=== PATIENT | male | born 1970 ===

== ENCOUNTER 2017-06-15 10:25 | Inpatient (IN) | payer SELFPAY ==
[2017-06-15 11:32] LABS: BASO % 0.9 % (0.0-2.0); EOS # 0.1 K/uL (0.0-0.7); EOS % 2.7 % (0.0-4.0); HEMATOCRIT 43.9 % (35.0-51.0); LYMPH # 0.9 K/uL (1.0-4.3); MEAN CORPUSCULAR HEMOGLOBIN 33.5 pg (27.0-31.0); MEAN CORPUSCULAR HGB CONC 33.1 g/dL (33.0-37.0); MEAN PLATELET VOLUME 7.4 fL (7.2-11.7); MONO # 0.3 K/uL (0.0-0.8); MONO % 9.7 % (0.0-10.0); RED CELL DISTRIBUTION WIDTH 13.4 % (11.5-14.5); WHITE BLOOD COUNT 2.9 K/uL (4.8-10.8)
[2017-06-15 11:39] LABS: RBC URINE 6 /hpf (0-3); URINE BACTERIA RARE (<OCC); URINE BILIRUBIN NEGATIVE (NEGATIVE); URINE BLOOD NEGATIVE (NEGATIVE); URINE COLOR Yellow (YELLOW); URINE GLUCOSE (UA) NORMAL (Normal); URINE KETONE TRACE mg/dL (NEGATIVE); URINE LEUKOCYTE ESTERASE 2+ Leu/uL (Negative); URINE PROTEIN NEGATIVE (NEGATIVE); WBC URINE 71 /hpf (0-5)
[2017-06-15 11:40] LABS: CHLORIDE 102 mmol/L (98-107)
[2017-06-15 11:41] LABS: SODIUM 141 mmol/L (132-148)
[2017-06-15 11:42] LABS: POTASSIUM 3.5 mmol/L (3.6-5.2)
[2017-06-15 11:44] LABS: ALB/GLOB RATIO 1.3 (1.0-2.1); ALKALINE PHOSPHATASE 76 U/L (38-126); ALT/SGPT 38 U/L (21-72); AST/SGOT 63 U/L (17-59); BILIRUBIN,TOTAL 1.1 mg/dL (0.2-1.3); BLOOD UREA NITROGEN 7 mg/dL (9-20); CARBON DIOXIDE 24 mmol/L (22-30); GFR AFRICAN-AMERICAN > 60; TOTAL PROTEIN 7.7 g/dL (6.3-8.3)
[2017-06-15 11:45] LABS: ALCOHOL SERUM 53 mg/dl (0-10); CALCIUM 8.6 mg/dl (8.6-10.4); GLUCOSE,RANDOM 80 mg/dL (75-110)
--- NOTE | 2017-06-15 12:16 | C.PDOC ---
History Of Present Illness 46-year-old male presents to the emergency department requesting detox from alcohol. Patient denies any physical complaints at this time, and has no suicidal or homicidal ideations. Time Seen by Provider: 06/15/17 10:31 Chief Complaint (Nursing): Substance Abuse History Per: Patient History/Exam Limitations: no limitations Onset/Duration Of Symptoms: Persistent Suicide/Self Injury Attempted (Context): None Modifying Factor(s): Alcohol Severity: Moderate Past Medical History Reviewed: Historical Data, Nursing Documentation, Vital Signs Vital Signs: Last Vital Signs Temp 97.8 F 06/19/17 09:00 Pulse 90 06/19/17 09:00 Resp 18 06/19/17 09:00 BP 116/81 06/19/17 09:00 Pulse Ox 99 06/19/17 09:00 Family History: States: No Known Family Hx - Social History Hx Alcohol Use: Yes Hx Substance Use: No Review Of Systems Except As Marked, All Systems Reviewed And Found Negative. Constitutional: Negative for: Fever Cardiovascular: Negative for: Chest Pain Respiratory: Negative for: Cough, Shortness of Breath Gastrointestinal: Negative for: Nausea, Vomiting, Abdominal Pain, Diarrhea Psych: Negative for: Suicidal ideation Physical Exam - Physical Exam Appears: Well, Non-toxic, No Acute Distress Skin: Normal Color, Warm, Dry, No Rash Head: Atraumatic, Normacephalic Eye(s): bilateral: Normal Inspection Oral Mucosa: Moist Neck: Normal, Normal ROM Cardiovascular: Rhythm Regular Respiratory: Normal Breath Sounds, No Rales, No Rhonchi, No Wheezing Extremity: Normal ROM Extremity: Bilateral: Atraumatic, Normal Color And Temperature, Normal ROM Neurological/Psych: Oriented x3 Gait: Steady ED Course And Treatment - Laboratory Results Result Diagrams: 06/15/17 11:25 06/15/17 11:25 O2 Sat by Pulse Oximetry: 100 (RA) Pulse Ox Interpretation: Normal Progress Note: Blood work, UA, UDS ordered and reviewed. 12:15- Patient medically cleared. Pending crisis. 5:00PM- Patient apparently told earlier by counselor that no beds available, however this information was not conveyed to nurse or myself. Crisis counselor Shona is pending call back from psychiatrist, there is currently bed available. 5:20pm- Patient c/o mild tremors and epigastric abd pain. PO Pepcid, Ativan and Librium ordered. 5:40pm - Patient accepted by Dr. Isabel for alcohol dependence admission. Disposition - Disposition Disposition: HOSPITALIZED Disposition Time: 17:40 Condition: STABLE - Clinical Impression Clinical Impression: Alcohol dependence - Scribe Statement The provider has reviewed the documentation as recorded by the Scribe (Lois Stanton) All medical record entries made by the Scribe were at my direction and personally dictated by me. I have reviewed the chart and agree that the record accurately reflects my personal performance of the history, physical exam, medical decision making, and the department course for this patient. I have also personally directed, reviewed, and agree with the discharge instructions and disposition. Decision To Admit - Pt Status Changed To: Hospital Disposition Of: Inpatient - Admit Certification Admit to Inpatient:: After my assessment, the patient will require hospitalization for at least two midnights. This is because of the severity of symptoms shown, intensity of services needed, and/or the medical risk in this patient being treated as an outpatient. - InPatient: Physician Admission Certification: I certify that this patient requires 2 or more midnights of care for the following reason:: see notes - . Bed Request Type: Detox Admitting Physician: Priya Isabel Patient Diagnosis: Alcohol dependence
--- NOTE | 2017-06-15 18:28 | PCM.BM ---
<Diane Stallings - Last Filed: 06/15/17 18:27> Treatment Plan Problems - Problems identified on initial assessmt Alcohol Abuse Date Initiated: 06/15/17 Time Initiated: 18:27 Assessment reference: NA Treatment assets and liabiliti Patient Assests: ADL independent Patient Liabilities: substance abuse - Milieu Protocol Maintain good personal hygiene: daily Encourage regular showers, daily Remind patient to perform daily oral care, other Assist patient to perform ADL's Maintain personal safety: every shift Educate patient to report safety concerns to staff, every shift Monitor environment for contraband/sharps Medication safety: Monitor for expected outcome, potential side effects: every shift, Assess barriers to learning: every shift, Assess readiness for medication education: every shift <Leah Weldon - Last Filed: 06/16/17 14:43> Family Contact Family involvement: Famliy/SO not involved Family contact: Patient declines to allow family contact at present - Goals for Treatment Patient goals for treatment: transition to short term rehab as requested. Discharge/Continuing Care - Education Needs Education Needs: Patient Medication, Patient Diagnosis/Disease Process, Patient Coping Skills, Patient Anger Management skills, Patient Placement options, Patient Community resources - Discharge Discharge Criteria: Tolerates medication w/o severe side effects, No longer exhibiting s/s of withdrawal, Reduction of target symptoms <Priya Isabel - Last Filed: 06/16/17 23:52> - Diagnosis (1) Alcohol use disorder, severe, dependence Status: Acute Interventions: 06/16/17 23:52 * Assess 7x/week regarding severity of withdrawal * Educate regarding risks, benefits, side effects and alternatives of medications * Use Motivational Interviewing for abstinence * Use CBT for relapse prevention * Medication management for withdrawal symptoms * Encourage medication assisted treatment *
[2017-06-16] MEDS ORDERED: Aluminum Hydroxide/Magnesium Hydroxide Susp (30 mL) PO PRN (00:34)
[2017-06-16] MEDS: Multiple Vitamins Tab PO SCH (09:23)
--- NOTE | 2017-06-16 15:50 | PCM.PSYCH ---
Initial Psychiatric Evaluation - Initial Psychiatric Evaluation Type of Admission: Voluntary Legal Status: Capacity Chief Complaint (in patient's own words): 'I needed to get clean and straighten out my life' History of Present Illness and Precipitating Events: Patient is a 46-year-old male, who is homeless and unemployed, came to the hospital seeking detox for alcohol. Patient states that he became homeless 2 weeks ago and started drinking alcohol , and abusing cocaine. He states that he drinks 2-4 pints of liquor, and 30 12- oz. beer cans daily. He also reports of abusing cocaine when he drinks alcohol, and states that he snorts "as much as I can get." Patient states that he was having pains all over body, shakes, and could not walk when he came in yesterday. Currently, he reports of only mild shakes. Patient denies any other symptoms. Patient denies any suicidal ideations. Patient denies any delusions, paranoia, or hallucinations. Patient reports of smoking cigarettes 2 PPD. He denies abusing any other substances. Patient denies any past psychiatric history, past psychiatric hospitalizations, past medical history, or family psychiatric history. Patient reports history of rehabs for alcohol use disorder twice - one 1.5 months ago, and another years ago. Patient reports extensive history of drinking, and states that he drank more than 4 pints of liquor plus "many" beers every day. He states that his drinking exacerbated when his children moved out of his house 6-8 months ago. He also reports of abusing cocaine when he drinks alcohol. Patient denies abusing any other substances. After detox, patient states that he will go to a correction, and try to find a job. Current Medications: Active Medications Generic Name Dose Route Start Last Admin Trade Name Freq PRN Reason Stop Dose Admin Acetaminophen 650 mg 06/16/17 00:34 Tylenol 325mg Tab PO Q4H PRN Fever greater than 101 F Al Hydrox/Mg Hydrox/Simethicone 30 ml 06/16/17 00:34 Maalox 30 Ml PO TID PRN Indigestion / Heartburn Chlordiazepoxide 25 mg 06/16/17 06:00 06/16/17 12:51 Librium PO 06/20/17 05:59 25 mg Q6 SHANEL Administration Taper Chlordiazepoxide 25 mg 06/16/17 05:57 06/16/17 09:23 Librium PO 25 mg Q4H PRN Administration Alcohol Withdrawal Clonidine HCl 0.1 mg 06/16/17 00:33 06/16/17 13:34 Catapres PO 0.1 mg Q4H PRN Administration Symptoms of alcohol withdrawl Folic Acid 1 mg 06/16/17 10:00 06/16/17 09:23 Folic Acid PO 1 mg DAILY SHANEL Administration Multivitamins 1 tab 06/16/17 10:00 06/16/17 09:23 Hexavitamin PO 1 tab DAILY SHANEL Administration Ondansetron HCl 4 mg 06/16/17 00:34 Zofran Tab PO Q8 PRN Nausea/Vomiting Thiamine HCl 100 mg 06/16/17 10:00 06/16/17 09:23 Vitamin B1 Tab PO 100 mg DAILY SHANEL Administration Trazodone HCl 50 mg 06/16/17 00:33 Desyrel PO HS PRN Insomnia Past Psychiatric History - Past Psychiatric History Previous Treatment History: None Pertinent Medical Hx (Current Medical&Sleep Prob, Allergies): Allergies Allergy/AdvReac Type Severity Reaction Status Date / Time No Known Allergies Allergy Unverified 06/15/17 11:02 No Known Home Med 06/15/17 Review of Systems - Neurological Neurological: Tremor Mental Status Examination - Personal Presentation Personal Presentation: Looks stated age - Affect Affect: Other (Appropriate) - Motor Activity Motor Activity: Calm - Reliability in Providing Information Reliability in Providing Information: Good - Speech Speech: Organized - Mood Mood: Neutral - Formal Thought Process Formal Thought Process: No Impairment - Cognitive Functions Orientation: Person, Place, Situation, Time Sensorium: Alert Estimate of Intelligence: Below average Judgement: Intact, as evidence by: Insight regarding need for hospitalization Memory: Recent intact, as evidence by: Ability to recall events of the day, Remote intact, as evidenced by: Abilit to recall sig. life events - Risk Risk: Withdrawal, Diminished functioning - Strength & Assets Inventory Strength & Assets Inventory: Cooperative - Limitations Limitations: Living alone DSM 5 DX - DSM 5 DSM 5 Diagnosis: alcohol use disorder - severe alcohol withdrawal cocaine use disorder - severe - Recommended/Plan of Treatment Treatment Recommendations and Plan of Treatment: Librium detox Gabapentin for augmentation As needed meds and vitamins Attend groups and activities [place] for abstinence and CBT for relapse prevention Support and psychoeducation Consider and encourage MAT Refer to after care - pt states he will go to a correction 33 min Projected ELOS: 3-5 days
[2017-06-17] MEDS: Multiple Vitamins Tab PO SCH (09:07)
[2017-06-17 13:38] VITALS: RESP 18
--- NOTE | 2017-06-17 14:09 | PCM.PYCHPN ---
Psychiatric Progress Note - Psychiatric Progress Note Patient seen today, length of contact: 15 min Patient Chief Complaint: "A little better than yesterday" Problems Identified/Issues Discussed: Patient is seen, evaluated, and case discussed with staff. Patient reports of feeling better today. He states that tremors have stopped. He states that he was not able to sleep well. Patient denies any other symptoms. He denies any suicidal ideations. Patient is compliant with all medications, and denies any side effects. Patient states that he will either go to a penitentiary or his father's home after discharge. Support and psychoeducation given. Medication Change: Yes (detox changes daily) Medical Record Reviewed: Yes Mental Status Examination - Cognitive Function Orientation: Person, Place, Situation, Time Memory: Intact Attention: WNL Concentration: Poor Association: WNL Fund of Knowledge: Poor - Mood Mood: Neutral - Affect Affect: Other (Appropriate) - Speech Speech: Appropriate - Formal Thought Process Formal Thought Process: No Impairment - Suicidal Ideation Suicidal Ideation: No - Homicidal Ideation Homicidal Ideation: No Goal/Treatment Plan - Goal/Treatment Plan Need for Continued Stay: Discharge may exacerbated symptoms Progress Toward Problem(s) and Goals/Treatment Plan: Librium detox Gabapentin for augmentation As needed meds and vitamins Attend groups and activities [place] for abstinence and CBT for relapse prevention Support and psychoeducation Consider and encourage MAT Refer to after care - pt states he will go to a penitentiary or back to his father's house Estimated Date of D/C: 06/18/17
[2017-06-18] MEDS: Multiple Vitamins Tab PO SCH (09:19)
--- NOTE | 2017-06-18 11:37 | PCM.PYCHPN ---
Psychiatric Progress Note - Psychiatric Progress Note Patient seen today, length of contact: 16 min Patient Chief Complaint: "Couldn't sleep last night" Problems Identified/Issues Discussed: Patient is seen, evaluated, and case discussed with staff. Patient reports of feeling "okay" today. He states that tremors have stopped. He states that he could not sleep well. Patient denies any other symptoms. He denies any suicidal ideations. Patient is compliant with all medications, and denies any side effects. Patient states that he will either go to a fdc, his father's home, or perhaps back to [place] after discharge. Support and psychoeducation given. Medication Change: Yes (detox changes daily) Medical Record Reviewed: Yes Mental Status Examination - Cognitive Function Orientation: Person, Place, Situation, Time Memory: Intact Attention: WNL Concentration: Poor Association: WNL Fund of Knowledge: Poor - Mood Mood: Neutral - Affect Affect: Depressed - Speech Speech: Appropriate - Formal Thought Process Formal Thought Process: No Impairment - Suicidal Ideation Suicidal Ideation: No - Homicidal Ideation Homicidal Ideation: No Goal/Treatment Plan - Goal/Treatment Plan Need for Continued Stay: Discharge may exacerbated symptoms Progress Toward Problem(s) and Goals/Treatment Plan: Librium detox As needed meds and vitamins Attend groups and activities [place] for abstinence and CBT for relapse prevention Support and psychoeducation Consider and encourage MAT Refer to after care - pt states he will go to a fdc, back to his father's house, or [place] Estimated Date of D/C: 06/19/17
--- NOTE | 2017-06-19 08:34 | PCM.PYCHDC ---
Mental Status Examination - Mental Status Examination Orientation: Person, Place, Situation, Time Memory: Intact Mood: Anxious Affect: Constricted Speech: Appropriate Attention: WNL Concentration: WNL Association: WNL Fund of Knowledge: WNL Formal Thought Process: No Impairment Suicidal Ideation: No Current Homicidal Ideation?: No Discharge Summary - Discharge Note Reason for Hospitalization: Alcohol detox Psychiatric History (includes Medical, Family, Personal Hx): None Consultations:: List each consultation separately and include: 1. Reason for request. 2. Findings. 3. Follow-up Summary of Hospital Course include:: 1. Description of specific treatment plan utilized for patients during their course of treatmen. 2. Summarize the time- course for resolution of acute symptoms and/or regressed behaviors. 3. Describe issues identified and worked on during hospitalization. 4. Describe medication utilized. 5. Describe medical problems identified and treated. 6. Reassessment of suicide risk Summary of Hospital Course: On admission: Patient is a 46-year-old male, who is homeless and unemployed, came to the hospital seeking detox for alcohol. Patient states that he became homeless 2 weeks ago and started drinking alcohol , and abusing cocaine. He states that he drinks 2-4 pints of liquor, and 30 12- oz. beer cans daily. He also reports of abusing cocaine when he drinks alcohol, and states that he snorts "as much as I can get." Patient states that he was having pains all over body, shakes, and could not walk when he came in yesterday. Currently, he reports of only mild shakes. Patient denies any other symptoms. Patient denies any suicidal ideations. Patient denies any delusions, paranoia, or hallucinations. Patient reports of smoking cigarettes 2 PPD. He denies abusing any other substances. Patient denies any past psychiatric history, past psychiatric hospitalizations, past medical history, or family psychiatric history. Patient reports history of rehabs for alcohol use disorder twice - one 1.5 months ago, and another years ago. Patient reports extensive history of drinking, and states that he drank more than 4 pints of liquor plus "many" beers every day. He states that his drinking exacerbated when his children moved out of his house 6-8 months ago. He also reports of abusing cocaine when he drinks alcohol. Patient denies abusing any other substances. After detox, patient states that he will go to a retirement, and try to find a job. Hospital course: The pt was admitted and started on treatment with psychotherapy, support, psychoeducation and medications. [place] and CBT used. The pt attended groups and activities, as well as milieu therapy. All the risks and benefits of medications are discussed and the patient understood and agreed. The pt improved with the treatments provided. After care discussed with the patient. He was undecided and unmotivated. He refused IOP or rehab options. The real reason he was here was mainly bc his fa "kicked him out." and by doing detox he hoped to return He also has a plan to go back to [place] if his plan A fails. - Final Diagnosis (DSM 5) Condition upon Discharge: STABLE DSM 5: alcohol use disorder - severe alcohol withdrawal cocaine use disorder - severe Disposition: HOME/ ROUTINE Follow-up Treatment Plan: Continue below medications after discharge. Follow after care plan as discussed. Use relapse prevention skills Return to ER or call 911 if suicidal, homicidal or symptoms relapse. Stay away from stress, alcohol and drugs. See primary doctor once a year. Prescriptions/Medication Reconciliation: traZODone [Desyrel] 50 mg PO HS PRN #30 tab PRN Reason: Insomnia - Smoking Cessation Smoking Cessation Medication prescribed: No - Antipsychotic Medications Pt discharged on 2 or more routine antipsychotic medications: No
[2017-06-19] MEDS: Multiple Vitamins Tab PO SCH (09:48)
[2017-06-19 11:26] VITALS: BP 116/81; PULSE 90; TEMP 97.8
[2017-06-19 13:01] VITALS: O2SAT 100
== END 2017-06-19 10:45 | disposition home or self-care (01) | DRG 999 ==
LOC: C.ER 10:25 → C.7D 17:36
PROVIDERS: ADMIT Psychiatry & Neurology Psychiatry; ATTEND Psychiatry & Neurology Psychiatry
PROC: HZ2ZZZZ Detoxification Services for Substance Abuse Treatment (ICD-10-PCS; principal; 2017-06-15)
DX: Y90.2 Blood alcohol level of 40-59 mg/100 ml (principal); F10.220 Alcohol dependence with intoxication, uncomplicated; F10.230 Alcohol dependence with withdrawal, uncomplicated; F14.90 Cocaine use, unspecified, uncomplicated; F17.210 Nicotine dependence, cigarettes, uncomplicated; Z59.0 Homelessness

== ENCOUNTER 2017-07-17 18:55 | Observation (INO) | payer SELFPAY ==
--- NOTE | 2017-07-17 21:01 | C.PDOC ---
History Of Present Illness Patient presents to the ER with acute ETOH intoxication. Patient states he does not want detox and is requesting a place to day the night. Denies suicidal ideation or homicidal ideation. Time Seen by Provider: 07/17/17 21:00 Chief Complaint (Nursing): Psychiatric Evaluation History Per: Patient History/Exam Limitations: no limitations Onset/Duration Of Symptoms: Hrs Current Symptoms Are (Timing): Still Present Suicide/Self Injury Attempted (Context): None Modifying Factor(s): Alcohol Severity: None Pain Scale Rating Of: 0 Associated Symptoms: denies: Depression, Suicidal Thoughts, Suicidal Plan Involuntary Hold By: None Recent travel outside of the [place]: No Past Medical History Reviewed: Historical Data, Nursing Documentation, Vital Signs Vital Signs: Last Vital Signs Temp 98.1 F 07/18/17 05:07 Pulse 71 07/18/17 05:07 Resp 16 07/18/17 05:07 BP 103/69 07/18/17 05:07 Pulse Ox 97 07/18/17 05:07 - Medical History PMH: Asthma, Depression Surgical History: No Surg Hx - [facility] DETOXIFICATION SERVICES FOR SUBSTANCE ABUSE TREATMENT (06/15/17) Family History: States: No Known Family Hx - Social History Hx Alcohol Use: Yes Hx Substance Use: No - Immunization History Hx Tetanus Toxoid Vaccination: No Hx Influenza Vaccination: No Hx Pneumococcal Vaccination: No Review Of Systems Constitutional: Negative for: Fever, Chills Gastrointestinal: Negative for: Nausea, Vomiting, Diarrhea Physical Exam - Physical Exam Appears: Non-toxic, Other (Arousable) Skin: Warm, Dry Oral Mucosa: Moist Chest: Symmetrical, No Tenderness Cardiovascular: Rhythm Regular, No Murmur Respiratory: No Rales, No Rhonchi, No Wheezing Gastrointestinal/Abdominal: Soft, No Tenderness Extremity: Normal ROM (x4) Neurological/Psych: Oriented x3 ED Course And Treatment - Laboratory Results Result Diagrams: 07/17/17 21:26 07/17/17 21:26 O2 Sat by Pulse Oximetry: 96 (Room air) Pulse Ox Interpretation: Normal Progress Note: Blood work and urinalysis ordered. ED OBSERVATION Discharge: Yes Date of observation admission: 07/17/17 Time of observation admission: 21:11 - Observation admission statement Patient is being placed in observation because:: Acute ETOH intoxication - Goals of Observation Goals of observation are:: Sobriety - Progress Note Progress Note: 07/17/17 21:11 vitals stable 07/18/17 01:31 no complaints 07/18/17 03:31 vitals stable Disposition Counseled Patient/Family Regarding: Studies Performed, Diagnosis, Need For Followup - Disposition Disposition: HOME/ ROUTINE Disposition Time: 21:01 Condition: FAIR - Clinical Impression Clinical Impression: Alcohol intoxication - Scribe Statement The provider has reviewed the documentation as recorded by the Scribe Omar Ivy All medical record entries made by the Ronnyibshona were at my direction and personally dictated by me. I have reviewed the chart and agree that the record accurately reflects my personal performance of the history, physical exam, medical decision making, and the department course for this patient. I have also personally directed, reviewed, and agree with the discharge instructions and disposition.
[2017-07-17 21:30] LABS: EOS # 0.1 K/uL (0.0-0.7); HEMATOCRIT 37.6 % (35.0-51.0); LYMPH # 1.5 K/uL (1.0-4.3); LYMPH % 41.9 % (20.0-40.0); MEAN CELL VOLUME 101.5 fL (80.0-94.0); MEAN CORPUSCULAR HEMOGLOBIN 34.2 pg (27.0-31.0); MEAN CORPUSCULAR HGB CONC 33.7 g/dL (33.0-37.0); MONO # 0.3 K/uL (0.0-0.8); MONO % 8.6 % (0.0-10.0); NRBC % 0.1 % (0.0-2.0); RED CELL DISTRIBUTION WIDTH 13.8 % (11.5-14.5); WHITE BLOOD COUNT 3.6 K/uL (4.8-10.8)
[2017-07-17 21:37] LABS: CHLORIDE 106 mmol/L (98-107)
[2017-07-17 21:38] LABS: POTASSIUM 3.7 mmol/L (3.6-5.2); SODIUM 143 mmol/L (132-148)
[2017-07-17 21:40] LABS: ALB/GLOB RATIO 1.3 (1.0-2.1); ALKALINE PHOSPHATASE 53 U/L (38-126); AST/SGOT 42 U/L (17-59); BILIRUBIN,TOTAL 0.5 mg/dL (0.2-1.3); BLOOD UREA NITROGEN 11 mg/dL (9-20); CARBON DIOXIDE 24 mmol/L (22-30); GFR AFRICAN-AMERICAN > 60; TOTAL PROTEIN 6.5 g/dL (6.3-8.3)
[2017-07-17 21:41] LABS: ALCOHOL SERUM 265 mg/dl (0-10); ALT/SGPT 37 U/L (21-72); GLUCOSE,RANDOM 92 mg/dL (75-110)
[2017-07-17 21:54] LABS: URINE BILIRUBIN NEGATIVE (NEGATIVE); URINE BLOOD NEGATIVE (NEGATIVE); URINE COLOR Yellow (YELLOW); URINE GLUCOSE (UA) NORMAL (Normal); URINE KETONE NEGATIVE (NEGATIVE); URINE LEUKOCYTE ESTERASE NEG Leu/uL (Negative); URINE PROTEIN NEGATIVE (NEGATIVE); URINE UROBILINOGEN NORMAL mg/dL (0.2-1.0); WBC URINE 4 /hpf (0-5)
[2017-07-18 05:08] VITALS: BP 103/69; PULSE 71; RESP 16; TEMP 98.1
[2017-07-18 05:26] VITALS: O2SAT 96
== END 2017-07-18 05:26 | disposition home or self-care (01) ==
LOC: C.ER 18:55 → C.9OBSV 21:09
PROVIDERS: ADMIT Emergency Medicine; ATTEND Emergency Medicine
DX: F10.120 Alcohol abuse with intoxication, uncomplicated (principal); Y90.8 Blood alcohol level of 240 mg/100 ml or more; J45.909 Unspecified asthma, uncomplicated
CPT/HCPCS: 80053; 81001; 85025; 99285; G0378; G0480

== ENCOUNTER 2017-08-16 01:33 | Observation (INO) | payer SELFPAY ==
--- NOTE | 2017-08-16 01:44 | C.PDOC ---
History Of Present Illness The patient presents to the ED via EMS for evaluation of public alcohol intoxication for an unknown duration. Patient was found sleeping on the sidewalk prior to arrival. He admits to alcohol intake and reports an injury to his right knee. Otherwise, he denies suicidal/homicidal ideation. Time Seen by Provider: 08/16/17 01:43 Chief Complaint (Nursing): Substance Abuse History Per: Patient, EMS History/Exam Limitations: intoxication Onset/Duration Of Symptoms: Unknown Current Symptoms Are (Timing): Still Present Suicide/Self Injury Attempted (Context): None Modifying Factor(s): Alcohol Severity: None Pain Scale Rating Of: 0 Associated Symptoms: denies: Suicidal Thoughts, Suicidal Plan Involuntary Hold By: None Recent travel outside of the [place]: No Additional History Per: Patient, EMS Past Medical History Reviewed: Historical Data, Nursing Documentation, Vital Signs Vital Signs: Last Vital Signs Temp 98.1 F 08/16/17 01:45 Pulse 82 08/16/17 01:45 Resp 22 08/16/17 01:45 BP 134/87 08/16/17 01:45 Pulse Ox 97 08/16/17 02:18 - Medical History PMH: Asthma, Depression Surgical History: No Surg Hx - [facility] Procedures DETOXIFICATION SERVICES FOR SUBSTANCE ABUSE TREATMENT (06/15/17) Family History: States: Unknown Family Hx - Social History Hx Alcohol Use: Yes Hx Substance Use: No - Immunization History Hx Tetanus Toxoid Vaccination: No Hx Influenza Vaccination: No Hx Pneumococcal Vaccination: No Review Of Systems Constitutional: Negative for: Fever, Chills Cardiovascular: Negative for: Chest Pain, Palpitations Respiratory: Negative for: Cough, Shortness of Breath Gastrointestinal: Negative for: Nausea, Vomiting, Abdominal Pain Skin: Positive for: Other (excoriation to right knee ). Negative for: Rash, Lesions, Jaundice, Bruising Neurological: Negative for: Weakness, Numbness Psych: Positive for: Other (EtOH intoxication ). Negative for: Suicidal ideation Physical Exam - Physical Exam Appears: Non-toxic, No Acute Distress, Other (visibly intoxicated ) Skin: Warm, Dry, Other (1cm superficial excoriations to right knee ) Head: Atraumatic Eye(s): bilateral: Normal Inspection Oral Mucosa: Moist, Other (alcohol on breath ) Neck: Supple Chest: Symmetrical, No Deformity, No Tenderness Cardiovascular: Rhythm Regular, No Murmur Respiratory: No Rales, No Rhonchi, No Wheezing Gastrointestinal/Abdominal: Soft, No Tenderness Extremity: Normal ROM, No Tenderness, No Calf Tenderness, Capillary Refill ( less than 2 seconds ), No Deformity, No Swelling Neurological/Psych: Other (arousable to touch and verbal stimuli ) Gait: Unsteady ED Course And Treatment O2 Sat by Pulse Oximetry: 97 (on RA) Pulse Ox Interpretation: Normal Progress Note: Patient placed in ED OBS for acute alcohol intoxication and is pending sobriety. Reevaluation Time: 05:23 Reassessment Condition: Improved ED OBSERVATION Date of observation admission: 08/16/17 Time of observation admission: 01:44 - Observation admission statement Patient is being placed in observation because:: alcohol intoxication - Goals of Observation Goals of observation are:: sobriety - Progress Note Progress Note: 08/16/17 01:45 vitals stable Disposition Counseled Patient/Family Regarding: Studies Performed, Diagnosis, Need For Followup - Disposition Disposition: HOME/ ROUTINE Disposition Time: 01:43 Condition: FAIR - Clinical Impression Clinical Impression: Alcohol intoxication - Scribe Statement The provider has reviewed the documentation as recorded by the Scribe (Jessica Miller) Provider Attestation: All medical record entries made by the Scribe were at my direction and personally dictated by me. I have reviewed the chart and agree that the record accurately reflects my personal performance of the history, physical exam, medical decision making, and the department course for this patient. I have also personally directed, reviewed, and agree with the discharge instructions and disposition.
[2017-08-16 01:46] VITALS: PULSE 82
[2017-08-16 05:35] VITALS: BP 99/62; RESP 18; TEMP 98; O2SAT 96
== END 2017-08-16 06:00 | disposition home or self-care (01) ==
LOC: C.ER 01:33 → C.9OBSV 01:44
PROVIDERS: ADMIT Emergency Medicine; ATTEND Emergency Medicine
DX: F10.120 Alcohol abuse with intoxication, uncomplicated (principal)
CPT/HCPCS: 99285; G0378

== ENCOUNTER 2017-10-28 19:39 | Emergency (ER) | payer SELFPAY ==
--- NOTE | 2017-10-28 20:46 | C.PDOC ---
History Of Present Illness 47 year old male presents to the ED for evaluation of bilateral shoulder pain which began 2 days ago. Patient states he sustained a fall two days ago and injured his right shoulder. He denies head injury, LOC, neck pain, chest pain, extremity numbness/weakness. Chief Complaint (Nursing): Chest Pain History Per: Patient History/Exam Limitations: no limitations Onset/Duration Of Symptoms: Days (2) Current Symptoms Are (Timing): Still Present Quality: "Pain" Additional History Per: Patient Past Medical History Reviewed: Historical Data, Nursing Documentation, Vital Signs Vital Signs: Last Vital Signs Temp 97.9 F 10/28/17 23:09 Pulse 91 H 10/28/17 23:09 Resp 18 10/28/17 23:09 BP 112/72 10/28/17 23:09 Pulse Ox 97 10/28/17 23:09 - Medical History PMH: Asthma, Depression Denies: Diabetes, Hepatitis, HIV, HTN, Chronic Kidney Disease, Seizures, Sexually Transmitted Disease Surgical History: No Surg Hx - [facility] Procedures DETOXIFICATION SERVICES FOR SUBSTANCE ABUSE TREATMENT (06/15/17) Family History: States: Unknown Family Hx - Social History Hx Alcohol Use: Yes Hx Substance Use: No - Immunization History Hx Tetanus Toxoid Vaccination: No Hx Influenza Vaccination: No Hx Pneumococcal Vaccination: No Review Of Systems Cardiovascular: Negative for: Chest Pain Musculoskeletal: Positive for: Shoulder Pain (bilateral ). Negative for: Neck Pain Neurological: Negative for: Weakness, Numbness, Other (head injury/LOC ) Physical Exam - Physical Exam Appears: Non-toxic, No Acute Distress Skin: Normal Color, Warm, Dry Head: Atraumatic, Normacephalic Eye(s): bilateral: Normal Inspection Oral Mucosa: Moist Neck: Supple Chest: Symmetrical, No Deformity, No Tenderness Cardiovascular: Rhythm Regular, No Murmur Respiratory: Normal Breath Sounds, No Rales, No Rhonchi, No Stridor, No Wheezing Extremity: No Normal ROM (slightly limited in right shoulder secondary to pain ) , Tenderness (to anterior aspect of right shoulder on palpation ), Capillary Refill (less than 2 seconds), No Deformity, No Swelling Neurological/Psych: Oriented x3, Normal Speech, Normal Cognition Gait: Steady ED Course And Treatment O2 Sat by Pulse Oximetry: 96 (on RA) Pulse Ox Interpretation: Normal Progress Note: Right shoulder XR, CXR ordered and reviewed. Toradol IM administered. Disposition Counseled Patient/Family Regarding: Diagnosis - Disposition Referrals: [facility] [Outside] Disposition: HOME/ ROUTINE Disposition Time: 23:30 Condition: STABLE Prescriptions: Naproxen 375 mg PO TIDPC #14 tablet Instructions: Contusion in Adults (ED), Shoulder Pain (ED) Forms: [facility] (Ethiopian) - POA Present On Arrival: None - Clinical Impression Clinical Impression: Shoulder pain, Contusion - Scribe Statement The provider has reviewed the documentation as recorded by the Scribe (Jessica Miller) Provider Attestation: All medical record entries made by the Scribe were at my direction and personally dictated by me. I have reviewed the chart and agree that the record accurately reflects my personal performance of the history, physical exam, medical decision making, and the department course for this patient. I have also personally directed, reviewed, and agree with the discharge instructions and disposition.
[2017-10-28 23:10] VITALS: BP 112/72; PULSE 91; RESP 18; TEMP 97.9
[2017-10-28 23:33] VITALS: O2SAT 96
--- NOTE | 2017-10-29 09:00 | RAD ---
PROCEDURE: Radiographs of the Right Shoulder HISTORY: pain/ injury COMPARISON: No prior. FINDINGS: BONES: No fracture. JOINTS: . Glenohumeral and acromioclavicular hypertrophic arthrosis SOFT TISSUES: Normal. OTHER FINDINGS: None. IMPRESSION: Arthrosis. No fracture or dislocation
--- NOTE | 2017-10-29 09:03 | RAD ---
HISTORY: pain -posterior chest COMPARISON: No prior. TECHNIQUE: Chest PA and lateral FINDINGS: LUNGS: Diffuse increased interstitial lung markings. Few scattered nodular densities projecting over the right upper lung zone and left mid lung zone may represent confluence of shadows with ribs and vessels. Comparison to prior studies if available may be helpful. PLEURA: No significant pleural effusion identified. No pneumothorax apparent. CARDIOVASCULAR: Normal. OSSEOUS STRUCTURES: No significant abnormalities. VISUALIZED UPPER ABDOMEN: Normal. OTHER FINDINGS: None. IMPRESSION: Diffuse increased interstitial lung markings. Few scattered nodular densities projecting over the right upper lung zone and left mid lung zone may represent confluence of shadows with ribs and vessels. Comparison to prior studies if available may be helpful.
--- NOTE | 2017-11-02 19:22 | CARD ---
APPROVED REPORT EKG Measurement Heart [id number] <Conclusion> Normal sinus rhythm Minimal voltage criteria for LVH, may be normal variant Septal infarct, age undetermined Abnormal ECG
== END 2017-10-28 23:53 | disposition home or self-care (01) ==
LOC: C.ER 19:39
DX: S40.011A Contusion of right shoulder, initial encounter (principal); W18.30XA Fall on same level, unspecified, initial encounter; M25.511 Pain in right shoulder
CPT/HCPCS: 71020; 73030; 96372; 99284; J1885

== ENCOUNTER 2017-11-07 21:11 | Emergency (ER) | payer SELFPAY ==
--- NOTE | 2017-11-07 21:40 | C.PDOC ---
History Of Present Illness 47 year old male is brought in via BIBA for ETOH intoxication. Per BIBA patient was found by a bystander on the street. Patient is lethargic, intoxicated and admits to drinking alcohol today. Patient denies SI/HI, hallucinations or other physical complaints. Time Seen by Provider: 11/07/17 21:28 Chief Complaint (Nursing): Substance Abuse History Per: Patient, EMS History/Exam Limitations: intoxication Onset/Duration Of Symptoms: Hrs Current Symptoms Are (Timing): Still Present Suicide/Self Injury Attempted (Context): None Modifying Factor(s): Alcohol Associated Symptoms: denies: Depression, Suicidal Thoughts, Suicidal Plan Recent travel outside of the [place]: No Additional History Per: Patient, EMS Past Medical History Reviewed: Historical Data, Nursing Documentation, Vital Signs Vital Signs: Last Vital Signs Temp 99.2 F 11/08/17 04:55 Pulse 96 H 11/08/17 04:55 Resp 16 11/08/17 04:55 BP 112/69 11/08/17 04:55 Pulse Ox 96 11/08/17 04:55 - Medical History PMH: Asthma, Depression Denies: Diabetes, Hepatitis, HIV, HTN, Chronic Kidney Disease, Seizures, Sexually Transmitted Disease Surgical History: No Surg Hx - [facility] Procedures DETOXIFICATION SERVICES FOR SUBSTANCE ABUSE TREATMENT (06/15/17) Family History: States: Unknown Family Hx - Social History Hx Alcohol Use: Yes Hx Substance Use: No - Immunization History Hx Tetanus Toxoid Vaccination: No Hx Influenza Vaccination: No Hx Pneumococcal Vaccination: No Review Of Systems Constitutional: Negative for: Fever, Chills Cardiovascular: Negative for: Chest Pain, Palpitations Respiratory: Negative for: Cough, Shortness of Breath Gastrointestinal: Negative for: Nausea, Vomiting, Abdominal Pain Musculoskeletal: Negative for: Back Pain Skin: Negative for: Rash Neurological: Negative for: Weakness, Numbness Psych: Negative for: Depression, Suicidal ideation Physical Exam - Physical Exam Appears: Non-toxic, Other (Lethargic, intoxicated) Skin: Normal Color, Warm, Dry Head: Atraumatic, Normacephalic Nose: No Discharge, No Deformity Oral Mucosa: Moist Neck: Normal ROM, Supple Chest: Symmetrical Cardiovascular: Rhythm Regular, No Murmur Respiratory: Normal Breath Sounds, No Rales, No Rhonchi, No Wheezing Gastrointestinal/Abdominal: Soft, No Tenderness, No Distention, No Rebound Extremity: Normal ROM, No Pedal Edema, No Calf Tenderness, No Swelling Neurological/Psych: Oriented x3 ED Course And Treatment O2 Sat by Pulse Oximetry: 97 (On RA) Pulse Ox Interpretation: Normal Progress Note: awake and ambulatory. Disposition - Disposition Disposition: HOME/ ROUTINE Disposition Time: 06:30 Condition: IMPROVED Forms: [facility] (Ukrainian) - Clinical Impression Clinical Impression: Alcohol abuse, Alcohol intoxication - Scribe Statement The provider has reviewed the documentation as recorded by the Scribe Freedom Campbell All medical record entries made by the Scribe were at my direction and personally dictated by me. I have reviewed the chart and agree that the record accurately reflects my personal performance of the history, physical exam, medical decision making, and the department course for this patient. I have also personally directed, reviewed, and agree with the discharge instructions and disposition.
[2017-11-08 04:57] VITALS: BP 112/69; TEMP 99.2
[2017-11-08 06:45] VITALS: PULSE 92; RESP 18; O2SAT 99
== END 2017-11-08 06:25 | disposition home or self-care (01) ==
LOC: C.ER 21:11
DX: F10.129 Alcohol abuse with intoxication, unspecified (principal)

== ENCOUNTER 2017-11-15 13:34 | Inpatient (IN) | payer OTHER ==
--- NOTE | 2017-11-15 14:10 | RAD ---
PROCEDURE: CHEST RADIOGRAPH, 1 VIEW HISTORY: Cough COMPARISON: 10/28/2017. FINDINGS: LUNGS: The lungs are clear. PLEURA: No pneumothorax or pleural fluid seen. CARDIOVASCULAR: Normal. OSSEOUS STRUCTURES: No significant abnormalities. VISUALIZED UPPER ABDOMEN: Normal. OTHER FINDINGS: None. IMPRESSION: No active pulmonary disease.
[2017-11-15 14:26] LABS: BASO % 0.8 % (0.0-2.0); EOS % 0.7 % (0.0-4.0); LYMPH # 1.5 K/uL (1.0-4.3); LYMPH % 26.9 % (20.0-40.0); MEAN CORPUSCULAR HEMOGLOBIN 35.1 pg (27.0-31.0); MEAN CORPUSCULAR HGB CONC 34.7 g/dL (33.0-37.0); MEAN PLATELET VOLUME 7.5 fL (7.2-11.7); MONO # 0.4 K/uL (0.0-0.8); MONO % 7.3 % (0.0-10.0); RED CELL DISTRIBUTION WIDTH 12.8 % (11.5-14.5); WHITE BLOOD COUNT 5.4 K/uL (4.8-10.8)
[2017-11-15 14:43] LABS: ALB/GLOB RATIO 1.2 (1.0-2.1); ALKALINE PHOSPHATASE 74 U/L (38-126); ALT/SGPT 31 U/L (21-72); AST/SGOT 47 U/L (17-59); BILIRUBIN,TOTAL 0.6 mg/dL (0.2-1.3); BLOOD UREA NITROGEN 10 mg/dL (9-20); CARBON DIOXIDE 23 mmol/L (22-30); CHLORIDE 104 mmol/L (98-107); GFR AFRICAN-AMERICAN > 60; GLUCOSE,RANDOM 78 mg/dL (75-110); POTASSIUM 3.8 mmol/L (3.6-5.2); SODIUM 138 mmol/L (132-148); TOTAL PROTEIN 7.6 g/dL (6.3-8.3)
[2017-11-15 15:03] LABS: ALCOHOL SERUM 368 mg/dl (0-10)
[2017-11-15 15:38] LABS: RBC URINE < 1 /hpf (0-3); URINE BILIRUBIN NEGATIVE (NEGATIVE); URINE BLOOD NEGATIVE (NEGATIVE); URINE COLOR Colorless (YELLOW); URINE GLUCOSE (UA) NORMAL (Normal); URINE KETONE NEGATIVE (NEGATIVE); URINE LEUKOCYTE ESTERASE NEG Leu/uL (Negative); URINE PROTEIN NEGATIVE (NEGATIVE); URINE UROBILINOGEN NORMAL mg/dL (0.2-1.0); WBC URINE 1 /hpf (0-5)
[2017-11-15] MEDS ORDERED: Multivitamin (MVI) 10 ML, Thiamine 100 MG, Folic Acid 1 MG in Sodium Chloride 0.9% 1,00... IV STA (19:55)
--- NOTE | 2017-11-15 20:18 | C.PDOC ---
History Of Present Illness Pt is intoxicated and is requesting detox from alcohol. Time Seen by Provider: 11/15/17 13:51 Chief Complaint (Nursing): Substance Abuse History Per: Patient, EMS History/Exam Limitations: intoxication Onset/Duration Of Symptoms: Days Current Symptoms Are (Timing): Still Present Suicide/Self Injury Attempted (Context): None Modifying Factor(s): Alcohol Severity: Severe Associated Symptoms: denies: Suicidal Thoughts, Suicidal Plan Additional History Per: Prior Records Past Medical History Reviewed: Historical Data, Nursing Documentation, Vital Signs Vital Signs: Last Vital Signs Temp 97.7 F 11/15/17 18:03 Pulse 74 11/15/17 21:35 Resp 12 11/15/17 21:35 BP 141/85 11/15/17 21:35 Pulse Ox 99 11/15/17 21:35 - Medical History PMH: Asthma, Depression Other PMH: Alcohol abuse - [facility] Procedures DETOXIFICATION SERVICES FOR SUBSTANCE ABUSE TREATMENT (06/15/17) Family History: States: Unknown Family Hx - Social History Hx Tobacco Use: Yes Hx Alcohol Use: Yes Hx Substance Use: No - Immunization History Hx Tetanus Toxoid Vaccination: No Hx Influenza Vaccination: No Hx Pneumococcal Vaccination: No Review Of Systems Constitutional: Negative for: Fever Respiratory: Positive for: Cough. Negative for: Hemoptysis Gastrointestinal: Negative for: Abdominal Pain Genitourinary: Negative for: Dysuria Neurological: Negative for: Seizures Physical Exam - Physical Exam Appears: No Acute Distress, Other (AOB, intoxicated) Skin: Normal Color, Warm, Dry Head: Atraumatic, Normacephalic Eye(s): bilateral: PERRL Neck: Normal ROM, No Midline Cervical Tenderness, No Step Off Deformity, Supple Chest: Symmetrical, No Deformity Cardiovascular: Rhythm Regular Respiratory: Normal Breath Sounds, No Accessory Muscle Use Gastrointestinal/Abdominal: Soft Extremity: Normal ROM, No Deformity Neurological/Psych: No Normal Speech (slurred), Slow To Respond With Command, Other (Moving all extretmities) Gait: Unable To Assess ED Course And Treatment - Laboratory Results Result Diagrams: 11/15/17 14:22 11/15/17 14:22 Interpretation Of Abnormal: Elevated alcohol level ECG: Interpreted By Me, Viewed By Me ECG Rhythm: Sinus Rhythm, Nonspecific Changes ECG Interpretation: No Acute Changes Rate From EC O2 Sat by Pulse Oximetry: 98 Pulse Ox Interpretation: Normal - Radiology CXR: Viewed By Me, Read By Radiologist CXR Interpretation: Yes: No Acute Disease Progress - Interventions Interventions:: Observation, Intravenous fluid - Data Reviewed Data Reviewed: Lab, Diagnostic imaging, EKG, Old records - Patient Status Patient status: Partially improved - Continuity of Care Discussed patient case with:: Patient, ED Nurse Disposition - Disposition Disposition Time: 00:00 Condition: STABLE - Clinical Impression Clinical Impression: Alcohol intoxication Physician Patient Turnover Patient Signed Over To: Dorys Swartz Handoff Comments: to f/up propagation worker evaluation for detox admission.
--- NOTE | 2017-11-16 05:43 | PCM.BM ---
<Kavita Mae - Last Filed: 11/16/17 05:40> Treatment Plan Problems - Problems identified on initial assessmt Alcohol Dependence Date Initiated: 11/16/17 Time Initiated: 04:00 Assessment reference: NA Status: Active Treatment assets and liabiliti Patient Assests: ADL independent Patient Liabilities: substance abuse - Milieu Protocol Maintain good personal hygiene: daily Encourage regular showers, daily Remind patient to perform daily oral care, daily Assist patient to perform ADL's Maintain personal safety: every shift Educate patient to report safety concerns to staff, every shift Monitor environment for contraband/sharps Medication safety: Monitor for expected outcome, potential side effects: every shift, Assess barriers to learning: every shift, Assess readiness for medication education: every shift <Leah Weldon - Last Filed: 11/18/17 14:05> Family Contact Family involvement: No known Family/SO - Goals for Treatment Patient goals for treatment: COMPLETE DETOX AND RETURN TO THE [facility]. Discharge/Continuing Care - Education Needs Education Needs: Patient Medication, Patient Diagnosis/Disease Process, Patient Coping Skills, Patient Anger Management skills, Patient Placement options, Patient Community resources - Discharge Discharge Criteria: No longer exhibiting s/s of withdrawal, Reduction of target symptoms Discharge to:: [facility] - Treatment Team Participation Patient/Family/SO Statement: 11/18/17 14:04 "I W[facility]NA GO BACK TO [facility]". Discussed with Family/SO: No Was Patient/Family/SO present at Treatment Team Meeting: Yes
[2017-11-16] MEDS: Multiple Vitamins Tab PO SCH (10:06)
--- NOTE | 2017-11-16 13:59 | PCM.PSYCH ---
Initial Psychiatric Evaluation - Initial Psychiatric Evaluation Type of Admission: Voluntary Legal Status: Capacity Chief Complaint (in patient's own words): "I had alcohol drinking problem" History of Present Illness and Precipitating Events: this is a 47 year old male who was presented and admitted to the detox unit for alcohol withdrawal symptoms patient BAL level was 368 in the emergency room. Patient stated that he started drinking at the age of 16 or 17 he did drink 2-3 pints of hard called a daily basis he reported in the past he had one detox and diseases the second time he is admitted for the detox treatment reported and the past he was attending daily AA meetings on is her biggest problem for him. CAGE scenario was positive. Pt states he has to drink daily because when he tries to stop he shakes. Pt states he stays at [facility]. Pt denies SI/ HI or A/V hallucinations. Pt denies seizure history but reports a history of "black outs" last black out, unknown. social history: Pt states his plan is to gain employment in [place] but he needs detox first. Pt states his mother is in a residential in [place] so he will have to go back to visit her soon but does not wish to reside in [place]. Pt denies status. Pt's highest level of education is High School. Pt reports experiencing trauma during 08/03 when he worked in/near [employer]. patient is single and has 2 children's. Patient's both symptoms are living with their mother in [place]. Past medical his: Asthma Current Medications: Active Medications Generic Name Dose Route Start Last Admin Trade Name Freq PRN Reason Stop Dose Admin Chlordiazepoxide 25 mg 11/16/17 06:00 11/16/17 13:00 Librium PO 11/21/17 05:59 25 mg Q6H SHANEL Administration Taper Chlordiazepoxide 25 mg 11/16/17 00:39 11/16/17 10:06 Librium PO 25 mg Q4H PRN Administration Alcohol Withdrawal Clonidine HCl 0.1 mg 11/16/17 00:39 Catapres PO Q4H PRN Symptoms of alcohol withdrawl Folic Acid 1 mg 11/16/17 10:00 11/16/17 10:06 Folic Acid PO 1 mg DAILY SHANEL Administration Gabapentin 300 mg 11/16/17 10:00 11/16/17 10:06 Neurontin PO 300 mg BID SHANEL Administration Hydroxyzine HCl 50 mg 11/16/17 00:43 Atarax PO Q6H PRN Anxiety Ibuprofen 600 mg 11/16/17 00:43 Motrin Tab PO Q6H PRN Pain, moderate (4-7) Multivitamins 1 tab 11/16/17 10:00 11/16/17 10:06 Hexavitamin PO 1 tab DAILY SHANEL Administration Thiamine HCl 100 mg 11/16/17 10:00 11/16/17 10:06 Vitamin B1 Tab PO 100 mg DAILY SHANEL Administration Trazodone HCl 100 mg 11/16/17 00:39 Desyrel PO HS PRN Insomnia Past Psychiatric History - Past Psychiatric History Previous Treatment History: Inpatient Prior Psychiatric Treatment: one admission in the detox unit At [facility]: none known Explanation of prior treatment: patient reported he was compliant with treatment in the past History of Abuse: he denied sexual or physical abuse in the past History of ETOH/Drug Use: he reported he started using the cocaine and on and off. currently, he denied any illicit drugs use Pertinent Medical Hx (Current Medical&Sleep Prob, Allergies): Allergies Allergy/AdvReac Type Severity Reaction Status Date / Time No Known Allergies Allergy Verified 11/15/17 13:47 No Known Home Med 11/15/17 Review of Systems - Review of Systems All systems: reviewed and no additional remarkable complaints except (as per HPI ) Mental Status Examination - Personal Presentation Personal Presentation: Looks stated age, Dressed appropriate to season, No apparent handicaps - Affect Affect: Constricted - Motor Activity Motor Activity: Calm - Reliability in Providing Information Reliability in Providing Information: Good - Speech Speech: Organized - Mood Mood: Anxious - Formal Thought Process Formal Thought Process: No Impairment - Hallucinations/Delusions Hallucinations: Other (denied) - Obsessions/Compulsions Obsessions: No Compulsions: No - Cognitive Functions Orientation: Person, Place, Situation, Time Sensorium: Alert Attention/Concentration: Attentive Abstract Thinking: Odell Judgement: Intact, as evidence by: Good judgement, Intact, as evidence by: Insight regarding need for hospitalization Memory: Recent intact, as evidence by: Ability to recall events of the day, Remote intact, as evidenced by: Abilit to recall sig. life events - Risk Risk: Withdrawal - Strength & Assets Inventory Strength & Assets Inventory: Intelligence, Interests/hobbies, Spiritual affiliations, Cooperative - Limitations Limitations: Other (chronic alcohol use) DSM 5 DX - DSM 5 DSM 5 Diagnosis: alcohol use disorder severe, dependence, intoxication, withdrawal symptoms - Recommended/Plan of Treatment Treatment Recommendations and Plan of Treatment: Librium detox Gabapentin for augmentation As needed meds and vitamins Attend groups and activities DC for abstinence and CBT for relapse prevention Support and psychoeducation Consider and encourage MAT~ Refer to after care 33 min Projected ELOS: 5-6 days Discharge Plan and Discharge Criteria: completion of the detox As per mental health social worker - Smoking Cessation Smoking Cessation Initiated: Yes
[2017-11-17] MEDS: Multiple Vitamins Tab PO SCH (10:00)
--- NOTE | 2017-11-17 16:09 | PCM.PYCHPN ---
Psychiatric Progress Note - Psychiatric Progress Note Patient seen today, length of contact: 15 minutes Patient Chief Complaint: I'm feeling little better, but still I have withdrawal symptoms. Problems Identified/Issues Discussed: Patient seen, chart reviewed, case discussed with the staff. Issues related to illness and treatment were discussed with the patient. Reported compliant with treatment with no adverse affects. Reported feeling little better than before. Patient was awake alert oriented 3. Aftercare discussed with the patient. At the time of evaluation, patient had no delusions, no auditory or visual hallucinations, no suicidal ideations or homici Medical Problems: Asthma Diagnostic Results: Reviewed DSM 5 Symptoms Update: Improving with treatment Medication Change: No Medical Record Reviewed: Yes Mental Status Examination - Cognitive Function Orientation: Person, Place, Situation, Time Memory: Intact Attention: WNL Concentration: WNL Association: WNL Fund of Knowledge: [facility] Decription of patient's judgement and insights: Fair - Mood Mood: Anxious - Affect Affect: Other (Appropriate) - Speech Speech: Appropriate - Formal Thought Process Formal Thought Process: No Impairment Psychotic Thoughts and Behaviors: None - Suicidal Ideation Suicidal Ideation: No - Homicidal Ideation Homicidal Ideation: No Goal/Treatment Plan - Goal/Treatment Plan Need for Continued Stay: Remain at risks for inpatient hospitalization, Discharge may exacerbated symptoms, Severe functional impairment Progress Toward Problem(s) and Goals/Treatment Plan: Patient education Supportive therapy CBT for relapse prevention Motivational interview for abstinence Continue treatment as before Estimated Date of D/C: 11/21/17 - Smoking Cessation Smoking Cessation Initiated: No
--- NOTE | 2017-11-18 09:38 | CARD ---
APPROVED REPORT EKG Measurement Heart [id number] <Conclusion> Normal sinus rhythm Minimal voltage criteria for LVH, may be normal variant Borderline ECG
[2017-11-18] MEDS: Multiple Vitamins Tab PO SCH (09:50)
--- NOTE | 2017-11-18 15:53 | PCM.PYCHPN ---
Psychiatric Progress Note - Psychiatric Progress Note Patient seen today, length of contact: 15 minutes Patient Chief Complaint: "I have diarrhea and cold symptoms." Problems Identified/Issues Discussed: The pt is seen, chart reviewed, case discussed with staff. Patient stated he is feeling cold and diarrhea. Patient stated the medication is helping in the withdrawal symptom of alcohol including tremors dizziness etc. The pt is compliant with medications and reports no side-effects. Symptoms are improving but needs more time to stabilize. After care discussed, support and psychoeducation given. DSM 5 Symptoms Update: Alcohol use disorder severe, dependence, withdrawal symptoms Medication Change: Yes Medical Record Reviewed: Yes Mental Status Examination - Cognitive Function Orientation: Person, Place, Situation, Time Memory: Intact Attention: WNL Concentration: WNL Association: WN Fund of Knowledge: [facility] Decription of patient's judgement and insights: Insight was good, judgment was good - Mood Mood: Anxious - Affect Affect: Constricted - Speech Speech: Appropriate - Formal Thought Process Formal Thought Process: No Impairment Psychotic Thoughts and Behaviors: Denied - Suicidal Ideation Suicidal Ideation: No Plan: Denied intent or plan - Homicidal Ideation Homicidal Ideation: No Goal/Treatment Plan - Goal/Treatment Plan Need for Continued Stay: Remain at risks for inpatient hospitalization, Discharge may exacerbated symptoms, Severe functional impairment Progress Toward Problem(s) and Goals/Treatment Plan: Continue Librium detox Gabapentin for augmentation As needed meds and vitamins Attend groups and activities [place] for abstinence and CBT for relapse prevention Support and psychoeducation Consider and encourage MAT~ Refer to after care Estimated Date of D/C: 11/21/17 - Smoking Cessation Smoking Cessation Initiated: Yes
[2017-11-19] MEDS: Multiple Vitamins Tab PO SCH (10:01)
[2017-11-19] MEDS ORDERED: Influenza Vaccine 60 mcg/0.5 mL SYR (4YR UP) IM ONE (10:30)
--- NOTE | 2017-11-19 16:03 | PCM.PYCHPN ---
Psychiatric Progress Note - Psychiatric Progress Note Patient seen today, length of contact: 15 minutes Patient Chief Complaint: "I'm feeling better." Problems Identified/Issues Discussed: The pt is seen, chart reviewed, case discussed with staff. Patient reported improvement in withdrawal symptoms. Additionally,patient stated the medication is helping in the withdrawal symptom of alcohol including tremors dizziness etc. The pt is compliant with medications and reports no side-effects. Symptoms are improving but needs more time to stabilize. After care discussed, support and psychoeducation given. Medical Problems: patient reported he was compliant with treatment in the past DSM 5 Symptoms Update: Alcohol use disorder severe, dependence, withdrawal symptom Alcohol intoxication without complication Medication Change: Yes Medical Record Reviewed: Yes Mental Status Examination - Cognitive Function Orientation: Person, Place, Situation, Time Memory: Intact Attention: WNL Concentration: WNL Association: WNL Fund of Knowledge: [facility] Decription of patient's judgement and insights: Insight was good, judgment was good - Mood Mood: Anxious - Affect Affect: Constricted - Speech Speech: Appropriate - Formal Thought Process Formal Thought Process: No Impairment Psychotic Thoughts and Behaviors: Denied - Suicidal Ideation Suicidal Ideation: No Plan: Denied - Homicidal Ideation Homicidal Ideation: No Plan: Denied Goal/Treatment Plan - Goal/Treatment Plan Need for Continued Stay: Remain at risks for inpatient hospitalization, Discharge may exacerbated symptoms, Severe functional impairment Progress Toward Problem(s) and Goals/Treatment Plan: Continue Librium detox Gabapentin for augmentation As needed meds and vitamins Attend groups and activities [place] for abstinence and CBT for relapse prevention Support and psychoeducation Consider and encourage MAT~ Refer to after care Estimated Date of D/C: 11/21/17 - Smoking Cessation Smoking Cessation Initiated: Yes
[2017-11-19] MEDS: guaiFENesin DM 200 mg-20 mg/10 ml UD PO PRN (21:31)
[2017-11-20 06:12] VITALS: O2SAT 98
[2017-11-20 08:17] VITALS: BP 110/75; PULSE 86; RESP 19; TEMP 97.7
[2017-11-20] MEDS: guaiFENesin DM 200 mg-20 mg/10 ml UD PO PRN (09:33)
[2017-11-20] MEDS: Multiple Vitamins Tab PO SCH (09:33)
--- NOTE | 2017-11-20 10:23 | PCM.PYCHDC ---
Mental Status Examination - Mental Status Examination Orientation: Person, Place, Situation, Time Memory: Intact Mood: Neutral Affect: Broad Speech: Appropriate Attention: WNL Concentration: WNL Association: WNL Fund of Knowledge: WNL Formal Thought Process: No Impairment Description of patient's judgement and insight: Insight was good, judgment was good Psychotic Thoughts and Behaviors: Denied Suicidal Ideation: No Current Homicidal Ideation?: No Plan: denied Discharge Summary - Discharge Note Reason for Hospitalization: this is a 47 year old male who was presented and admitted to the detox unit for alcohol withdrawal symptoms patient BAL level was 368 in the emergency room. Patient stated that he started drinking at the age of 16 or 17 he did drink 2-3 pints of hard called a daily basis he reported in the past he had one detox and diseases the second time he is admitted for the detox treatment reported and the past he was attending daily AA meetings on is her biggest problem for him. CAGE scenario was positive. Pt states he has to drink daily because when he tries to stop he shakes. Pt states he stays at [facility]. Pt denies SI/ HI or A/V hallucinations. Pt denies seizure history but reports a history of "black outs" last black out, unknown. social history: Pt states his plan is to gain employment in [place] but he needs detox first. Pt states his mother is in a penitentiary in [place] so he will have to go back to visit her soon but does not wish to reside in [place]. Pt denies status. Pt's highest level of education is High School. Pt reports experiencing trauma during 08/03 when he worked in/near [employer]. patient is single and has 2 children's. Patient's both symptoms are living with their mother in [place]. Past medical his: Asthma Laboratory Data: please see lab results Consultations:: List each consultation separately and include: 1. Reason for request. 2. Findings. 3. Follow-up Consultations: None Summary of Hospital Course include:: 1. Description of specific treatment plan utilized for patients during their course of treatmen. 2. Summarize the time- course for resolution of acute symptoms and/or regressed behaviors. 3. Describe issues identified and worked on during hospitalization. 4. Describe medication utilized. 5. Describe medical problems identified and treated. 6. Reassessment of suicide risk Summary of Hospital Course: The pt was admitted and started on detox treatment with psychotherapy, support, psychoeducation and medications. CA and CBT techniques were used. The pt was compliant with the treatment. The pt attended groups and activities, as well as milieu therapy. All the risks and benefits of medications were discussed and the patient understood and agreed. The pt improved with the treatment. Pt appreciate the treatment and care which was provided to him. At the time of d/c pt denied any depresive symptoms, manic symptoms. He denied any SI, HI, intent or plan. Pt denied any perceptual disturbances. He had behavioral issues. Psychoeducation was provided to the pt to be compliant with the medication, treatment plan and f/u plan after the discharge. After care discussed with the patient. - Diagnosis (1) Alcohol dependence Status: Resolved (2) Alcohol intoxication Status: Resolved (3) Alcohol use disorder, severe, dependence Status: Resolved - Final Diagnosis (DSM 5) Condition upon Discharge: STABLE Disposition: HOME/ ROUTINE Follow-up Treatment Plan: Continue below medications after discharge. Follow after care plan as discussed. Use relapse prevention copying skills Return to ER or call 911 if suicidal, homicidal or symptoms relapse. Stay away from stress, alcohol and drugs. See primary doctor once a year. Time spend 28 minutes Prescriptions/Medication Reconciliation: Gabapentin [Neurontin] 300 mg PO BID 30 Days #60 cap Multivitamins [Hexavitamin] 1 tab PO DAILY 30 Days #30 tab traZODone [Desyrel] 100 mg PO HS PRN 30 Days #30 tab PRN Reason: Insomnia - Smoking Cessation Smoking Cessation Medication prescribed: Yes - Antipsychotic Medications Pt discharged on 2 or more routine antipsychotic medications: No
== END 2017-11-20 11:30 | disposition home or self-care (01) | DRG 751 ==
LOC: C.ER 13:34 → C.7D 11-16 00:22
PROVIDERS: ADMIT Psychiatry & Neurology Psychiatry; ATTEND Psychiatry & Neurology Psychiatry
PROC: HZ2ZZZZ Detoxification Services for Substance Abuse Treatment (ICD-10-PCS; principal; 2017-11-16)
DX: F10.239 Alcohol dependence with withdrawal, unspecified (principal); J45.909 Unspecified asthma, uncomplicated; Z87.891 Personal history of nicotine dependence

== ENCOUNTER 2017-11-24 20:07 | Emergency (ER) | payer OTHER ==
--- NOTE | 2017-11-24 20:53 | C.PDOC ---
History Of Present Illness Patient presents to the ER via EMS after being found intoxicated in public. Patient is complaining of pain to his right arm; denies weakness, numbness, or other injuries. Time Seen by Provider: 11/24/17 20:52 Chief Complaint (Nursing): Substance Abuse History Per: Patient History/Exam Limitations: no limitations Onset/Duration Of Symptoms: Hrs Current Symptoms Are (Timing): Still Present Suicide/Self Injury Attempted (Context): None Modifying Factor(s): Alcohol Severity: Mild Pain Scale Rating Of: 3 Associated Symptoms: denies: Depression, Suicidal Thoughts, Suicidal Plan Involuntary Hold By: None Recent travel outside of the [place]: No Past Medical History Reviewed: Historical Data, Nursing Documentation, Vital Signs Vital Signs: Last Vital Signs Temp 98.2 F 11/25/17 05:31 Pulse 86 11/25/17 05:31 Resp 17 11/25/17 05:31 BP 128/84 11/25/17 05:31 Pulse Ox 98 11/25/17 05:31 - Medical History PMH: Asthma, Depression - [facility] Procedures DETOXIFICATION SERVICES FOR SUBSTANCE ABUSE TREATMENT (11/16/17) Family History: States: No Known Family Hx - Social History Hx Tobacco Use: Yes Hx Alcohol Use: Yes Hx Substance Use: Yes - Immunization History Hx Tetanus Toxoid Vaccination: No Hx Influenza Vaccination: No Hx Pneumococcal Vaccination: No Review Of Systems Constitutional: Negative for: Fever, Chills Gastrointestinal: Negative for: Nausea, Vomiting, Diarrhea Musculoskeletal: Positive for: Arm Pain (right) Neurological: Negative for: Weakness, Numbness Physical Exam - Physical Exam Appears: Non-toxic, No Acute Distress, Other (ETOH on breath, no signs of trauma ) Skin: Warm, Dry Head: Normacephalic Oral Mucosa: Moist Chest: Symmetrical, No Tenderness Cardiovascular: Rhythm Regular Respiratory: No Rales, No Rhonchi, No Wheezing Gastrointestinal/Abdominal: Soft, No Tenderness Extremity: No Tenderness, Capillary Refill (<2 seconds), No Deformity, No Swelling, Other (ROM of all extremities intact) Neurological/Psych: Oriented x3 ED Course And Treatment O2 Sat by Pulse Oximetry: 98 (room air) Pulse Ox Interpretation: Normal Reevaluation Time: 05:36 Reassessment Condition: Improved Disposition Counseled Patient/Family Regarding: Studies Performed, Diagnosis, Need For Followup - Disposition Referrals: [facility] [Outside] Disposition: HOME/ ROUTINE Disposition Time: 20:52 Condition: FAIR Instructions: Alcohol Intoxication (DC) Forms: [employer] (Belarusian) - Clinical Impression Clinical Impression: Alcohol abuse, Alcohol intoxication, Arm pain - Scribe Statement The provider has reviewed the documentation as recorded by the Scribshona Ivy All medical record entries made by the Scribe were at my direction and personally dictated by me. I have reviewed the chart and agree that the record accurately reflects my personal performance of the history, physical exam, medical decision making, and the department course for this patient. I have also personally directed, reviewed, and agree with the discharge instructions and disposition.
[2017-11-25 05:33] VITALS: BP 128/84; PULSE 86; RESP 17; TEMP 98.2; O2SAT 98
== END 2017-11-25 06:15 | disposition home or self-care (01) ==
LOC: C.ER 20:07
DX: F10.129 Alcohol abuse with intoxication, unspecified (principal); Y90.9 Presence of alcohol in blood, level not specified; M79.601 Pain in right arm

== ENCOUNTER 2017-12-15 11:02 | Emergency (ER) | payer OTHER, SELFPAY ==
[2017-12-15 11:24] VITALS: RESP 20
--- NOTE | 2017-12-15 12:18 | C.PDOC ---
History Of Present Illness 47 y/o male brought to ED by EMS for public ETOH intoxication. At ED patient has unsteady gait and states "I need to sleep". No other complaints at this time. Time Seen by Provider: 12/15/17 11:13 Chief Complaint (Nursing): Substance Abuse History Per: Patient History/Exam Limitations: no limitations Onset/Duration Of Symptoms: Hrs Current Symptoms Are (Timing): Still Present Suicide/Self Injury Attempted (Context): None Modifying Factor(s): Alcohol Past Medical History Reviewed: Historical Data, Nursing Documentation, Vital Signs Vital Signs: Last Vital Signs Temp 98.3 F 12/15/17 17:00 Pulse 89 12/15/17 17:00 Resp 20 12/15/17 17:00 BP 127/86 12/15/17 17:00 Pulse Ox 98 12/15/17 17:05 - Medical History PMH: Asthma, Depression Surgical History: No Surg Hx - [facility] Procedures DETOXIFICATION SERVICES FOR SUBSTANCE ABUSE TREATMENT (11/16/17) Family History: States: No Known Family Hx - Social History Hx Tobacco Use: Yes Hx Alcohol Use: Yes Hx Substance Use: Yes - Immunization History Hx Tetanus Toxoid Vaccination: No Hx Influenza Vaccination: No Hx Pneumococcal Vaccination: No Review Of Systems Review Of Systems: ROS cannot be obtained secondary to pt's inabilty to answer questions. (Patient in an acute ETOH intoxication) Physical Exam - Physical Exam Appears: Non-toxic, No Acute Distress, Unkempt, Other (ETOH on breath, no evidence of trauma) Skin: Warm, Dry, No Rash Head: Atraumatic, Normacephalic Eye(s): bilateral: Normal Inspection, EOMI Nose: Normal Oral Mucosa: Moist Neck: Normal ROM, Supple Chest: Symmetrical Cardiovascular: Rhythm Regular Respiratory: Normal Breath Sounds, No Accessory Muscle Use, No Rales, No Rhonchi , No Wheezing Gastrointestinal/Abdominal: Soft, No Tenderness, No Guarding, No Rebound Extremity: Normal ROM, Capillary Refill (<2 seconds) Neurological/Psych: Oriented x3 ED Course And Treatment - Laboratory Results Result Diagrams: 12/15/17 14:47 12/15/17 14:47 O2 Sat by Pulse Oximetry: 98 (RA) Pulse Ox Interpretation: Normal Progress Note: On re evaluation patient ate sandwich and is requesting to go home with no further complaints. Denies trauma. No pain. Upon discharge patient has a steady gait . 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 - Scribe Statement The provider has reviewed the documentation as recorded by the Ronnyibshona Guzman All medical record entries made by the [facility] were at my direction and personally dictated by me. I have reviewed the chart and agree that the record accurately reflects my personal performance of the history, physical exam, medical decision making, and the department course for this patient. I have also personally directed, reviewed, and agree with the discharge instructions and disposition.
[2017-12-15 14:53] LABS: BASO # 0.1 K/uL (0.0-0.2); EOS # 0.1 K/uL (0.0-0.7); EOS % 1.3 % (0.0-4.0); HEMOGLOBIN 13.9 g/dL (12.0-18.0); LYMPH # 1.9 K/uL (1.0-4.3); LYMPH % 35.6 % (20.0-40.0); MEAN CELL VOLUME 100.8 fL (80.0-94.0); MEAN CORPUSCULAR HEMOGLOBIN 34.1 pg (27.0-31.0); MEAN CORPUSCULAR HGB CONC 33.8 g/dL (33.0-37.0); MEAN PLATELET VOLUME 7.3 fL (7.2-11.7); MONO # 0.5 K/uL (0.0-0.8); MONO % 9.3 % (0.0-10.0); NEUT # 2.9 K/uL (1.8-7.0); NEUT % 52.8 % (50.0-75.0); NRBC % 0.1 % (0.0-2.0); RBC 4.07 Mil/uL (4.40-5.90); RED CELL DISTRIBUTION WIDTH 13.4 % (11.5-14.5); WHITE BLOOD COUNT 5.4 K/uL (4.8-10.8)
[2017-12-15 15:37] LABS: ALB/GLOB RATIO 1.3 (1.0-2.1); ALBUMIN 4.4 g/dL (3.5-5.0); ALT/SGPT 33 U/L (21-72); AST/SGOT 54 U/L (17-59); BLOOD UREA NITROGEN 6 mg/dL (9-20); GFR AFRICAN-AMERICAN > 60; GFR NON-AFRICAN AMERICAN > 60
[2017-12-15 17:01] VITALS: BP 127/86; PULSE 89; TEMP 98.3
[2017-12-15 17:05] VITALS: O2SAT 98
== END 2017-12-15 17:00 | disposition home or self-care (01) ==
LOC: C.ER 11:02
DX: F10.129 Alcohol abuse with intoxication, unspecified (principal); Y90.9 Presence of alcohol in blood, level not specified

== ENCOUNTER 2017-12-31 14:32 | Emergency (ER) | payer SELFPAY ==
[2017-12-31 15:21] VITALS: BP 117/80; PULSE 75; RESP 20; TEMP 97.8; O2SAT 97
--- NOTE | 2017-12-31 18:33 | C.PDOC ---
History Of Present Illness 47 year old male is brought to the ED by ambulance for evaluation of public alcohol intoxication for an unknown duration. Patient states he sustained a fall to the ground and was unable to get back up. Patient states he was due to report at [facility] at 1600 due to curfew. He was evaluated at 1710. Patient denies head injury, LOC and has no other complaints at this time. Time Seen by Provider: 12/31/17 17:08 Chief Complaint (Nursing): Substance Abuse History Per: Patient, EMS History/Exam Limitations: intoxication Onset/Duration Of Symptoms: Hrs Current Symptoms Are (Timing): Still Present Suicide/Self Injury Attempted (Context): None Modifying Factor(s): Alcohol Associated Symptoms: denies: Suicidal Thoughts, Suicidal Plan Involuntary Hold By: None Recent travel outside of the [place]: No Additional History Per: EMS Past Medical History Reviewed: Historical Data, Nursing Documentation, Vital Signs Vital Signs: Last Vital Signs Temp 97.8 F 12/31/17 15:18 Pulse 75 12/31/17 15:18 Resp 20 12/31/17 15:18 BP 117/80 12/31/17 15:18 Pulse Ox 97 12/31/17 19:53 - Medical History PMH: Asthma, Depression Denies: HIV, HTN, Chronic Kidney Disease, Seizures, Sexually Transmitted Disease Surgical History: No Surg Hx - [facility] Procedures DETOXIFICATION SERVICES FOR SUBSTANCE ABUSE TREATMENT (11/16/17) Family History: States: Unknown Family Hx - Social History Hx Tobacco Use: Yes Hx Alcohol Use: Yes Hx Substance Use: Yes - Immunization History Hx Tetanus Toxoid Vaccination: No Hx Influenza Vaccination: No Hx Pneumococcal Vaccination: No Review Of Systems Psych: Positive for: Other (EtOH intoxicated ) Physical Exam - Physical Exam Appears: No Acute Distress Skin: Normal Color, Warm, Dry Head: Atraumatic, Normacephalic Eye(s): bilateral: Normal Inspection Oral Mucosa: Moist, Other (alcohol on breath ) Neck: Supple Chest: Symmetrical, No Deformity, No Tenderness Cardiovascular: Rhythm Regular, No Murmur Respiratory: Normal Breath Sounds, No Rales, No Rhonchi, No Wheezing Extremity: Normal ROM, Capillary Refill (less than 2 seconds ) Neurological/Psych: Other (awake, alert and arousable to touch and verbal stimuli ) Gait: Steady ED Course And Treatment O2 Sat by Pulse Oximetry: 97 (on RA) Pulse Ox Interpretation: Normal Medical Decision Making Medical Decision Making: kartika claims he fell and can't walk, inital eval @ 17:10 but pt has to [facility] by 1600 so needs a note/d/c instructions nimble quick gait without pain on re-eval Malingering. Disposition Doctor Will See Patient In The: Office Counseled Patient/Family Regarding: Studies Performed, Diagnosis - Disposition Referrals: Alcoholics Anonymous [Outside] [facility] [Outside] [facility] [Outside] [facility] [Outside] Disposition: HOME/ ROUTINE Disposition Time: 18:33 Condition: GOOD Additional Instructions: seek AA Seek outpatient psych resources as appropriate. Instructions: Abuse of Alcohol (ED) Forms: [employer] (Citizen Of [place]) - Clinical Impression Clinical Impression: Alcohol abuse, Malingering - Scribe Statement The provider has reviewed the documentation as recorded by the Scribe (Jessica Miller) Provider Attestation: All medical record entries made by the Scribe were at my direction and personally dictated by me. I have reviewed the chart and agree that the record accurately reflects my personal performance of the history, physical exam, medical decision making, and the department course for this patient. I have also personally directed, reviewed, and agree with the discharge instructions and disposition.
== END 2017-12-31 18:36 | disposition home or self-care (01) ==
LOC: C.ER 14:32
DX: F10.129 Alcohol abuse with intoxication, unspecified (principal); Z76.5 Malingerer [conscious simulation]; Z87.891 Personal history of nicotine dependence

== ENCOUNTER 2018-01-15 16:58 | Emergency (ER) | payer OTHER, SELFPAY ==
[2018-01-15 17:24] VITALS: RESP 18; TEMP 98; O2SAT 97
--- NOTE | 2018-01-15 21:00 | C.PDOC ---
History Of Present Illness Patient is a 47 y/o male who presents to the ED BIBA for public intoxication. Patient has many prior evaluations, 12/31/17 being most recent. Patient is disheveled and threatening staff in ED, claiming his money was stolen. Patient has no other physical complaints at this time. Time Seen by Provider: 01/15/18 20:55 Chief Complaint (Nursing): Substance Abuse History Per: Patient History/Exam Limitations: no limitations Onset/Duration Of Symptoms: Hrs Current Symptoms Are (Timing): Still Present Suicide/Self Injury Attempted (Context): None Modifying Factor(s): Alcohol Recent travel outside of the [place]: No Past Medical History Reviewed: Historical Data, Nursing Documentation, Vital Signs Vital Signs: Last Vital Signs Temp 98 F 01/15/18 17:22 Pulse 77 01/15/18 17:22 Resp 18 01/15/18 17:22 BP 106/70 01/15/18 17:22 Pulse Ox 97 01/15/18 21:05 - Medical History PMH: Asthma, Depression Denies: HIV, HTN, Chronic Kidney Disease, Seizures, Sexually Transmitted Disease Surgical History: No Surg Hx - [facility] Procedures DETOXIFICATION SERVICES FOR SUBSTANCE ABUSE TREATMENT (11/16/17) Family History: States: No Known Family Hx - Social History Hx Tobacco Use: Yes Hx Alcohol Use: Yes Hx Substance Use: Yes - Immunization History Hx Tetanus Toxoid Vaccination: No Hx Influenza Vaccination: No Hx Pneumococcal Vaccination: No Review Of Systems Neurological: Positive for: Other (EtOH intoxication) Physical Exam - Physical Exam Appears: No Acute Distress, Agitated, Other (disheveled, foul-smelling, EtOH on breath) Skin: Normal Color, Warm, Dry Head: Atraumatic, Normacephalic Oral Mucosa: Moist Chest: Symmetrical Cardiovascular: Rhythm Regular, No Murmur Respiratory: Decreased Breath Sounds, No Rales, No Rhonchi, No Wheezing Gastrointestinal/Abdominal: Soft, No Tenderness Gait: Steady ED Course And Treatment O2 Sat by Pulse Oximetry: 97 Medical Decision Making Medical Decision Making: ALCOHOL intox, pt agressive with staff and Security Wants Police to intervene because he lost his money pt displays a police summons he received today. Disposition Doctor Will See Patient In The: Office Counseled Patient/Family Regarding: Studies Performed, Diagnosis - Disposition Referrals: Alcoholics Anonymous [Outside] [facility] [Outside] [facility] [Outside] [facility] [Outside] Disposition: HOME/ ROUTINE Disposition Time: 21:00 Condition: GOOD Additional Instructions: seek the resources you require to avoid substance abuse PT IS MEDICALLY CLEARED FOR INCARCERATION NEEDED. Instructions: Alcohol Abuse and Alcoholism (DC) Forms: [employer] (Monegasque) - Clinical Impression Clinical Impression: Alcohol abuse - Scribe Statement The provider has reviewed the documentation as recorded by the Scribe Mine [place] All medical record entries made by the Scribe were at my direction and personally dictated by me. I have reviewed the chart and agree that the record accurately reflects my personal performance of the history, physical exam, medical decision making, and the department course for this patient. I have also personally directed, reviewed, and agree with the discharge instructions and disposition.
[2018-01-15 21:15] VITALS: BP 107/64; PULSE 76
== END 2018-01-15 21:27 | disposition home or self-care (01) ==
LOC: C.ER 16:58
DX: F10.10 Alcohol abuse, uncomplicated (principal); Y90.9 Presence of alcohol in blood, level not specified

== ENCOUNTER 2018-02-07 18:26 | Emergency (ER) | payer OTHER ==
[2018-02-07 18:46] VITALS: BMI 22.9
--- NOTE | 2018-02-07 19:16 | C.PDOC ---
History Of Present Illness <Cody Romero - Last Filed: 02/07/18 23:42> <Xavier Link E - Last Filed: 02/08/18 05:29> 47 year old male is brought to the ED by EMS after being found outside intoxicated. Per EMS patient was found outside a care home and was not allowed entrace due to being intoxicated. Patient admits to drinking today. Patient denies SI/HI, hallucinations, fever, chills, nausea, vomit, diarrhea. (Cody Romero) History Per: Patient, EMS History/Exam Limitations: intoxication Onset/Duration Of Symptoms: Hrs Current Symptoms Are (Timing): Still Present Suicide/Self Injury Attempted (Context): None Modifying Factor(s): Alcohol Associated Symptoms: denies: Depression, Suicidal Thoughts, Suicidal Plan Recent travel outside of the [place]: No Additional History Per: Patient, EMS <Cody Romero - Last Filed: 02/07/18 23:42> <Xavier Link E - Last Filed: 02/08/18 05:29> Time Seen by Provider: 02/07/18 18:36 Chief Complaint (Nursing): Substance Abuse Past Medical History Reviewed: Historical Data, Nursing Documentation, Vital Signs - Medical History PMH: Asthma, Depression Denies: HIV, HTN, Chronic Kidney Disease, Seizures, Sexually Transmitted Disease Surgical History: No Surg Hx Family History: States: Unknown Family Hx - Social History Hx Tobacco Use: Yes Hx Alcohol Use: Yes Hx Substance Use: Yes - Immunization History Hx Tetanus Toxoid Vaccination: No Hx Influenza Vaccination: No Hx Pneumococcal Vaccination: No <Cody Romero - Last Filed: 02/07/18 23:42> Vital Signs: Last Vital Signs Temp 98.4 F 02/08/18 03:14 Pulse 78 02/08/18 03:14 Resp 18 02/08/18 03:14 BP 109/66 02/08/18 03:14 Pulse Ox 97 02/08/18 03:14 - [facility] DETOXIFICATION SERVICES FOR SUBSTANCE ABUSE TREATMENT (11/16/17) Review Of Systems Except As Marked, All Systems Reviewed And Found Negative. Psych: Negative for: Depression, Suicidal ideation <Cody Romero - Last Filed: 02/07/18 23:42> Physical Exam - Physical Exam Appears: Non-toxic, No Acute Distress Skin: Normal Color, Warm, Dry Head: Atraumatic, Normacephalic Nose: No Discharge Oral Mucosa: Moist Neck: Normal ROM, Supple Chest: Symmetrical Cardiovascular: Rhythm Regular, No Murmur Respiratory: Normal Breath Sounds, No Rales, No Rhonchi, No Wheezing Gastrointestinal/Abdominal: Soft, No Tenderness, No Guarding, No Rebound Extremity: Normal ROM, No Tenderness, No Swelling Neurological/Psych: Oriented x3 <Cody Romero - Last Filed: 02/07/18 23:42> ED Course And Treatment O2 Sat by Pulse Oximetry: 96 (On RA) Pulse Ox Interpretation: Normal <Cody Romero - Last Filed: 02/07/18 23:42> Progress Note: Pt is now clinically sober. AAOx3. Steady gait. Reevaluation Time: 05:27 Reassessment Condition: Improved <Xavier Link E - Last Filed: 02/08/18 05:29> Medical Decision Making <Cody Romero - Last Filed: 02/07/18 23:42> <Xavier Link E - Last Filed: 02/08/18 05:29> Medical Decision Makin:27 - Patient appears to be in no acute distress at this time. 21:38 - Patient appears to be in no acute distress 1130: pt made request for detox. advised no beds avail. seen sleeping in nad. observed eating sandwich in nad. (Cody Romero) Disposition <Cody Romero - Last Filed: 02/07/18 23:42> Counseled Patient/Family Regarding: Diagnosis, Need For Followup - Disposition Disposition Time: 05:28 <Xavier Link - Last Filed: 02/08/18 05:29> - Disposition Referrals: [facility] [Outside] Disposition: HOME/ ROUTINE Condition: IMPROVED Additional Instructions: Avoid alcohol. Follow up with your doctor or in the clinic. Return to the ER if you develop worsening of symptoms or if you have any other concerns. Instructions: Alcohol Abuse and Alcoholism (DC) - Clinical Impression Clinical Impression: Alcohol abuse - Scribe Statement The provider has reviewed the documentation as recorded by the Scribe <Cody Romero - Last Filed: 02/07/18 23:42> <Xavier Link E - Last Filed: 02/08/18 05:29> - Scribe Statement Freedom Campbell All medical record entries made by the Scribe were at my direction and personally dictated by me. I have reviewed the chart and agree that the record accurately reflects my personal performance of the history, physical exam, medical decision making, and the department course for this patient. I have also personally directed, reviewed, and agree with the discharge instructions and disposition. (Cody Romero)
[2018-02-08 05:30] VITALS: BP 135/78; PULSE 72; RESP 19; TEMP 98.3; O2SAT 96
== END 2018-02-08 06:03 | disposition home or self-care (01) ==
LOC: C.ER 18:26
DX: F10.10 Alcohol abuse, uncomplicated (principal); Y90.9 Presence of alcohol in blood, level not specified

== ENCOUNTER 2018-02-09 11:54 | Inpatient (IN) | payer MEDICAID, OTHER ==
[2018-02-09 11:55] VITALS: BMI 22.9
--- NOTE | 2018-02-09 13:55 | C.PDOC ---
History Of Present Illness Patient is a 47 year old male with past medical history of asthma, depression and alcohol abuse, who presents to the ED with complaints of worsening symptoms of alcohol withdrawal. Patient was last here in the ED on 02/07/18 after he was found outside intoxicated and was not allowed back into the long term. During today' s visit, patient was sent to the ED from the [facility] after he was noted to have tremulous. Patient admits to cough, runny nose, subjective fever, and diarrhea but denies chest pain, palpitations, SOB, nausea , vomiting. Furthermore, patient admits that he "passed out" after drinking on Thursday. Time Seen by Provider: 02/09/18 13:27 Chief Complaint (Nursing): Substance Abuse History Per: Patient History/Exam Limitations: no limitations Onset/Duration Of Symptoms: Days Current Symptoms Are (Timing): Still Present Severity: Moderate Location: Chest discomfort with cough Recent travel outside of the [facility]: No Additional History Per: Patient Past Medical History Vital Signs: Last Vital Signs Temp 98.2 F 02/09/18 15:02 Pulse 79 02/09/18 15:02 Resp 18 02/09/18 15:02 BP 156/97 H 02/09/18 15:02 Pulse Ox 99 02/09/18 15:07 - Medical History PMH: Asthma, Depression, Seizures Denies: HIV, HTN, Chronic Kidney Disease, Sexually Transmitted Disease - [facility] Procedures DETOXIFICATION SERVICES FOR SUBSTANCE ABUSE TREATMENT (11/16/17) Family History: States: Unknown Family Hx - Social History Hx Tobacco Use: Yes Hx Alcohol Use: Yes Hx Substance Use: Yes - Immunization History Hx Tetanus Toxoid Vaccination: No Hx Influenza Vaccination: No Hx Pneumococcal Vaccination: No Review Of Systems Constitutional: Positive for: Fever, Sweats. Negative for: Chills Eyes: Negative for: Pain, Vision Change ENT: Negative for: Ear Pain, Ear Discharge, Nose Congestion Cardiovascular: Positive for: Other (Chest discomfort with cough ) Respiratory: Positive for: Cough. Negative for: Shortness of Breath, Hemoptysis , SOB with Excertion, Pleuritic Pain, Sputum, Wheezing Gastrointestinal: Positive for: Diarrhea. Negative for: Nausea, Vomiting, Abdominal Pain, Constipation, Melena, Rectal Pain Neurological: Positive for: Weakness Psych: Positive for: Depression Physical Exam - Physical Exam Appears: No Acute Distress Skin: Normal Color Head: Atraumatic, Normacephalic Eye(s): bilateral: PERRL, EOMI Lips: Normal Appearing Cardiovascular: Rhythm Regular, No Murmur Respiratory: Normal Breath Sounds, No Decreased Breath Sounds, No Accessory Muscle Use, No Rales, No Stridor, No Wheezing, No Plerual Rub Gastrointestinal/Abdominal: Normal Exam, Bowel Sounds, Soft, No Tenderness, No Organomegaly, No Mass, No Rebound, No Hernia Extremity: Normal ROM, No Tenderness, No Calf Tenderness Neurological/Psych: Oriented x3, Normal Speech ED Course And Treatment - Laboratory Results Result Diagrams: 02/09/18 14:29 02/09/18 14:29 O2 Sat by Pulse Oximetry: 99 - Radiology CXR: Read By Radiologist CXR Interpretation: Yes: No Acute Disease Medical Decision Making Medical Decision Making: Admit to inpatient detox Case discussed with crisis team, who discussed with admitting physician, Dr. Moura Disposition Discussed With : Tutu Moura (Discussed with Dr. Moura as per Crisis team ) Doctor Will See Patient In The: ED - Disposition Disposition: HOSPITALIZED Disposition Time: 15:44 Condition: FAIR Forms: [facility] (Malaysian) - Clinical Impression Clinical Impression: Alcohol abuse
--- NOTE | 2018-02-09 14:21 | RAD ---
HISTORY: COMPARISON: 11/15/2017 TECHNIQUE: Chest PA and lateral FINDINGS: LINES AND TUBES: None. LUNG AND PLEURA: The lungs are well inflated. There is bibasilar atelectasis. No focal consolidation. HEART AND MEDIASTINUM: The heart is not enlarged. The hilar and mediastinal contours are within normal limits. SKELETAL STRUCTURES: The bony structures are within normal limits for the patient's age. VISUALIZED UPPER ABDOMEN: Normal. OTHER FINDINGS: None. IMPRESSION: No active pulmonary disease.
[2018-02-09 14:34] LABS: BASO % 0.7 % (0.0-2.0); EOS % 0.7 % (0.0-4.0); HEMOGLOBIN 13.3 g/dL (12.0-18.0); LYMPH % 21.4 % (20.0-40.0); MEAN CELL VOLUME 101.4 fL (80.0-94.0); MEAN CORPUSCULAR HEMOGLOBIN 34.1 pg (27.0-31.0); MEAN CORPUSCULAR HGB CONC 33.6 g/dL (33.0-37.0); MEAN PLATELET VOLUME 7.6 fL (7.2-11.7); MONO # 0.4 K/uL (0.0-0.8); MONO % 8.7 % (0.0-10.0); NEUT # 3.1 K/uL (1.8-7.0); NEUT % 68.5 % (50.0-75.0); NRBC % 0.1 % (0.0-2.0); RBC 3.91 Mil/uL (4.40-5.90); RED CELL DISTRIBUTION WIDTH 14.5 % (11.5-14.5); WHITE BLOOD COUNT 4.6 K/uL (4.8-10.8)
[2018-02-09 14:50] LABS: ALB/GLOB RATIO 1.2 (1.0-2.1); ALBUMIN 4.5 g/dL (3.5-5.0); ALT/SGPT 40 U/L (21-72); AST/SGOT 74 U/L (17-59); BLOOD UREA NITROGEN 9 mg/dL (9-20); CALCIUM 8.8 mg/dl (8.6-10.4); GFR AFRICAN-AMERICAN > 60; GFR NON-AFRICAN AMERICAN > 60
[2018-02-09 15:10] LABS: BARBITURATES, UR NEGATIVE (NEGATIVE); BENZODIAZEPINES, UR NEGATIVE (NEGATIVE); OPIATES, UR NEGATIVE (NEGATIVE); PHENCYCLIDINE, UR NEGATIVE (NEGATIVE)
--- NOTE | 2018-02-09 19:07 | PCM.BM ---
Treatment Plan Problems - Problems identified on initial assessmt Potential for alcohol withdrawal Date Initiated: 02/09/18 Time Initiated: 19:06 Assessment reference: NA Status: Active Treatment assets and liabiliti Patient Assests: ADL independent, negotiates basic needs, cognitively intact Patient Liabilities: substance abuse (ETOH) - Milieu Protocol Maintain good personal hygiene: daily Encourage regular showers, daily Remind patient to perform daily oral care, daily Assist patient to perform ADL's Conduct patient checks and document Observation sheet: Q15 minutes Maintain personal safety: every shift Educate patient to report safety concerns to staff, every shift Monitor environment for contraband/sharps Medication safety: Monitor for expected outcome, potential side effects: every shift, Assess barriers to learning: every shift, Assess readiness for medication education: every shift
[2018-02-10] MEDS: Multiple Vitamins Tab PO SCH (11:06)
[2018-02-10] MEDS ORDERED: guaiFENesin 100 mg/5 ml Syrup UD PO PRN (12:00)
--- NOTE | 2018-02-10 13:12 | PCM.PSYCH ---
Initial Psychiatric Evaluation - Initial Psychiatric Evaluation Type of Admission: Voluntary Legal Status: Capacity Chief Complaint (in patient's own words): "I have etoh withdrawal symptoms" History of Present Illness and Precipitating Events: This is a 47 year old male who was presented and admitted to the detox unit for alcohol withdrawal symptoms patient. Pt stated that he was referred to ER by [employer] due to etoh withdrawal symptoms. He is a poor historian. Patient stated that he started drinking at the age of 16 or 17. He reported that he had relapse on alcohol after the completion of detox in 10/2017. Pt stated that currently he drink 2-1/2 pints of Vodka on a daily basis. He reported alcohol withdrawal symptoms. Currently he is not attending AA meetings. CAGE questionnaire was positive. Pt denies SI/ HI or A/V hallucinations. Pt denies seizure history but reports a history of "black outs" last black out, was few days ago. social history: Pt states he stays at [facility]. Pt states his plan is to gain employment in [place] but he needs detox first. Pt states his mother is in a fci in [place] and plan to go to [place]. Pt denies status. Pt' s highest level of education is High School. P Patient is single and has 2 children's. Patient's both symptoms are living with their mother in [place]. Past medical his: Asthma Current meds: none reported Current Medications: Active Medications Generic Name Dose Route Start Last Admin Trade Name Freq PRN Reason Stop Dose Admin Chlordiazepoxide 25 mg 02/09/18 17:32 Librium PO Q4H PRN Alcohol Withdrawal Chlordiazepoxide 25 mg 02/10/18 10:52 02/10/18 11:07 Librium PO 02/14/18 17:59 25 mg Q6 SHANEL Administration Taper Clonidine HCl 0.1 mg 02/10/18 09:01 02/10/18 09:30 Catapres PO 0.1 mg Q8 PRN Administration COWS Score More or Equal to 5 Folic Acid 1 mg 02/10/18 11:00 02/10/18 11:07 Folic Acid PO 1 mg DAILY SHANEL Administration Guaifenesin 100 mg 02/10/18 12:00 Robitussin PO Q4H PRN Cough Hydroxyzine HCl 25 mg 02/09/18 17:35 Atarax PO Q6 PRN Anxiety Multivitamins 1 tab 03/21/18 11:00 02/10/18 11:06 Hexavitamin PO 1 tab DAILY SHANEL Administration Thiamine HCl 100 mg 02/10/18 11:00 02/10/18 11:07 Vitamin B1 Tab PO 100 mg DAILY SHANEL Administration Trazodone HCl 50 mg 02/09/18 17:33 Desyrel PO HS PRN Insomnia Past Psychiatric History - Past Psychiatric History Previous Treatment History: Inpatient Prior Professional Help: detox at [facility] Prior Psychiatric Treatment: At what hospital: [facility] Explanation of prior treatment: Previous detox [facility] 11/16/17-11/20/17 inpt sober for 1 week [facility] 06/15/17-06/19/17 inpt sober for 1 week History of Abuse: denied History of ETOH/Drug Use: please see HPI Pertinent Medical Hx (Current Medical&Sleep Prob, Allergies): Allergies Allergy/AdvReac Type Severity Reaction Status Date / Time No Known Allergies Allergy Verified 02/09/18 12:19 No Known Home Med 02/09/18 Review of Systems - Review of Systems All systems: reviewed and no additional remarkable complaints except (see HPI) - EENT Eyes: UNREMARKABLE Ears: UNREMARKABLE Nose/Mouth/Throat: Nasal Congestion, Sore Throat - Cardiovascular Cardiovascular: UNREMARKABLE - Respiratory Respiratory: UNREMARKABLE - Gastrointestinal Gastrointestinal: UNREMARKABLE - Genitourinary Genitourinary: UNREMARKABLE - Reproductive: Male Reproductive:Male: UNREMARKABLE - Musculoskeletal Musculoskeletal: Myalgias - Integumentary Integumentary: UNREMARKABLE - Neurological Neurological: UNREMARKABLE - Psychiatric Psychiatric: As Per HPI - Endocrine Endocrine: UNREMARKABLE - Hematologic/Lymphatic Hematologic: UNREMARKABLE Mental Status Examination - Personal Presentation Personal Presentation: Looks stated age, Dressed appropriate to season Additional comments: Calm and cooperative - Affect Affect: Constricted - Motor Activity Motor Activity: Calm - Reliability in Providing Information Reliability in Providing Information: Fair - Speech Speech: Coherent - Mood Mood: Anxious - Formal Thought Process Formal Thought Process: No Impairment - Hallucinations/Delusions Hallucinations: Other (denied) - Obsessions/Compulsions Obsessions: No Compulsions: None - Cognitive Functions Orientation: Person, Place, Situation, Time Sensorium: Alert Attention/Concentration: Easily distracted Abstract Thinking: [place] Estimate of Intelligence: Below average Judgement: Intact, as evidence by: Good judgement, Intact, as evidence by: Insight regarding need for hospitalization - Risk Risk: Withdrawal, Falls - Strength & Assets Inventory Strength & Assets Inventory: Family support, Cooperative - Limitations Limitations: Other (chronic alcohol use) DSM 5 DX - DSM 5 DSM 5 Diagnosis: Alcohol use disorder, severe, dependence Alcohol withdrawal symptoms. - Recommended/Plan of Treatment Treatment Recommendations and Plan of Treatment: Librium detox Gabapentin for augmentation As needed meds and vitamins Attend groups and activities ID for abstinence and CBT for relapse prevention Support and psychoeducation Consider and encourage MAT 33 min Projected ELOS: 5-6 days Prognosis: fair Discharge Plan and Discharge Criteria: Refer to after care
[2018-02-11] MEDS: Multiple Vitamins Tab PO SCH (09:45)
[2018-02-11] MEDS ORDERED: Influenza Vaccine 60 mcg/0.5 mL SYR (4YR UP) IM ONE (10:00)
[2018-02-11] MEDS ORDERED: Benzocaine/Menthol (Cepacol) Lozenge MT PRN (11:33)
[2018-02-11] MEDS ORDERED: Oxymetazoline 0.05% Nasal Spray (30 ml) NS SCH (11:45)
[2018-02-11] MEDS ORDERED: Albuterol HFA 90 mcg/actuation (8 g) INH PRN (12:00)
--- NOTE | 2018-02-11 16:07 | PCM.PYCHPN ---
Psychiatric Progress Note - Psychiatric Progress Note Patient seen today, length of contact: 15 minutes Patient Chief Complaint: "I have a cough" Problems Identified/Issues Discussed: The pt is seen, chart reviewed, case discussed with staff. Pt complaining of a cough Support given, CBT and SD used briefly Symptoms improving slowly and needs more time No SEs from medications, risks discussed. After care discussed Mental Status Examination - Cognitive Function Orientation: Person, Place, Situation, Time Attention: WNL Concentration: Poor Association: WNL Fund of Knowledge: WNL - Mood Mood: Anxious - Affect Affect: Constricted - Formal Thought Process Formal Thought Process: No Impairment - Suicidal Ideation Suicidal Ideation: No - Homicidal Ideation Homicidal Ideation: No Goal/Treatment Plan - Goal/Treatment Plan Need for Continued Stay: Discharge may exacerbated symptoms, Severe functional impairment Progress Toward Problem(s) and Goals/Treatment Plan: Continue medications Support and psychoeducation daily Attend groups and activities daily After care planning by EFREN
[2018-02-11] MEDS: Oxymetazoline 0.05% Nasal Spray (30 ml) NS SCH (21:38)
[2018-02-12] MEDS: Multiple Vitamins Tab PO SCH (09:53)
[2018-02-12] MEDS: Oxymetazoline 0.05% Nasal Spray (30 ml) NS SCH ×2 (09:55→21:28)
--- NOTE | 2018-02-12 20:41 | PCM.PYCHPN ---
Psychiatric Progress Note - Psychiatric Progress Note Patient seen today, length of contact: 15 minutes Patient Chief Complaint: I'm feeling little better. Problems Identified/Issues Discussed: Patient seen, chart reviewed, case discussed with the staff. X Issues related to illness and treatment were discussed with the patient. Reported compliant with treatment with no adverse affects. Reported not feeling much better Still having some shakes in his hands. At the time of evaluation, patient was awake alert oriented 3, no delusions, no auditory or visual hallucinations, no suicidal ideations or homicidal ideations. Aftercare discussed with the patient. Patient wants to attend AA meetings in [place] as he wants to move to [place] with his family. Medical Problems: Asthma Diagnostic Results: Reviewed DSM 5 Symptoms Update: Some improvement with treatment Medication Change: No Medical Record Reviewed: Yes Mental Status Examination - Cognitive Function Orientation: Person, Place, Situation, Time Memory: Intact Attention: WNL Concentration: WNL Association: [facility] Fund of Knowledge: [facility] Decription of patient's judgement and insights: Fair - Mood Mood: Anxious - Affect Affect: Other (Appropriate) - Speech Speech: Appropriate - Formal Thought Process Formal Thought Process: No Impairment Psychotic Thoughts and Behaviors: None - Suicidal Ideation Suicidal Ideation: No - Homicidal Ideation Homicidal Ideation: No Goal/Treatment Plan - Goal/Treatment Plan Need for Continued Stay: Remain at risks for inpatient hospitalization, Discharge may exacerbated symptoms, Severe functional impairment Progress Toward Problem(s) and Goals/Treatment Plan: Patient education Supportive therapy CBT for relapse prevention [place] for abstinence Continue treatment as before Estimated Date of D/C: 02/15/18 - Smoking Cessation Smoking Cessation Initiated: No
[2018-02-13] MEDS: Oxymetazoline 0.05% Nasal Spray (30 ml) NS SCH ×2 (10:36→22:00)
[2018-02-13] MEDS: Multiple Vitamins Tab PO SCH (10:36)
--- NOTE | 2018-02-13 18:37 | PCM.PYCHPN ---
Psychiatric Progress Note - Psychiatric Progress Note Patient seen today, length of contact: 15 minutes Problems Identified/Issues Discussed: Patient seen, chart reviewed, case discussed with the staff. X Issues related to illness and treatment were discussed with the patient. Reported compliant with treatment with no adverse affects. Reported feeling much better Reported as okay. -Affect appropriate. At the time of evaluation, patient was awake alert oriented 3, no delusions, no auditory or visual hallucinations, no suicidal ideations or homicidal ideations. Aftercare discussed with the patient. Patient wants to attend AA meetings in [place] as he wants to move to [place] with his family. Medical Problems: Asthma Diagnostic Results: Reviewed DSM 5 Symptoms Update: Improving with treatment Medication Change: No Medical Record Reviewed: Yes Mental Status Examination - Cognitive Function Orientation: Person, Place, Situation, Time Memory: Intact Attention: WNL Concentration: WNL Association: WN Fund of Knowledge: [facility] Decription of patient's judgement and insights: Fair - Mood Mood: Anxious (Less than before) - Affect Affect: Other (Appropriate) - Speech Speech: Appropriate - Formal Thought Process Formal Thought Process: No Impairment Psychotic Thoughts and Behaviors: None - Suicidal Ideation Suicidal Ideation: No - Homicidal Ideation Homicidal Ideation: No Goal/Treatment Plan - Goal/Treatment Plan Need for Continued Stay: Remain at risks for inpatient hospitalization, Discharge may exacerbated symptoms, Severe functional impairment Progress Toward Problem(s) and Goals/Treatment Plan: Patient education Supportive therapy CBT for relapse prevention [place] for abstinence Continue treatment as before Estimated Date of D/C: 02/15/18 - Smoking Cessation Smoking Cessation Initiated: No
[2018-02-14] MEDS: Multiple Vitamins Tab PO SCH (09:57)
[2018-02-14] MEDS: Oxymetazoline 0.05% Nasal Spray (30 ml) NS SCH ×2 (09:57→22:17)
[2018-02-14 16:19] VITALS: RESP 18
--- NOTE | 2018-02-14 22:26 | PCM.PYCHPN ---
Psychiatric Progress Note - Psychiatric Progress Note Patient seen today, length of contact: 15 minutes Patient Chief Complaint: I'm feeling much better Problems Identified/Issues Discussed: Patient seen, chart reviewed, case discussed with the staff. X Issues related to illness and treatment were discussed with the patient. Reported compliant with treatment with no adverse affects. Reported feeling much better Reported as okay. -Affect appropriate. At the time of evaluation, patient was awake alert oriented 3, no delusions, no auditory or visual hallucinations, no suicidal ideations or homicidal ideations. Aftercare discussed with the patient. Patient wants to attend AA meetings in [place] as he wants to move to [place] with his family. Medical Problems: Asthma Diagnostic Results: Reviewed DSM 5 Symptoms Update: Improving with treatment Medication Change: No Medical Record Reviewed: Yes Mental Status Examination - Cognitive Function Orientation: Person, Place, Situation, Time Attention: WNL Concentration: WNL Association: WNL Fund of Knowledge: [facility] Decription of patient's judgement and insights: Fair - Mood Mood: Neutral - Affect Affect: Other (Appropriate) - Speech Speech: Appropriate - Formal Thought Process Formal Thought Process: No Impairment Psychotic Thoughts and Behaviors: None - Suicidal Ideation Suicidal Ideation: No - Homicidal Ideation Homicidal Ideation: No Goal/Treatment Plan - Goal/Treatment Plan Need for Continued Stay: Remain at risks for inpatient hospitalization, Discharge may exacerbated symptoms, Severe functional impairment Progress Toward Problem(s) and Goals/Treatment Plan: Patient education Supportive therapy CBT for relapse prevention [place] for abstinence Continue treatment as before Estimated Date of D/C: 02/15/18 - Smoking Cessation Smoking Cessation Initiated: No
[2018-02-15 08:43] VITALS: BP 105/74; PULSE 80; TEMP 98.2; O2SAT 99
[2018-02-15] MEDS: Oxymetazoline 0.05% Nasal Spray (30 ml) NS SCH (09:19)
[2018-02-15] MEDS: Multiple Vitamins Tab PO SCH (09:19)
--- NOTE | 2018-02-15 15:08 | PCM.PYCHDC ---
Mental Status Examination - Mental Status Examination Orientation: Person, Place, Situation, Time Memory: Intact Mood: Neutral Affect: Other (Appropriate) Speech: Appropriate Attention: WNL Concentration: WNL Association: WNL Fund of Knowledge: WNL Formal Thought Process: No Impairment Description of patient's judgement and insight: Fair Psychotic Thoughts and Behaviors: None Suicidal Ideation: No Current Homicidal Ideation?: No Discharge Summary - Discharge Note Reason for Hospitalization: Alcohol use disorder Laboratory Data: Reviewed Consultations:: List each consultation separately and include: 1. Reason for request. 2. Findings. 3. Follow-up Summary of Hospital Course include:: 1. Description of specific treatment plan utilized for patients during their course of treatmen. 2. Summarize the time- course for resolution of acute symptoms and/or regressed behaviors. 3. Describe issues identified and worked on during hospitalization. 4. Describe medication utilized. 5. Describe medical problems identified and treated. 6. Reassessment of suicide risk Summary of Hospital Course: This is a 47 year old male who was presented and admitted to the detox unit for alcohol withdrawal symptoms patient. Pt stated that he was referred to ER by [facility] due to etoh withdrawal symptoms. He is a poor historian. Patient stated that he started drinking at the age of 16 or 17. He reported that he had relapse on alcohol after the completion of detox in 10/2017. Pt stated that currently he drink 2-1/2 pints of Vodka on a daily basis. He reported alcohol withdrawal symptoms. Currently he is not attending AA meetings. CAGE questionnaire was positive. Pt denies SI/ HI or A/V hallucinations. Pt denies seizure history but reports a history of "black outs" last black out, was few days ago. social history: Pt states he stays at [email or web address]. Pt states his plan is to gain employment in [place] but he needs detox first. Pt states his mother is in a halfway in [place] and plan to go to [place]. Pt denies status. Pt' s highest level of education is High School. P Patient is single and has 2 children's. Patient's both symptoms are living with their mother in [place]. Past medical his: Asthma Current meds: none reported During his stay in the hospital patient was treated with Librium taper for alcohol withdrawal symptoms. He was also started on other when necessary medications. Patient was attending groups and other activities on the unit. With the above treatment patient started feeling better. Today patient was stable, had no withdrawal symptoms and ready for discharge. At the time of evaluation and discharge, patient was awake alert oriented 3, had no delusions , no auditory or visual hallucinations, no suicidal ideations or homicidal ideations. Patient was discharged in a stable condition. Patient reported that his whole family lives in [place]. He will attend AA meetings in [place]. - Final Diagnosis (DSM 5) Condition upon Discharge: STABLE Disposition: HOME/ ROUTINE Follow-up Treatment Plan: Patient will attend AA meetings. Prescriptions/Medication Reconciliation: traZODone [Desyrel] 50 mg PO HS PRN #30 tab PRN Reason: Insomnia - Smoking Cessation Smoking Cessation Medication prescribed: No - Antipsychotic Medications Pt discharged on 2 or more routine antipsychotic medications: No
== END 2018-02-15 11:45 | disposition home or self-care (01) | DRG 751 ==
LOC: C.ER 11:54 → C.7D 15:42
PROVIDERS: ADMIT Psychiatry & Neurology Psychiatry; ATTEND Psychiatry & Neurology Psychiatry
PROC: HZ2ZZZZ Detoxification Services for Substance Abuse Treatment (ICD-10-PCS; principal; 2018-02-09)
PROC: HZ59ZZZ Individual Psychotherapy for Substance Abuse Treatment, Supportive (ICD-10-PCS; 2018-02-09)
PROC: HZ46ZZZ Group Counseling for Substance Abuse Treatment, Psychoeducation (ICD-10-PCS; 2018-02-09)
DX: F10.230 Alcohol dependence with withdrawal, uncomplicated (principal); F17.210 Nicotine dependence, cigarettes, uncomplicated; J45.909 Unspecified asthma, uncomplicated

== ENCOUNTER 2018-02-28 19:51 | Emergency (ER) | payer MEDICAID ==
[2018-02-28 19:52] VITALS: BMI 22.9
--- NOTE | 2018-02-28 20:33 | C.PDOC ---
History Of Present Illness 47 y/o male brought to the ED for alcohol intoxication. He admits to drinking heavily today. Patient was recently discharged from detox at end of the month but has been drinking again. He reports some nausea and is retching on arrival. Time Seen by Provider: 02/28/18 20:32 Chief Complaint (Nursing): Psychiatric Evaluation History Per: Patient History/Exam Limitations: intoxication Onset/Duration Of Symptoms: Hrs Current Symptoms Are (Timing): Still Present Suicide/Self Injury Attempted (Context): None Modifying Factor(s): Alcohol Severity: None Pain Scale Rating Of: 0 Involuntary Hold By: None Recent travel outside of the [place]: No Past Medical History Reviewed: Historical Data, Nursing Documentation, Vital Signs Vital Signs: Last Vital Signs Temp 97.4 F L 03/01/18 02:23 Pulse 89 03/01/18 02:23 Resp 20 03/01/18 02:23 BP 148/70 03/01/18 02:23 Pulse Ox 98 03/01/18 02:23 - Medical History PMH: Asthma, Depression, Seizures Denies: HIV, HTN, Chronic Kidney Disease, Sexually Transmitted Disease Surgical History: No Surg Hx - [facility] Procedures DETOXIFICATION SERVICES FOR SUBSTANCE ABUSE TREATMENT (02/09/18) GROUP PATTERN DEVELOPER FOR SUBSTANCE ABUSE TREATMENT, PSYCHOEDUCATION (02/09/18) INDIV PSYCHOTHERAPY FOR SUBSTANCE ABUSE TREATMENT, SUPPORT (02/09/18) Family History: States: Unknown Family Hx - Social History Hx Tobacco Use: Yes Hx Alcohol Use: Yes Hx Substance Use: Yes - Immunization History Hx Tetanus Toxoid Vaccination: No Hx Influenza Vaccination: No Hx Pneumococcal Vaccination: No Review Of Systems Constitutional: Negative for: Fever Respiratory: Negative for: Shortness of Breath Gastrointestinal: Positive for: Nausea Psych: Positive for: Other (alcohol intoxication) Physical Exam - Physical Exam Appears: Non-toxic, No Acute Distress Skin: Warm, Dry Head: Normacephalic Eye(s): bilateral: Normal Inspection Oral Mucosa: Moist Neck: Trachea Midline, Supple Chest: Symmetrical Cardiovascular: Rhythm Regular Respiratory: No Rales, No Rhonchi, No Wheezing Gastrointestinal/Abdominal: Soft, No Tenderness, No Distention Extremity: Bilateral: Atraumatic, Normal ROM Pulses: Left Dorsalis Pedis: Normal, Right Dorsalis Pedis: Normal Neurological/Psych: Oriented x3 ED Course And Treatment O2 Sat by Pulse Oximetry: 98 (RA) Pulse Ox Interpretation: Normal Progress Note: Zofran ODT given in the ED. Reevaluation Time: 04:59 Reassessment Condition: Improved Disposition Counseled Patient/Family Regarding: Studies Performed, Diagnosis, Need For Followup - Disposition Referrals: [facility] [Outside] Disposition: HOME/ ROUTINE Disposition Time: 20:32 Condition: FAIR Instructions: Alcohol Abuse and Alcoholism (DC) Forms: [facility] (Tongan) - Clinical Impression Clinical Impression: Alcohol intoxication - Scribe Statement The provider has reviewed the documentation as recorded by the Sanford Rain Provider Attestation: All medical record entries made by the Sanford were at my direction and personally dictated by me. I have reviewed the chart and agree that the record accurately reflects my personal performance of the history, physical exam, medical decision making, and the department course for this patient. I have also personally directed, reviewed, and agree with the discharge instructions and disposition.
[2018-02-28 21:26] VITALS: O2SAT 98
[2018-03-01 02:24] VITALS: RESP 20
[2018-03-01 06:02] VITALS: BP 131/70; PULSE 86; TEMP 97.5
== END 2018-03-01 06:02 | disposition home or self-care (01) ==
LOC: C.ER 19:51
DX: F10.129 Alcohol abuse with intoxication, unspecified (principal)

== ENCOUNTER 2018-03-01 15:50 | Emergency (ER) | payer MEDICAID ==
[2018-03-01 15:51] VITALS: BMI 22.9
[2018-03-01 17:01] VITALS: BP 137/85; PULSE 100; RESP 18; TEMP 98; O2SAT 95
--- NOTE | 2018-03-01 18:44 | C.PDOC ---
History Of Present Illness 47 year old male with PMHx of alcohol abuse presents to the ED c/o lower back pain. Patient is also requesting detox for alcohol. Patient denies heavy lifting , injury, trauma, SI/HI, hallucinations. While in the ED patient had clear speech and a steady gait. Time Seen by Provider: 03/01/18 17:44 Chief Complaint (Nursing): Back Pain History Per: Patient History/Exam Limitations: no limitations Onset/Duration Of Symptoms: Days Current Symptoms Are (Timing): Still Present Quality Of Discomfort: "Pain" Exacerbating Factor(s): Nothing Recent travel outside of the [place]: No Additional History Per: Patient Past Medical History Reviewed: Historical Data, Nursing Documentation, Vital Signs Vital Signs: Last Vital Signs Temp 98 F 03/01/18 16:58 Pulse 100 H 03/01/18 16:58 Resp 18 03/01/18 16:58 BP 137/85 03/01/18 16:58 Pulse Ox 95 03/01/18 18:44 - Medical History PMH: Asthma, Depression, Seizures Denies: HIV, HTN, Chronic Kidney Disease, Sexually Transmitted Disease Surgical History: No Surg Hx - [facility] Procedures DETOXIFICATION SERVICES FOR SUBSTANCE ABUSE TREATMENT (02/09/18) GROUP MAT MAKING MACHINE TENDER FOR SUBSTANCE ABUSE TREATMENT, PSYCHOEDUCATION (02/09/18) INDIV PSYCHOTHERAPY FOR SUBSTANCE ABUSE TREATMENT, SUPPORT (02/09/18) Family History: States: Unknown Family Hx - Social History Hx Tobacco Use: Yes Hx Alcohol Use: Yes Hx Substance Use: Yes - Immunization History Hx Tetanus Toxoid Vaccination: No Hx Influenza Vaccination: No Hx Pneumococcal Vaccination: No Review Of Systems Constitutional: Negative for: Fever, Chills Cardiovascular: Negative for: Chest Pain Respiratory: Negative for: Shortness of Breath Gastrointestinal: Negative for: Abdominal Pain Musculoskeletal: Positive for: Back Pain Skin: Negative for: Rash Psych: Negative for: Depression, Suicidal ideation Physical Exam - Physical Exam Appears: Non-toxic, No Acute Distress, Unkempt Skin: Normal Color, Warm, Dry Head: Atraumatic, Normacephalic Eye(s): bilateral: Normal Inspection Nose: No Discharge Oral Mucosa: Moist Neck: Normal ROM, Supple Back: No Vertebral Tenderness, No Paraspinal Tenderness Extremity: Normal ROM, No Tenderness, No Swelling Neurological/Psych: Oriented x3, Normal Speech Gait: Steady ED Course And Treatment O2 Sat by Pulse Oximetry: 95 (ON RA) Pulse Ox Interpretation: Normal Disposition Counseled Patient/Family Regarding: Diagnosis, Need For Followup - Disposition Referrals: [facility] [Outside] Disposition: HOME/ ROUTINE Disposition Time: 18:43 Condition: GOOD Additional Instructions: Follow up in medical clinic. Tylenol or Motrin for back pain. Forms: [facility] (Kyrgyz), General Discharge Instructions - Clinical Impression Clinical Impression: Low back pain, Alcohol abuse - PA / MOLD SHIFTER / Resident Statement MD/DO has reviewed & agrees with the documentation as recorded. - Scribe Statement The provider has reviewed the documentation as recorded by the Scribe Freedom Campbell All medical record entries made by the Scribe were at my direction and personally dictated by me. I have reviewed the chart and agree that the record accurately reflects my personal performance of the history, physical exam, medical decision making, and the department course for this patient. I have also personally directed, reviewed, and agree with the discharge instructions and disposition.
== END 2018-03-01 18:30 | disposition home or self-care (01) ==
LOC: C.ER 15:50
DX: M54.5 Low back pain (principal); F10.10 Alcohol abuse, uncomplicated; Y90.9 Presence of alcohol in blood, level not specified

== ENCOUNTER 2018-03-03 19:49 | Emergency (ER) | payer MEDICAID ==
[2018-03-03 19:50] VITALS: BMI 22.9
[2018-03-03 20:06] VITALS: TEMP 98
--- NOTE | 2018-03-03 20:17 | C.PDOC ---
Chief Complaint (Nursing): Back Pain Past Medical History Vital Signs: Last Vital Signs Temp 98 F 03/03/18 20:00 Pulse 101 H 03/03/18 20:00 Resp 20 03/03/18 20:00 BP 153/102 H 03/03/18 20:00 Pulse Ox 96 03/03/18 20:00 - Medical History PMH: Asthma, Depression, Seizures Denies: HIV, HTN, Chronic Kidney Disease, Sexually Transmitted Disease - [facility] Procedures DETOXIFICATION SERVICES FOR SUBSTANCE ABUSE TREATMENT (02/09/18) GROUP BEHAVIORAL HEALTH CARE COORDINATOR FOR SUBSTANCE ABUSE TREATMENT, PSYCHOEDUCATION (02/09/18) INDIV PSYCHOTHERAPY FOR SUBSTANCE ABUSE TREATMENT, SUPPORT (02/09/18) Family History: States: Unknown Family Hx - Social History Hx Tobacco Use: Yes Hx Alcohol Use: Yes Hx Substance Use: Yes - Immunization History Hx Tetanus Toxoid Vaccination: No Hx Influenza Vaccination: No Hx Pneumococcal Vaccination: No ED Course And Treatment O2 Sat by Pulse Oximetry: 96 Disposition - Disposition
--- NOTE | 2018-03-03 20:21 | C.PDOC ---
History Of Present Illness 47 year old male presents to the ED requesting a place to stay for the night. Patient also admits to drinking earlier tonight and is requesting alcohol detox. Contrary to triage, patient denies lower back pain. He also denies any other injuries. Chief Complaint (Nursing): Back Pain History Per: Patient History/Exam Limitations: no limitations Onset/Duration Of Symptoms: Hrs Current Symptoms Are (Timing): Still Present Suicide/Self Injury Attempted (Context): None Modifying Factor(s): Alcohol Associated Symptoms: denies: Suicidal Thoughts, Suicidal Plan Involuntary Hold By: None Recent travel outside of the [place]: No Additional History Per: Patient Past Medical History Reviewed: Historical Data, Nursing Documentation, Vital Signs Vital Signs: Last Vital Signs Temp 98 F 03/03/18 20:00 Pulse 90 03/04/18 03:56 Resp 18 03/04/18 03:56 BP 97/60 L 03/04/18 03:56 Pulse Ox 100 03/04/18 03:56 - Medical History PMH: Asthma, Depression, Seizures Denies: HIV, HTN, Chronic Kidney Disease, Sexually Transmitted Disease Surgical History: No Surg Hx - [facility] Procedures DETOXIFICATION SERVICES FOR SUBSTANCE ABUSE TREATMENT (02/09/18) GROUP CASKET LINER FOR SUBSTANCE ABUSE TREATMENT, PSYCHOEDUCATION (02/09/18) INDIV PSYCHOTHERAPY FOR SUBSTANCE ABUSE TREATMENT, SUPPORT (02/09/18) Family History: States: Unknown Family Hx - Social History Hx Tobacco Use: Yes Hx Alcohol Use: Yes Hx Substance Use: Yes - Immunization History Hx Tetanus Toxoid Vaccination: No Hx Influenza Vaccination: No Hx Pneumococcal Vaccination: No Review Of Systems Musculoskeletal: Negative for: Back Pain Psych: Positive for: Other (EtOH intoxication ) Physical Exam - Physical Exam Appears: Non-toxic, No Acute Distress, Other (visibly intoxicated) Skin: Normal Color, Warm, Dry Head: Atraumatic, Normacephalic Eye(s): bilateral: Normal Inspection Oral Mucosa: Moist, Other (alcohol on breath ) Neck: Supple Chest: Symmetrical, No Deformity, No Tenderness Cardiovascular: Rhythm Regular, No Murmur Respiratory: Normal Breath Sounds, No Rales, No Rhonchi, No Wheezing Extremity: Normal ROM, Capillary Refill (less than 2 seconds ) Neurological/Psych: Other (alert, conscious, arousable to touch and verbal stimuli ) Gait: Unsteady ED Course And Treatment - Laboratory Results Result Diagrams: 03/03/18 20:40 03/03/18 20:40 O2 Sat by Pulse Oximetry: 96 (on RA) Pulse Ox Interpretation: Normal Progress Note: Bloodwork and urinalysis ordered and reviewed. Patient is informed about the unavailability of detox beds at this time. Disposition Counseled Patient/Family Regarding: Diagnosis - Disposition Referrals: [facility] [Outside] Disposition: HOME/ ROUTINE Disposition Time: 05:08 Condition: STABLE Instructions: Alcohol Abuse and Alcoholism (DC) Forms: [facility] (Frisian), Gen Discharge Inst Malay Print Language: UPPER SORBIAN - POA Present On Arrival: None - Clinical Impression Clinical Impression: Alcohol abuse - Scribe Statement The provider has reviewed the documentation as recorded by the Scribe (Jessica Miller) Provider Attestation: All medical record entries made by the Scribe were at my direction and personally dictated by me. I have reviewed the chart and agree that the record accurately reflects my personal performance of the history, physical exam, medical decision making, and the department course for this patient. I have also personally directed, reviewed, and agree with the discharge instructions and disposition.
[2018-03-03 20:48] LABS: BASO % 0.3 % (0.0-2.0); EOS # 0.1 K/uL (0.0-0.7); EOS % 3.1 % (0.0-4.0); HEMOGLOBIN 13.8 g/dL (12.0-18.0); LYMPH # 1.2 K/uL (1.0-4.3); LYMPH % 27.6 % (20.0-40.0); MEAN CELL VOLUME 99.4 fL (80.0-94.0); MEAN CORPUSCULAR HEMOGLOBIN 34.4 pg (27.0-31.0); MEAN CORPUSCULAR HGB CONC 34.7 g/dL (33.0-37.0); MEAN PLATELET VOLUME 7.9 fL (7.2-11.7); MONO # 0.4 K/uL (0.0-0.8); MONO % 9.9 % (0.0-10.0); NEUT # 2.6 K/uL (1.8-7.0); NEUT % 59.1 % (50.0-75.0); NRBC % 0.1 % (0.0-2.0); RBC 4.01 Mil/uL (4.40-5.90); RED CELL DISTRIBUTION WIDTH 13.6 % (11.5-14.5); WHITE BLOOD COUNT 4.3 K/uL (4.8-10.8)
[2018-03-03 20:52] LABS: SQUAMOUS EPITHIAL < 1 /hpf (0-5); URINE BILIRUBIN NEGATIVE (NEGATIVE); URINE BLOOD NEGATIVE (NEGATIVE); URINE CLARITY Clear (Clear); URINE COLOR Yellow (YELLOW); URINE GLUCOSE (UA) NORMAL (Normal); URINE LEUKOCYTE ESTERASE TRACE Leu/uL (Negative); URINE PROTEIN NEGATIVE (NEGATIVE); URINE UROBILINOGEN NORMAL mg/dL (0.2-1.0)
[2018-03-03 21:02] LABS: ALB/GLOB RATIO 1.1 (1.0-2.1); ALBUMIN 4.5 g/dL (3.5-5.0); ALT/SGPT 61 U/L (21-72); AST/SGOT 125 U/L (17-59); BLOOD UREA NITROGEN 7 mg/dL (9-20); CALCIUM 9.2 mg/dl (8.6-10.4); GFR AFRICAN-AMERICAN > 60; GFR NON-AFRICAN AMERICAN > 60
[2018-03-03 21:09] LABS: BARBITURATES, UR NEGATIVE (NEGATIVE); OPIATES, UR NEGATIVE (NEGATIVE); PHENCYCLIDINE, UR NEGATIVE (NEGATIVE)
[2018-03-03 21:11] LABS: BENZODIAZEPINES, UR POSITIVE (NEGATIVE)
[2018-03-04 01:42] VITALS: RESP 18
[2018-03-04 05:19] VITALS: BP 110/75; PULSE 76; O2SAT 100
== END 2018-03-04 05:30 | disposition home or self-care (01) ==
LOC: C.ER 19:49
DX: F10.10 Alcohol abuse, uncomplicated (principal); Y90.8 Blood alcohol level of 240 mg/100 ml or more

== ENCOUNTER 2018-03-05 00:04 | Emergency (ER) | payer MEDICAID ==
[2018-03-05 00:04] VITALS: BMI 22.9
[2018-03-05 00:13] VITALS: RESP 18; TEMP 97.5
--- NOTE | 2018-03-05 01:19 | C.PDOC ---
History Of Present Illness 47 year old male BIBA for evaluation of alcohol intoxication in public. Patient admits to drinking alcohol, and denies any physical complaints. Time Seen by Provider: 03/05/18 00:07 Chief Complaint (Nursing): Substance Abuse History Per: Patient, EMS History/Exam Limitations: no limitations Onset/Duration Of Symptoms: Hrs Current Symptoms Are (Timing): Still Present Suicide/Self Injury Attempted (Context): None Modifying Factor(s): Alcohol Severity: Moderate Associated Symptoms: denies: Depression, Suicidal Thoughts Involuntary Hold By: Emergency Physician Past Medical History Reviewed: Historical Data, Nursing Documentation, Vital Signs Vital Signs: Last Vital Signs Temp 97.5 F L 03/05/18 00:10 Pulse 90 03/05/18 04:38 Resp 18 03/05/18 04:38 BP 107/70 03/05/18 04:38 Pulse Ox 96 03/05/18 04:38 - Medical History PMH: Asthma, Depression, Seizures - [facility] Procedures DETOXIFICATION SERVICES FOR SUBSTANCE ABUSE TREATMENT (03/07/18) GROUP PAIRER SUBSTANDARD FOR SUBSTANCE ABUSE TREATMENT, PSYCHOEDUCATION (02/09/18) INDIV PSYCHOTHERAPY FOR SUBSTANCE ABUSE TREATMENT, SUPPORT (03/07/18) INDIV PSYCHOTHERAPY FOR SUBSTANCE ABUSE, COGNITIV BEHAVIORAL (03/07/18) INDIV PSYCHOTHERAPY FOR SUBSTANCE ABUSE, PSYCHOEDUCATION (03/07/18) Family History: States: Unknown Family Hx - Social History Hx Tobacco Use: Yes Hx Alcohol Use: Yes Hx Substance Use: Yes - Immunization History Hx Tetanus Toxoid Vaccination: No Hx Influenza Vaccination: No Hx Pneumococcal Vaccination: No Review Of Systems Except As Marked, All Systems Reviewed And Found Negative. Constitutional: Positive for: Other (ETOH on breath) Cardiovascular: Negative for: Chest Pain, Palpitations Respiratory: Negative for: Shortness of Breath Gastrointestinal: Negative for: Abdominal Pain Neurological: Negative for: Headache, Dizziness Physical Exam - Physical Exam Appears: Non-toxic, No Acute Distress, Other (ETOH on breath) Skin: Normal Color, Warm, Dry Head: Atraumatic, Normacephalic Eye(s): bilateral: Normal Inspection Oral Mucosa: Moist Neck: Normal, Normal ROM, No Midline Cervical Tenderness, No Paracervical Tenderness, No Step Off Deformity, Supple Chest: Symmetrical, No Tenderness Cardiovascular: Rhythm Regular Respiratory: Normal Breath Sounds, No Rales, No Rhonchi, No Wheezing Gastrointestinal/Abdominal: Normal Exam, Bowel Sounds, Soft, No Tenderness Extremity: Normal ROM Extremity: Bilateral: Atraumatic Neurological/Psych: Other (awake, alert, intoxicated, moving all 4 extremities spontaneously) ED Course And Treatment O2 Sat by Pulse Oximetry: 97 (Room air) Pulse Ox Interpretation: Normal Progress Note: Accucheck ordered and reviewed. Patient pending sobriety. 2: 35am - Patient arousable to verbal stimuli - pending sobriety. Reevaluation Time: 05:30 Reassessment Condition: Improved (Patient is currently AAOx3, ambulating normally in the ED. He is clinically sober at this time, will discharge.) Disposition Counseled Patient/Family Regarding: Diagnosis, Need For Followup - Disposition Referrals: Non [facility] Provider, [Primary Care Provider] - Disposition: HOME/ ROUTINE Disposition Time: 05:40 Condition: STABLE Instructions: Alcohol Abuse and Alcoholism (DC) Forms: [facility] (Latvian) Print Language: GEORGIAN - Clinical Impression Clinical Impression: Alcohol intoxication - Scribe Statement The provider has reviewed the documentation as recorded by the Scribshona Ivy All medical record entries made by the Scribe were at my direction and personally dictated by me. I have reviewed the chart and agree that the record accurately reflects my personal performance of the history, physical exam, medical decision making, and the department course for this patient. I have also personally directed, reviewed, and agree with the discharge instructions and disposition.
[2018-03-05 04:40] VITALS: BP 107/70; PULSE 90
[2018-03-11 18:43] VITALS: O2SAT 97
== END 2018-03-05 05:00 | disposition home or self-care (01) ==
LOC: C.ER 00:04 → SUPCPDRO 00:04 → C.ER 05:00
DX: F10.129 Alcohol abuse with intoxication, unspecified (principal); Y90.9 Presence of alcohol in blood, level not specified

== ENCOUNTER 2018-03-07 01:42 | Inpatient (IN) | payer MEDICAID ==
[2018-03-07 01:43] VITALS: BMI 22.9
--- NOTE | 2018-03-07 02:10 | C.PDOC ---
History Of Present Illness 47 year old male is brought to the ED by EMS for evaluation of vomiting blood. Patient reports he is daily alcohol drinker, and today he noticed vomited blood which was not witness by the EMS personnel. Patient states he feels dizzy now. Patient denies CP, SOB, palpitations, fever, headache. Time Seen by Provider: 03/07/18 02:09 Chief Complaint (Nursing): GI Problem History Per: Patient History/Exam Limitations: intoxication Onset/Duration Of Symptoms: Hrs Current Symptoms Are (Timing): Gone Number Of Bleeding Episodes: Unknown Amount of Blood Loss: Medium Severity: Moderate Pain Scale Rating Of: 4 Quality Of Discomfort: Unable To Describe Associated Symptoms: Vomiting Modifying Factors: None Recent travel outside of the [place]: No Additional History Per: Patient Past Medical History Reviewed: Historical Data, Nursing Documentation, Vital Signs Vital Signs: Last Vital Signs Temp Pulse 79 03/07/18 02:37 Resp 20 03/07/18 02:37 BP 113/82 03/07/18 02:37 Pulse Ox 94 L 03/07/18 02:37 - Medical History PMH: Asthma, Depression, Seizures Denies: HIV, HTN, Chronic Kidney Disease, Sexually Transmitted Disease Surgical History: No Surg Hx - [facility] Procedures DETOXIFICATION SERVICES FOR SUBSTANCE ABUSE TREATMENT (02/09/18) GROUP INFORMATION SYSTEMS SECURITY OFFICER FOR SUBSTANCE ABUSE TREATMENT, PSYCHOEDUCATION (02/09/18) INDIV PSYCHOTHERAPY FOR SUBSTANCE ABUSE TREATMENT, SUPPORT (02/09/18) Family History: States: Unknown Family Hx - Social History Hx Tobacco Use: Yes Hx Alcohol Use: Yes Hx Substance Use: Yes - Immunization History Hx Tetanus Toxoid Vaccination: No Hx Influenza Vaccination: No Hx Pneumococcal Vaccination: No Review Of Systems Constitutional: Negative for: Fever, Chills Eyes: Negative for: Vision Change Cardiovascular: Negative for: Chest Pain, Palpitations Respiratory: Negative for: Shortness of Breath Gastrointestinal: Positive for: Vomiting, Abdominal Pain, Hematemesis Genitourinary: Negative for: Dysuria Musculoskeletal: Negative for: Back Pain Skin: Negative for: Rash Neurological: Positive for: Dizziness. Negative for: Weakness, Numbness, Headache Psych: Negative for: Anxiety Physical Exam - Physical Exam Appears: Non-toxic, No Acute Distress, Other (Strong AOB) Skin: Warm, Dry Head: Normacephalic Eye(s): bilateral: Normal Inspection Nose: No Discharge Oral Mucosa: Moist Gingiva: No Bleeding Throat: No Erythema, No Exudate Neck: Normal ROM, Supple Chest: Symmetrical Cardiovascular: Rhythm Regular, No Murmur Respiratory: No Rales, No Rhonchi, No Wheezing Gastrointestinal/Abdominal: Soft, Tenderness (mid epigastric), No Guarding, No Rebound Rectal: Heme Negative, Maroon Stool Back: No CVA Tenderness Extremity: Normal ROM, No Tenderness, No Swelling Extremity: Bilateral: Atraumatic Pulses: Left Dorsalis Pedis: Normal, Right Dorsalis Pedis: Normal Neurological/Psych: Oriented x3, Normal Speech, Normal Cognition Gait: Steady ED Course And Treatment - Laboratory Results Result Diagrams: 03/07/18 03:02 03/07/18 03:02 ECG: Interpreted By Me, Viewed By Me ECG Rhythm: Sinus Rhythm (76), Nonspecific Changes Pulse Ox Interpretation: Normal - Radiology CXR: Interpreted by Me, Viewed By Me CXR Interpretation: No: Infiltrates, Fracture, Pnemothorax Progress Note: Plan: - Labs. - EKG. - CXR. - Protonix 80 mg IV. - IV fluids. - Zofran 4 mg IVP. - UA Disposition Discussed With : Starr Jose Comment: accepted the pt on her service and took over the care at 4:29AM Doctor Will See Patient In The: Hospital Counseled Patient/Family Regarding: Studies Performed, Diagnosis - Disposition Disposition: HOSPITALIZED Disposition Time: 02:10 Condition: FAIR Forms: [facility] (Citizen Of [place]) - POA Present On Arrival: None - Clinical Impression Clinical Impression: Gastrointestinal hemorrhage, Abdominal pain, Alcohol intoxication, Alcohol abuse - Scribe Statement The provider has reviewed the documentation as recorded by the Scribe Freedom Campbell All medical record entries made by the Scribe were at my direction and personally dictated by me. I have reviewed the chart and agree that the record accurately reflects my personal performance of the history, physical exam, medical decision making, and the department course for this patient. I have also personally directed, reviewed, and agree with the discharge instructions and disposition. Decision To Admit - Pt Status Changed To: Hospital Disposition Of: Inpatient - Admit Certification Admit to Inpatient:: After my assessment, the patient will require hospitalization for at least two midnights. This is because of the severity of symptoms shown, intensity of services needed, and/or the medical risk in this patient being treated as an outpatient. - InPatient: Physician Admission Certification: I certify that this patient requires 2 or more midnights of care for the following reason:: After my assessment, the patient will require hospitalization for at least two midnights. This is because of the severity of symptoms shown, intensity of services needed, and/or the medical risk in this patient being treated as an outpatient. - . Bed Request Type: Telemetry Admitting Physician: Starr Jose Patient Diagnosis: Gastrointestinal hemorrhage, Abdominal pain, Alcohol intoxication, Alcohol abuse
[2018-03-07] MEDS ORDERED: Pantoprazole 80 MG in Sodium Chloride 0.9% 100 ML IV STA (02:12)
[2018-03-07] MEDS ORDERED: Sodium Chloride 0.9% 1,000 ML IV ONE (02:12)
[2018-03-07] MEDS ORDERED: Sodium Chloride 0.9% 1,000 ML ONE (02:20)
[2018-03-07 03:10] LABS: BASO % 0.6 % (0.0-2.0); EOS # 0.2 K/uL (0.0-0.7); EOS % 4.6 % (0.0-4.0); HEMOGLOBIN 13.9 g/dL (12.0-18.0); LYMPH # 1.8 K/uL (1.0-4.3); LYMPH % 40.9 % (20.0-40.0); MEAN CORPUSCULAR HEMOGLOBIN 34.2 pg (27.0-31.0); MEAN CORPUSCULAR HGB CONC 33.8 g/dL (33.0-37.0); MEAN PLATELET VOLUME 7.7 fL (7.2-11.7); MONO # 0.4 K/uL (0.0-0.8); MONO % 8.9 % (0.0-10.0); NEUT # 1.9 K/uL (1.8-7.0); NRBC % 0.1 % (0.0-2.0); RBC 4.06 Mil/uL (4.40-5.90); RED CELL DISTRIBUTION WIDTH 13.7 % (11.5-14.5); WHITE BLOOD COUNT 4.3 K/uL (4.8-10.8)
[2018-03-07 03:13] LABS: INR 0.9; PROTHROMBIN TIME 9.8 SECONDS (9.7-12.2)
[2018-03-07 03:19] LABS: ALB/GLOB RATIO 1.1 (1.0-2.1); ALBUMIN 4.5 g/dL (3.5-5.0); ALT/SGPT 94 U/L (21-72); AST/SGOT 221 U/L (17-59); BLOOD UREA NITROGEN 10 mg/dL (9-20); CALCIUM 8.5 mg/dl (8.6-10.4); GFR AFRICAN-AMERICAN > 60; GFR NON-AFRICAN AMERICAN > 60
--- NOTE | 2018-03-07 08:30 | RAD ---
PROCEDURE: CHEST RADIOGRAPH, 1 VIEW HISTORY: GI Bleeding COMPARISON: Comparison is made to 02/09/2018 FINDINGS: LUNGS: No evidence of new infiltrate or consolidation in the lungs PLEURA: No pneumothorax or pleural fluid seen. CARDIOVASCULAR: Normal. OSSEOUS STRUCTURES: No significant abnormalities. VISUALIZED UPPER ABDOMEN: Normal. OTHER FINDINGS: None. IMPRESSION: No active disease.
[2018-03-07] MEDS ORDERED: Multivitamin (MVI) 10 ML, Thiamine 100 MG, Folic Acid 1 MG in Sodium Chloride 0.9% 1,00... IV ONE (10:00)
--- NOTE | 2018-03-07 16:05 | CP.PCM.CON ---
<Sheri Zaidi - Last Filed: 03/07/18 16:01> History of Present Illness - History of Present Illness History of Present Illness: GI Fellow PGY4 Consult Note This is a 47yM with pmhx of alcohol and polysubstance abuse presenting to [facility] ER with complaints of one episode of coffee ground emesis and intoxication. Pt reports he drinks vodka daily and is currently living on the streets. Pt has had multiple admission for alcohol intoxication. Pt reports that he had multiple episodes of emesis followed by one episode of coffee ground. No more episodes. No prior hx of cirrhosis GI bleeding, or any endoscopic evaluation. ROS: A 12pt ROS was negative except as above PmHX: As stated in HPI PsHx: denies SHX: positive for etoh abuse, hard liquor since age 16, tobacco and illicit drugs use hx FHx: denies colon cancer Past Patient History - Infectious Disease Hx of Infectious Diseases: None - Past Medical History & Family History Past Medical History?: Yes - Past Social History Smoking Status: Heavy Smoker > 10 Cigarettes Daily - CARDIAC Hx Cardiac Disorders: No Hx Hypertension: No - PULMONARY Hx Respiratory Disorders: Yes Hx Asthma: Yes - NEUROLOGICAL Hx Neurological Disorder: No Hx Seizures: Yes - HEENT Hx HEENT Problems: No - RENAL Hx Chronic Kidney Disease: No - ENDOCRINE/METABOLIC Hx Endocrine Disorders: Yes Hx Diabetes Mellitus Type 2: Yes - HEMATOLOGICAL/ONCOLOGICAL Hx Blood Disorders: No Hx Human Immunodeficiency Virus (HIV): No - INTEGUMENTARY Hx Dermatological Problems: No - MUSCULOSKELETAL/RHEUMATOLOGICAL Hx Musculoskeletal Disorders: No Hx Falls: No - GASTROINTESTINAL Hx Gastrointestinal Disorders: No - GENITOURINARY/GYNECOLOGICAL Hx Genitourinary Disorders: No Hx Sexually Transmitted Disorders: No - PSYCHIATRIC Hx Psychophysiologic Disorder: Yes Hx Depression: Yes Hx Substance Use: Yes (Alcohol) - SURGICAL HISTORY Hx Surgeries: No - ANESTHESIA Hx Anesthesia: No Hx Anesthesia Reactions: No Hx Malignant Hyperthermia: No Meds Allergies/Adverse Reactions: Allergies Allergy/AdvReac Type Severity Reaction Status Date / Time No Known Allergies Allergy Verified 03/07/18 02:02 - Medications Medications: Current Medications Acetaminophen (Tylenol 325mg Tab) 650 mg PO Q4H PRN PRN Reason: pain fever Albuterol/Ipratropium (Duoneb 3 Mg/0.5 Mg (3 Ml) Ud) 3 ml IH RQ6 SHANEL Chlordiazepoxide (Librium) 25 mg PO Q6 SHANEL PRN Reason: Taper Stop: 03/11/18 11:59 Last Admin: 03/07/18 11:08 Dose: 25 mg Multivitamins/Vitamin C 10 ml/Thiamine HCl 100 mg/ Folic Acid 1 mg/ Sodium Chloride 1,011.2 mls @ 42 mls/hr IV .Q24H ONE Stop: 03/08/18 09:59 Last Admin: 03/07/18 10:30 Dose: 42 mls/hr Ondansetron HCl (Zofran Inj) 4 mg IVP Q6 PRN PRN Reason: Nausea/Vomiting Pantoprazole Sodium (Protonix Inj) 40 mg IVP DAILY [facility] Thiamine HCl (Vitamin B1 Tab) 100 mg PO DAILY [facility] Physical Exam - Constitutional Appears: Non-toxic, No Acute Distress, Confused - Head Exam Head Exam: ATRAUMATIC, NORMAL INSPECTION, NORMOCEPHALIC - Eye Exam Eye Exam: EOMI, Normal appearance Pupil Exam: NORMAL ACCOMODATION, PERRL - ENT Exam ENT Exam: Mucous Membranes Moist, Normal Exam - Respiratory Exam Respiratory Exam: Clear to Auscultation Bilateral, NORMAL BREATHING PATTERN - Cardiovascular Exam Cardiovascular Exam: Tachycardia, +S1, +S2 - GI/Abdominal Exam GI & Abdominal Exam: Normal Bowel Sounds, Soft. absent: Distended, Firm, Organomegaly, Tenderness - Rectal Exam Rectal Exam: Deferred - Extremities Exam Extremities exam: Positive for: full ROM, normal inspection - Back Exam Back exam: NORMAL INSPECTION - Neurological Exam Neurological exam: Alert, Oriented x3 - Psychiatric Exam Psychiatric exam: Normal Affect, Normal Mood - Skin Skin Exam: Dry, Intact, Normal Color, Warm Results - Vital Signs Recent Vital Signs: Last Vital Signs Temp 97.5 F L 03/07/18 06:06 Pulse 85 03/07/18 08:00 Resp 20 03/07/18 06:06 BP 123/82 03/07/18 06:06 Pulse Ox 95 03/07/18 06:06 - Labs Result Diagrams: 03/07/18 03:02 03/07/18 03:02 Labs: Laboratory Results - last 24 hr 03/07/18 03/07/18 03/07/18 01:59 03:02 03:02 WBC 4.3 L RBC 4.06 L Hgb 13.9 Hct 41.0 MCV 101.0 H MCH 34.2 H MCHC 33.8 RDW 13.7 Plt Count 124 L D MPV 7.7 Neut % (Auto) 45.0 L Lymph % (Auto) 40.9 H [place] % (Auto) 8.9 Eos % (Auto) 4.6 H Baso % (Auto) 0.6 Neut # (Auto) 1.9 Lymph # (Auto) 1.8 [place] # (Auto) 0.4 Eos # (Auto) 0.2 Baso # (Auto) 0.0 Differential Comment PT 9.8 INR 0.9 APTT 30 Sodium Potassium Chloride Carbon Dioxide Anion Gap BUN Creatinine Est GFR ( Amer) Est GFR (Non-Af Amer) POC Glucose (mg/dL) 80 Random Glucose Calcium Total Bilirubin AST ALT Alkaline Phosphatase Ammonia Total Protein Albumin Globulin Albumin/Globulin Ratio Stool Occult Blood Alcohol, Quantitative Blood Type Antibody Screen 03/07/18 03/07/18 03/07/18 03:02 03:02 03:02 WBC RBC Hgb Hct MCV MCH MCHC RDW Plt Count MPV Neut % (Auto) Lymph % (Auto) [place] % (Auto) Eos % (Auto) Baso % (Auto) Neut # (Auto) Lymph # (Auto) [place] # (Auto) Eos # (Auto) Baso # (Auto) Differential Comment PT INR APTT Sodium 147 Potassium 4.0 Chloride 106 Carbon Dioxide 21 L Anion Gap 24 H BUN 10 Creatinine 0.8 Est GFR ( Amer) > 60 Est GFR (Non-Af Amer) > 60 POC Glucose (mg/dL) Random Glucose 84 Calcium 8.5 L Total Bilirubin 0.6 AST 221 H D ALT 94 H D Alkaline Phosphatase 93 Ammonia 28 Total Protein 8.6 H Albumin 4.5 Globulin 4.1 H Albumin/Globulin Ratio 1.1 Stool Occult Blood Alcohol, Quantitative 388 H Blood Type O POSITIVE Antibody Screen Negative 03/07/18 03/07/18 03/07/18 03:18 06:10 06:13 WBC RBC Hgb Hct MCV MCH MCHC RDW Plt Count MPV Neut % (Auto) Lymph % (Auto) [place] % (Auto) Eos % (Auto) Baso % (Auto) Neut # (Auto) Lymph # (Auto) [place] # (Auto) Eos # (Auto) Baso # (Auto) Differential Comment PT INR APTT Sodium Potassium Chloride Carbon Dioxide Anion Gap BUN Creatinine Est GFR ( Amer) Est GFR (Non-Af Amer) POC Glucose (mg/dL) 63 L 61 L Random Glucose Calcium Total Bilirubin AST ALT Alkaline Phosphatase Ammonia Total Protein Albumin Globulin Albumin/Globulin Ratio Stool Occult Blood Negative Alcohol, Quantitative Blood Type Antibody Screen 03/07/18 03/07/18 06:35 11:01 WBC RBC Hgb Hct MCV MCH MCHC RDW Plt Count MPV Neut % (Auto) Lymph % (Auto) [place] % (Auto) Eos % (Auto) Baso % (Auto) Neut # (Auto) Lymph # (Auto) [place] # (Auto) Eos # (Auto) Baso # (Auto) Differential Comment PT INR APTT Sodium Potassium Chloride Carbon Dioxide Anion Gap BUN Creatinine Est GFR ( Amer) Est GFR (Non-Af Amer) POC Glucose (mg/dL) 99 102 Random Glucose Calcium Total Bilirubin AST ALT Alkaline Phosphatase Ammonia Total Protein Albumin Globulin Albumin/Globulin Ratio Stool Occult Blood Alcohol, Quantitative Blood Type Antibody Screen Assessment & Plan - Assessment and Plan (Free Text) Assessment: This is a 47yM presenting with complaints of etoh intoxication and coffee ground emesis. 1. Alcohol intoxication 2. Coffee ground emesis resolved Plan: -Continue supportive care with pain control and anti-emetics -Monitor for alcohol withdrawal -Monitor H/H, stable, no active GI bleeding, coffee ground emesis likely from gastritis, esophagitis, or cullen temple tear -Thiamine and folate supplement -Advance diet as tolerated -No plan for endoscopic evaluation at this time <Xiomara Castaneda - Last Filed: 03/07/18 16:17> Meds - Medications Medications: Current Medications Acetaminophen (Tylenol 325mg Tab) 650 mg PO Q4H PRN PRN Reason: pain fever Albuterol/Ipratropium (Duoneb 3 Mg/0.5 Mg (3 Ml) Ud) 3 ml IH RQ6 SHANEL Chlordiazepoxide (Librium) 25 mg PO Q6 SHANEL PRN Reason: Taper Stop: 03/11/18 11:59 Last Admin: 03/07/18 11:08 Dose: 25 mg Multivitamins/Vitamin C 10 ml/Thiamine HCl 100 mg/ Folic Acid 1 mg/ Sodium Chloride 1,011.2 mls @ 42 mls/hr IV .Q24H ONE Stop: 03/08/18 09:59 Last Admin: 03/07/18 10:30 Dose: 42 mls/hr Ondansetron HCl (Zofran Inj) 4 mg IVP Q6 PRN PRN Reason: Nausea/Vomiting Pantoprazole Sodium (Protonix Inj) 40 mg IVP DAILY [facility] Thiamine HCl (Vitamin B1 Tab) 100 mg PO DAILY SHANEL Results - Vital Signs Recent Vital Signs: Last Vital Signs Temp 97.5 F L 03/07/18 06:06 Pulse 85 03/07/18 08:00 Resp 20 03/07/18 06:06 BP 123/82 03/07/18 06:06 Pulse Ox 95 03/07/18 06:06 - Labs Result Diagrams: 03/07/18 03:02 03/07/18 03:02 Labs: Laboratory Results - last 24 hr 03/07/18 03/07/18 03/07/18 01:59 03:02 03:02 WBC 4.3 L RBC 4.06 L Hgb 13.9 Hct 41.0 MCV 101.0 H MCH 34.2 H MCHC 33.8 RDW 13.7 Plt Count 124 L D MPV 7.7 Neut % (Auto) 45.0 L Lymph % (Auto) 40.9 H [place] % (Auto) 8.9 Eos % (Auto) 4.6 H Baso % (Auto) 0.6 Neut # (Auto) 1.9 Lymph # (Auto) 1.8 [place] # (Auto) 0.4 Eos # (Auto) 0.2 Baso # (Auto) 0.0 Differential Comment PT 9.8 INR 0.9 APTT 30 Sodium Potassium Chloride Carbon Dioxide Anion Gap BUN Creatinine Est GFR ( Amer) Est GFR (Non-Af Amer) POC Glucose (mg/dL) 80 Random Glucose Calcium Total Bilirubin AST ALT Alkaline Phosphatase Ammonia Total Protein Albumin Globulin Albumin/Globulin Ratio Stool Occult Blood Alcohol, Quantitative Blood Type Antibody Screen 03/07/18 03/07/18 03/07/18 03:02 03:02 03:02 WBC RBC Hgb Hct MCV MCH MCHC RDW Plt Count MPV Neut % (Auto) Lymph % (Auto) [place] % (Auto) Eos % (Auto) Baso % (Auto) Neut # (Auto) Lymph # (Auto) [place] # (Auto) Eos # (Auto) Baso # (Auto) Differential Comment PT INR APTT Sodium 147 Potassium 4.0 Chloride 106 Carbon Dioxide 21 L Anion Gap 24 H BUN 10 Creatinine 0.8 Est GFR ( Amer) > 60 Est GFR (Non-Af Amer) > 60 POC Glucose (mg/dL) Random Glucose 84 Calcium 8.5 L Total Bilirubin 0.6 AST 221 H D ALT 94 H D Alkaline Phosphatase 93 Ammonia 28 Total Protein 8.6 H Albumin 4.5 Globulin 4.1 H Albumin/Globulin Ratio 1.1 Stool Occult Blood Alcohol, Quantitative 388 H Blood Type O POSITIVE Antibody Screen Negative 03/07/18 03/07/18 03/07/18 03:18 06:10 06:13 WBC RBC Hgb Hct MCV MCH MCHC RDW Plt Count MPV Neut % (Auto) Lymph % (Auto) [place] % (Auto) Eos % (Auto) Baso % (Auto) Neut # (Auto) Lymph # (Auto) [place] # (Auto) Eos # (Auto) Baso # (Auto) Differential Comment PT INR APTT Sodium Potassium Chloride Carbon Dioxide Anion Gap BUN Creatinine Est GFR ( Amer) Est GFR (Non-Af Amer) POC Glucose (mg/dL) 63 L 61 L Random Glucose Calcium Total Bilirubin AST ALT Alkaline Phosphatase Ammonia Total Protein Albumin Globulin Albumin/Globulin Ratio Stool Occult Blood Negative Alcohol, Quantitative Blood Type Antibody Screen 03/07/18 03/07/18 06:35 11:01 WBC RBC Hgb Hct MCV MCH MCHC RDW Plt Count MPV Neut % (Auto) Lymph % (Auto) [place] % (Auto) Eos % (Auto) Baso % (Auto) Neut # (Auto) Lymph # (Auto) [place] # (Auto) Eos # (Auto) Baso # (Auto) Differential Comment PT INR APTT Sodium Potassium Chloride Carbon Dioxide Anion Gap BUN Creatinine Est GFR ( Amer) Est GFR (Non-Af Amer) POC Glucose (mg/dL) 99 102 Random Glucose Calcium Total Bilirubin AST ALT Alkaline Phosphatase Ammonia Total Protein Albumin Globulin Albumin/Globulin Ratio Stool Occult Blood Alcohol, Quantitative Blood Type Antibody Screen Attending/Attestation - Attestation I have personally seen and examined this patient.: Yes I have fully participated in the care of the patient.: Yes I have reviewed all pertinent clinical information: Yes Notes (Text): 03/07/18 16:17 This is a 47 year old M presenting with complaints of ETOH intoxication and coffee ground emesis now resolved. H/Hct stable. . -Continue supportive care with pain control and anti-emetics -Monitor for alcohol withdrawal -Monitor H/H, stable, no active GI bleeding, coffee ground emesis likely from gastritis, esophagitis, or cullen temple tear -Thiamine and folate supplement -Advance diet as tolerated -No plan for endoscopic evaluation at this time
[2018-03-07 17:34] LABS: IRON 88 ug/dL (49-181)
[2018-03-07 17:43] LABS: % IRON SATURATION 37 (20-55); TOTAL IRON BINDING CAPACITY 242 ug/dL (250-450)
[2018-03-07] MEDS: Albuterol-Ipratrop 3 mg / 0.5 (3 ml) UD IH SCH (19:51)
[2018-03-07 22:18] LABS: URINE BILIRUBIN NEGATIVE (NEGATIVE); URINE BLOOD NEGATIVE (NEGATIVE); URINE CLARITY Clear (Clear); URINE COLOR Yellow (YELLOW); URINE GLUCOSE (UA) NORMAL (Normal); URINE LEUKOCYTE ESTERASE NEG Leu/uL (Negative); URINE PROTEIN 1+ mg/dL (NEGATIVE); URINE UROBILINOGEN NORMAL mg/dL (0.2-1.0)
[2018-03-07 22:33] LABS: BARBITURATES, UR NEGATIVE (NEGATIVE); BENZODIAZEPINES, UR POSITIVE (NEGATIVE); OPIATES, UR NEGATIVE (NEGATIVE); PHENCYCLIDINE, UR NEGATIVE (NEGATIVE)
[2018-03-08] MEDS: Albuterol-Ipratrop 3 mg / 0.5 (3 ml) UD IH SCH ×4 (01:25→19:13)
[2018-03-08 07:56] LABS: HEMOGLOBIN 12.4 g/dL (12.0-18.0); MEAN CELL VOLUME 100.8 fL (80.0-94.0); MEAN CORPUSCULAR HEMOGLOBIN 34.6 pg (27.0-31.0); MEAN CORPUSCULAR HGB CONC 34.3 g/dL (33.0-37.0); MEAN PLATELET VOLUME 8.1 fL (7.2-11.7); RBC 3.6 Mil/uL (4.40-5.90); RED CELL DISTRIBUTION WIDTH 13.5 % (11.5-14.5); WHITE BLOOD COUNT 2.7 K/uL (4.8-10.8)
[2018-03-08 08:15] LABS: BLOOD UREA NITROGEN 4 mg/dL (9-20); GFR AFRICAN-AMERICAN > 60; GFR NON-AFRICAN AMERICAN > 60
--- NOTE | 2018-03-08 08:57 | HP ---
CHIEF COMPLAINT: Vomiting of blood. HISTORY OF PRESENT ILLNESS: The patient is a 47-year-old male. He was brought to the emergency room by EMS for evaluation of vomiting of blood. The patient reports, he is a daily alcoholic drinker, and today, he noted vomiting blood which was not witnessed by EMS personnel. The patient feels he is dizzy. The patient denies chest pain, shortness of breath, palpitations, fever, headache. PAST MEDICAL HISTORY: Asthma, depression, seizures. FAMILY HISTORY: Father and mother noncontributory. HABITS: No smoking, no drugs, no ethanol. ALLERGIES: THE PATIENT IS NOT ALLERGIC WITH ANY MEDICATIONS. HOME MEDICATIONS: As reviewed by me. REVIEW OF SYSTEMS: The patient was seen and examined at the bedside, looking comfortable. No nausea, vomiting, diarrhea, hematuria, hematochezia. No swelling of the legs. No chest pain or palpitations. No headache, no dizziness. PHYSICAL EXAMINATION: VITAL SIGNS: Temperature 97.5, pulse 85, blood pressure 123/82, respiratory rate 20. HEENT: Head normocephalic, atraumatic. Eyes: PERRLA. Extraocular muscles intact. Conjunctivae clear. Nose patent. Mucous membranes moist. NECK: Supple. No carotid bruits, JVD, or thyromegaly. CHEST: Bilaterally symmetrical. HEART: S1 and S2 positive. LUNGS: Clear to auscultation. ABDOMEN: Soft. Bowel sounds positive. No organomegaly. EXTREMITIES: No edema, no cyanosis. NEUROLOGICAL: The patient is awake and alert, follows simple commands. LABORATORY DATA: White blood cell 4.3, hemoglobin 13.9, hematocrit 41, platelets 124, glucose 102, sodium 147, potassium 4, BUN 10, creatinine is 0.8, calcium 8.5. ASSESSMENT AND PLAN: The patient is a 47-year-old male with hypocalcemia, abnormal liver function tests, leukopenia, anemia, thrombocytopenia, stool occult negative. Alcohol level 388. Coagulation within normal limits. Came with upper GI bleeding, history of heavy ethanol abuse, rule out gastritis, alcohol intoxication, history of polysubstance abuse, ethanol abuse. The patient reports drinking vodka daily and currently living [address] after argument with his . The patient had multiple admissions for alcohol intoxication, multiple times he has episodes of emesis containing coffee-ground material. No prior history of cirrhosis, history of seizures, diabetes mellitus, depression, alcohol, substance abuse. We admitted the patient. GI consult called with Dr. iXomara Castaneda. Ethanol intoxication. Continue supportive care with pain control, antiemetics, monitoring for alcohol withdrawal. The patient is getting banana bag and thiamine. Monitor H and H, stable. No active GI bleeding. Coffee-ground emesis, likely from gastritis, esophagitis, thiamine and folate supplement provided. Advance diet as tolerated. No plan for endoscopy evaluation at this time. We will follow up as outpatient. Repeat labs. Psychiatrist is on the case. Also, GI is on the case. Starr Jose MD MTDD
--- NOTE | 2018-03-08 08:57 | HP ---
CHIEF COMPLAINT: Upper GI bleeding. HISTORY OF PRESENT ILLNESS: Mr. Kristine Kimbrough is a 47-year-old male, brought to the emergency room by EMS for evaluation of vomiting, blood. The patient reports that he is a daily drinker of alcohol. Today, he noticed vomiting blood which was not witnessed by EMS. the patient states that he gets dizzy. The patient denies chest pain, shortness of breath. No palpitations, no fever, no chills. No headache, and looks like the patient is intoxicated. The patient was not able to describe the quantity of alcohol he consumed. PAST MEDICAL HISTORY: Asthma, depression, seizures. PAST SURGICAL HISTORY: Not available. ALLERGIES: THE PATIENT IS NOT ALLERGIC WITH ANY MEDICATIONS. HOME MEDICATIONS: The patient denies. SOCIAL HISTORY: Tobacco, yes. Alcohol, yes. Substance abuse, yes. REVIEW OF SYSTEMS: The patient seen and examined on the bedside in his room. Negative fever, chills. Negative for vision changes. Negative for chest pain, palpitations. Negative shortness of breath. The patient is having vomiting of blood, abdominal pain, hematemesis. No dysuria, no back pain, no rash. Sometimes feeling dizzy but no weakness, numbness, or headache. No anxiety. PHYSICAL EXAMINATION: VITAL SIGNS: Temperature 98.6 pulse 20, blood pressure 115/82, pulse oximetry 94. HEENT: Head normocephalic, atraumatic. Eyes: PERRLA. Extraocular muscles intact. Conjunctivae clear. Nose patent. Mucous membranes moist. NECK: Supple. No carotid bruits, JVD, or thyromegaly. CHEST: Bilaterally symmetrical. HEART: S1 and S2 positive. LUNGS: Clear to auscultation. ABDOMEN: Soft. Bowel sounds positive. No organomegaly. EXTREMITIES: No edema, no cyanosis. NEUROLOGICAL: The patient is awake and alert, moving all 4 extremities. No focal deficit. LABS: White blood cell is 4.3, hemoglobin 13.9, hematocrit 41, platelets 124. Sodium 147, potassium 4, BUN 10, creatinine 0.8, glucose 84. ASSESSMENT AND PLAN: Mr. Kristine Kimbrough is a 47-year-old male with leukopenia, thrombocytopenia, came with gastrointestinal hemorrhage, abdominal pain, alcohol intoxication, history of asthma, depression, and seizures as per patient, may be alcohol-induced seizures. We admitted the patient. Chest x-ray done. GI consult called with Dr. Jc Ivey, and Dr. Moura because of alcoholic problem, started the patient on Librium and banana bag. We will give Protonix. Gastrointestinal/deep venous thrombosis prophylaxis. Repeat labs. Starr Jose MD MTDAlize
--- NOTE | 2018-03-08 12:01 | PCM.PSYCH ---
Initial Psychiatric Evaluation - Initial Psychiatric Evaluation Type of Admission: Voluntary Legal Status: Capacity Chief Complaint (in patient's own words): "Alcohol" History of Present Illness and Precipitating Events: The patient is seen, chart reviewed and case discussed. Consultation is requested for his alcohol use. The patient is using about about 1 pint of alcohol every day for the last 30 years. He was in detox "long ago" and one time only. He knows [facility] but it is not clear how many times he has been there. He says he doesn' t remember. He denies all drug use and he denies psychiatric symptoms. He smokes 2 packs per day cigarettes No past psych history Family psych history significant for both parents used to drink alcohol Medical history significant for asthma and GI bleed which is why he is admitted Socially, he lives in [facility], with 2 adult children, unemployed Current Medications: Active Medications Generic Name Dose Route Start Last Admin Trade Name Freq PRN Reason Stop Dose Admin Acetaminophen 650 mg 03/07/18 15:43 Tylenol 325mg Tab PO Q4H PRN pain fever Albuterol/Ipratropium 3 ml 03/07/18 15:45 03/08/18 07:16 Duoneb 3 Mg/0.5 Mg (3 Ml) Ud IH 3 ml RQ6 SHANEL Administration Chlordiazepoxide 25 mg 03/07/18 12:00 03/08/18 07:26 Librium PO 03/11/18 11:59 Not Given TID SHANEL Taper Ondansetron HCl 4 mg 03/07/18 15:43 Zofran Inj IVP Q6 PRN Nausea/Vomiting Pantoprazole Sodium 40 mg 03/07/18 15:45 03/08/18 09:15 Protonix Inj IVP 40 mg DAILY SHANEL Administration Pneumococcal Polyvalent Vaccine 0.5 ml 03/08/18 14:00 Pneumovax 23 Vaccine IM 03/08/18 14:01 .ONCE ONE Thiamine HCl 100 mg 03/08/18 10:00 03/08/18 09:15 Vitamin B1 Tab PO 100 mg DAILY SHANEL Administration Past Psychiatric History - Past Psychiatric History Previous Treatment History: None Pertinent Medical Hx (Current Medical&Sleep Prob, Allergies): Allergies Allergy/AdvReac Type Severity Reaction Status Date / Time No Known Allergies Allergy Verified 03/07/18 02:02 No Known Home Med 03/01/18 Review of Systems - Psychiatric Psychiatric: Abnormal Sleep Pattern, Anxiety, Difficulty Concentrating. absent : Depression, Homicidal Ideation, Paranoia, Suicidal Ideation Mental Status Examination - Personal Presentation Personal Presentation: Looks older than stated age - Affect Affect: Broad - Motor Activity Motor Activity: Calm - Reliability in Providing Information Reliability in Providing Information: Good - Speech Speech: Organized - Mood Mood: Anxious - Formal Thought Process Formal Thought Process: No Impairment - Cognitive Functions Orientation: Person, Place, Situation, Time Sensorium: Alert Attention/Concentration: Attentive Estimate of Intelligence: Average Judgement: Intact, as evidence by: Insight regarding need for hospitalization Memory: Recent intact, as evidence by: Ability to recall events of the day, Remote intact, as evidenced by: Abilit to recall sig. life events - Risk Risk: Withdrawal, Diminished functioning - Strength & Assets Inventory Strength & Assets Inventory: Cooperative - Limitations Limitations: Living alone DSM 5 DX - DSM 5 DSM 5 Diagnosis: alcohol withdrawal Alcohol use disorder, severe - Recommended/Plan of Treatment Treatment Recommendations and Plan of Treatment: Taper withLibrium started Gabapentin for augmentation if needed As needed medications All risks, benefits and alternatives of the meds discussed, and the pt agreed and understood. Supportive therapy and psychoeducation NH for abstinence CBT for relapse prevention Refer to rehab or IOP, and self-help groups Smoking cessation with NH Nicotine patch if needed psych will sign off 34 min
[2018-03-08] MEDS ORDERED: Pneumococcal 23-Valent Vaccine IM ONE (14:00)
[2018-03-08 15:21] VITALS: RESP 20
[2018-03-09] MEDS: Albuterol-Ipratrop 3 mg / 0.5 (3 ml) UD IH SCH (01:16)
--- NOTE | 2018-03-09 02:10 | CARD ---
APPROVED REPORT EKG Measurement Heart [id number] <Conclusion> Normal sinus rhythm Normal ECG
--- NOTE | 2018-03-09 04:20 | PN ---
DATE: SUBJECTIVE: The patient is a 47-year-old male. The patient is seen and examined at the bedside, looking comfortable, tolerating food very well. No nausea, vomiting, diarrhea, hematuria, or hematochezia. No more swelling of the leg. No more vomiting. PHYSICAL EXAMINATION: VITAL SIGNS: Temperature 98.2, pulse of 89, blood pressure 135/85, respiratory rate 20. HEENT: Head normocephalic, atraumatic. Eyes: PERRLA. Extraocular muscles intact. Conjunctivae clear. Nose patent. Mucous membranes moist. NECK: Supple. No carotid bruits, JVD, or thyromegaly. CHEST: Bilaterally symmetrical. HEART: S1 and S2 positive. LUNGS: Clear to auscultation. ABDOMEN: Soft. Bowel sounds positive. No organomegaly. EXTREMITIES: No edema, no cyanosis. NEUROLOGICAL: The patient is awake and alert, moving all 4 extremities. No focal deficit. MEDICATIONS: Trazodone, DuoNeb, Librium, Protonix, Tylenol, thiamine, Zofran. LABORATORY DATA: White blood cell 2.6, hemoglobin 12.4, hematocrit 36.3, platelet count 90. Sodium 135, potassium 3.4, BUN 4, creatinine 0.8, glucose 74, calcium 8. ASSESSMENT AND PLAN: Hypokalemia, replaced. Hypocalcemia, leukopenia, anemia, proteinuria. Stool occult blood negative. Alcohol content was 388, seen by the psychiatrist because of ethanol abuse and for detoxification. Gastrointestinal and deep venous thrombosis prophylaxis. Repeat labs. Seen by Dr. Jc Ivey, did the upper endoscopy, found the patient has gastric duodenitis and esophagitis. Also asked to quit alcohol and smoking. Repeat labs. We will follow up. Starr Jose MD
[2018-03-09 07:43] VITALS: BP 102/73; TEMP 97.9; O2SAT 98
[2018-03-09 08:17] VITALS: PULSE 73
[2018-03-09] MEDS ORDERED: Potassium Chloride 20 mEq ER Tab PO ONE (12:05)
== END 2018-03-09 13:35 | disposition home or self-care (01) | DRG 750 ==
LOC: C.ER 01:42 → C.5S 04:27
PROVIDERS: ADMIT Internal Medicine; ATTEND Internal Medicine
PROC: HZ2ZZZZ Detoxification Services for Substance Abuse Treatment (ICD-10-PCS; principal; 2018-03-07)
PROC: HZ52ZZZ Individual Psychotherapy for Substance Abuse Treatment, Cognitive-Behavioral (ICD-10-PCS; 2018-03-07)
PROC: HZ59ZZZ Individual Psychotherapy for Substance Abuse Treatment, Supportive (ICD-10-PCS; 2018-03-07)
PROC: HZ56ZZZ Individual Psychotherapy for Substance Abuse Treatment, Psychoeducation (ICD-10-PCS; 2018-03-07)
DX: F10.239 Alcohol dependence with withdrawal, unspecified (principal); E87.6 Hypokalemia; R56.9 Unspecified convulsions; D69.6 Thrombocytopenia, unspecified; F17.210 Nicotine dependence, cigarettes, uncomplicated; J45.909 Unspecified asthma, uncomplicated; K20.9 Esophagitis, unspecified; K29.70 Gastritis, unspecified, without bleeding; K29.80 Duodenitis without bleeding; Y90.8 Blood alcohol level of 240 mg/100 ml or more; F45.9 Somatoform disorder, unspecified; D64.9 Anemia, unspecified; E11.9 Type 2 diabetes mellitus without complications; E83.51 Hypocalcemia; D72.819 Decreased white blood cell count, unspecified

== ENCOUNTER 2018-03-09 19:05 | Emergency (ER) | payer MEDICAID ==
[2018-03-09 19:05] VITALS: BMI 22.9
--- NOTE | 2018-03-09 21:10 | C.PDOC ---
History Of Present Illness 47 y/o male presents to ED requesting ETOH detox. Patient was admitted to hospital 03/07-03/08 for observation of claimed "hematemesis". Patient had stable hemoglobin and upper endoscopy that showed gastritis. No physical complaints at this time. Time Seen by Provider: 03/09/18 20:59 Chief Complaint (Nursing): Substance Abuse History Per: Patient History/Exam Limitations: no limitations Onset/Duration Of Symptoms: Days Current Symptoms Are (Timing): Still Present Suicide/Self Injury Attempted (Context): None Modifying Factor(s): Alcohol Past Medical History Reviewed: Historical Data, Nursing Documentation, Vital Signs Vital Signs: Last Vital Signs Temp 98 F 03/09/18 21:27 Pulse 84 03/09/18 21:27 Resp 20 03/09/18 21:27 BP 135/76 03/09/18 21:27 Pulse Ox 98 03/09/18 21:27 - Medical History PMH: Asthma, Depression, Seizures Surgical History: No Surg Hx - [facility] Procedures DETOXIFICATION SERVICES FOR SUBSTANCE ABUSE TREATMENT (02/09/18) GROUP CROSSTIE INSPECTOR FOR SUBSTANCE ABUSE TREATMENT, PSYCHOEDUCATION (02/09/18) INDIV PSYCHOTHERAPY FOR SUBSTANCE ABUSE TREATMENT, SUPPORT (02/09/18) Family History: States: No Known Family Hx - Social History Hx Tobacco Use: Yes Hx Alcohol Use: Yes (VODAK) Hx Substance Use: Yes - Immunization History Hx Tetanus Toxoid Vaccination: Yes Hx Influenza Vaccination: Yes Hx Pneumococcal Vaccination: No Review Of Systems Constitutional: Negative for: Fever, Chills Cardiovascular: Negative for: Chest Pain Respiratory: Negative for: Shortness of Breath Gastrointestinal: Negative for: Nausea, Vomiting Skin: Negative for: Rash Psych: Positive for: Other (Etoh intoxication) Physical Exam - Physical Exam Appears: Non-toxic, Other (ETOH on breath, intoxicated) Skin: Warm, Dry, No Rash Head: Atraumatic, Normacephalic Eye(s): bilateral: Normal Inspection Oral Mucosa: Moist Neck: Normal ROM, Supple Cardiovascular: Rhythm Regular Respiratory: Normal Breath Sounds, No Rales, No Rhonchi, No Wheezing Gastrointestinal/Abdominal: Soft, No Tenderness, No Guarding, No Rebound Extremity: Normal ROM, Capillary Refill (<2 seconds) Neurological/Psych: Oriented x3, Normal Speech, Normal Cognition Gait: Steady ED Course And Treatment O2 Sat by Pulse Oximetry: 100 (RA) Pulse Ox Interpretation: Normal Medical Decision Making Medical Decision Making: persistent homeless, lives @ long-term, seeking detox, but not available tonight pt re-instructed to call for availability. Denies further hematemasis nor dark stools. Disposition Doctor Will See Patient In The: Office Counseled Patient/Family Regarding: Studies Performed, Diagnosis - Disposition Referrals: Alcoholics Anonymous [Outside] [facility] [Outside] [facility] [Outside] [facility] [place] [Outside] [facility] [Outside] [facility] [Outside] Disposition: HOME/ ROUTINE Disposition Time: 21:10 Condition: GOOD Additional Instructions: call for availability of alcohol detox: MUST be arranged IN ADVANCED Instructions: Alcohol Abuse and Alcoholism (DC) Forms: [employer] (Romanian) - Clinical Impression Clinical Impression: Alcohol dependence - Scribe Statement The provider has reviewed the documentation as recorded by the Scribe Jairo Guzman All medical record entries made by the Scribe were at my direction and personally dictated by me. I have reviewed the chart and agree that the record accurately reflects my personal performance of the history, physical exam, medical decision making, and the department course for this patient. I have also personally directed, reviewed, and agree with the discharge instructions and disposition.
[2018-03-09 21:28] VITALS: BP 135/76; PULSE 84; RESP 20; TEMP 98
[2018-03-09 21:46] VITALS: O2SAT 100
== END 2018-03-09 21:28 | disposition home or self-care (01) ==
LOC: C.ER 19:05
DX: F10.20 Alcohol dependence, uncomplicated (principal)

== ENCOUNTER 2018-03-10 23:25 | Emergency (ER) | payer MEDICAID ==
[2018-03-10 23:25] VITALS: BMI 22.9
--- NOTE | 2018-03-10 23:50 | C.PDOC ---
History Of Present Illness Patient is a 47 y/o male who presents to the ED with acute EtOH intoxication. Patient admits to drinking at a bar [employer]. Patient is a frequent ED visitor for similar complaints. Denies any physical complaints at this time. Time Seen by Provider: 03/10/18 23:49 Chief Complaint (Nursing): Substance Abuse History Per: Patient History/Exam Limitations: no limitations Onset/Duration Of Symptoms: Hrs, Waxing/Waning Suicide/Self Injury Attempted (Context): None Modifying Factor(s): Alcohol Recent travel outside of the [place]: No Past Medical History Reviewed: Historical Data, Nursing Documentation, Vital Signs Vital Signs: Last Vital Signs Temp 97 F L 03/11/18 04:10 Pulse 64 03/11/18 04:10 Resp 20 03/11/18 04:10 BP 112/60 03/11/18 04:10 Pulse Ox 97 03/11/18 04:10 - Medical History PMH: Asthma, Depression, Seizures Denies: HIV, HTN, Chronic Kidney Disease, Sexually Transmitted Disease Surgical History: No Surg Hx - [facility] Procedures DETOXIFICATION SERVICES FOR SUBSTANCE ABUSE TREATMENT (03/07/18) GROUP APARTMENT MAINTENANCE MANAGER FOR SUBSTANCE ABUSE TREATMENT, PSYCHOEDUCATION (02/09/18) INDIV PSYCHOTHERAPY FOR SUBSTANCE ABUSE TREATMENT, SUPPORT (03/07/18) INDIV PSYCHOTHERAPY FOR SUBSTANCE ABUSE, COGNITIV BEHAVIORAL (03/07/18) INDIV PSYCHOTHERAPY FOR SUBSTANCE ABUSE, PSYCHOEDUCATION (03/07/18) Family History: States: No Known Family Hx - Social History Hx Tobacco Use: Yes Hx Alcohol Use: Yes (VODKA) Hx Substance Use: Yes - Immunization History Hx Tetanus Toxoid Vaccination: Yes Hx Influenza Vaccination: Yes Hx Pneumococcal Vaccination: No Review Of Systems Neurological: Positive for: Other (EtOH intoxication) Physical Exam - Physical Exam Appears: Well, Non-toxic, No Acute Distress Skin: Warm, Dry Head: Normacephalic Eye(s): bilateral: Normal Inspection Oral Mucosa: Moist Cardiovascular: Rhythm Regular, No Murmur Respiratory: No Decreased Breath Sounds, No Rales, No Rhonchi, No Wheezing Gastrointestinal/Abdominal: Soft, No Tenderness Neurological/Psych: Oriented x3, Normal Speech, Normal Cognition ED Course And Treatment O2 Sat by Pulse Oximetry: 98 Pulse Ox Interpretation: Normal Progress Note: Patient to be discharged upon sobriety. Reevaluation Time: 05:16 Reassessment Condition: Improved Disposition Counseled Patient/Family Regarding: Studies Performed, Diagnosis, Need For Followup - Disposition Referrals: [facility] [Outside] Disposition: HOME/ ROUTINE Disposition Time: 23:50 Condition: FAIR Instructions: Alcohol Abuse and Alcoholism (DC) Forms: [employer] (Belarusian) - Clinical Impression Clinical Impression: Alcohol intoxication, Alcohol abuse - Scribe Statement The provider has reviewed the documentation as recorded by the Scribe Mine Gillette All medical record entries made by the Ronnyibe were at my direction and personally dictated by me. I have reviewed the chart and agree that the record accurately reflects my personal performance of the history, physical exam, medical decision making, and the department course for this patient. I have also personally directed, reviewed, and agree with the discharge instructions and disposition.
[2018-03-11 04:11] VITALS: RESP 20
[2018-03-11 05:29] VITALS: BP 119/69; PULSE 87; TEMP 97.3; O2SAT 97
== END 2018-03-11 05:29 | disposition home or self-care (01) ==
LOC: C.ER 23:25
DX: F10.129 Alcohol abuse with intoxication, unspecified (principal); Y90.9 Presence of alcohol in blood, level not specified

== ENCOUNTER 2018-03-12 00:48 | Emergency (ER) | payer MEDICAID ==
[2018-03-12 00:48] VITALS: BMI 22.9
[2018-03-12 01:06] VITALS: RESP 18
--- NOTE | 2018-03-12 01:09 | C.PDOC ---
History Of Present Illness Patient is a 47 y/o male who presents to the ED with a complaint of acute EtOH requesting a place to stay. Admits to drinking alcohol today but states he is not sure if wants a detox; denies any physical complaints at this time. Time Seen by Provider: 03/12/18 01:09 Chief Complaint (Nursing): Substance Abuse History Per: Patient History/Exam Limitations: no limitations Onset/Duration Of Symptoms: Hrs Current Symptoms Are (Timing): Still Present Suicide/Self Injury Attempted (Context): None Modifying Factor(s): Alcohol Past Medical History Reviewed: Historical Data, Nursing Documentation, Vital Signs Vital Signs: Last Vital Signs Temp 98.2 F 03/12/18 01:00 Pulse 76 03/12/18 01:00 Resp 18 03/12/18 01:00 BP 136/84 03/12/18 01:00 Pulse Ox 98 03/12/18 02:04 - Medical History PMH: Asthma, Depression, Seizures Denies: HIV, HTN, Chronic Kidney Disease, Sexually Transmitted Disease Surgical History: No Surg Hx - [facility] Procedures DETOXIFICATION SERVICES FOR SUBSTANCE ABUSE TREATMENT (03/07/18) GROUP PLASTIC PRODUCTION MACHINE SETTER FOR SUBSTANCE ABUSE TREATMENT, PSYCHOEDUCATION (02/09/18) INDIV PSYCHOTHERAPY FOR SUBSTANCE ABUSE TREATMENT, SUPPORT (03/07/18) INDIV PSYCHOTHERAPY FOR SUBSTANCE ABUSE, COGNITIV BEHAVIORAL (03/07/18) INDIV PSYCHOTHERAPY FOR SUBSTANCE ABUSE, PSYCHOEDUCATION (03/07/18) Family History: States: Unknown Family Hx - Social History Hx Tobacco Use: Yes Hx Alcohol Use: Yes (VODKA) Hx Substance Use: Yes - Immunization History Hx Tetanus Toxoid Vaccination: Yes Hx Influenza Vaccination: Yes Hx Pneumococcal Vaccination: No Review Of Systems Constitutional: Negative for: Fever, Chills, Sweats Cardiovascular: Negative for: Chest Pain Respiratory: Negative for: Cough, Shortness of Breath Gastrointestinal: Negative for: Nausea, Vomiting, Diarrhea Psych: Positive for: Other (EtOH intoxication ) Physical Exam - Physical Exam Appears: Non-toxic, No Acute Distress Skin: Warm, Dry Head: Normacephalic Eye(s): bilateral: Normal Inspection Oral Mucosa: Moist Cardiovascular: Rhythm Regular Respiratory: Normal Breath Sounds, No Rales, No Rhonchi, No Wheezing Gastrointestinal/Abdominal: Soft, No Tenderness Extremity: Normal ROM (x4) Neurological/Psych: Oriented x3 Gait: Steady ED Course And Treatment O2 Sat by Pulse Oximetry: 98 (RA) Pulse Ox Interpretation: Normal Reevaluation Time: 05:06 Reassessment Condition: Improved Disposition Counseled Patient/Family Regarding: Studies Performed, Diagnosis, Need For Followup - Disposition Referrals: [facility] [Outside] Disposition: HOME/ ROUTINE Disposition Time: 01:09 Condition: FAIR Instructions: Alcohol Abuse and Alcoholism (DC) Forms: [employer] (Ecuadorean) - Clinical Impression Clinical Impression: Alcohol intoxication, Alcohol abuse - Scribe Statement Scribe Attestation: Documented by Benedict Prakash, acting as a scribe for Dr. Dorys Swartz. Provider Scribe Attestation: All medical record entries made by the Scribe were at my direction and personally dictated by me. I have reviewed the chart and agree that the record accurately reflects my personal performance of the history, physical exam, medical decision making, and the department course for this patient. I have also personally directed, reviewed, and agree with the discharge instructions and disposition.
[2018-03-12 05:13] VITALS: BP 128/79; PULSE 74; TEMP 98; O2SAT 99
== END 2018-03-12 05:13 | disposition home or self-care (01) ==
LOC: C.ER 00:48 → SUPCPDRO 00:48 → C.ER 05:13
DX: F10.129 Alcohol abuse with intoxication, unspecified (principal); Y90.9 Presence of alcohol in blood, level not specified

== ENCOUNTER 2018-03-13 19:51 | Emergency (ER) | payer MEDICAID ==
[2018-03-13 19:55] VITALS: BMI 25.7
[2018-03-13 20:01] VITALS: BP 128/88; PULSE 94; RESP 18; TEMP 98; O2SAT 100
--- NOTE | 2018-03-13 20:11 | C.PDOC ---
History Of Present Illness 47 year old male, who is well known in the ED for frequent presentation concerning alcohol related issues, presents to the ED for evaluation of substance abuse. Patient also presents with vague complaints of right sided flank pain. Patient denies fever, chills, trauma. Chief Complaint (Nursing): Substance Abuse History Per: Patient History/Exam Limitations: no limitations Onset/Duration Of Symptoms: Hrs Current Symptoms Are (Timing): Still Present Suicide/Self Injury Attempted (Context): None Modifying Factor(s): Alcohol Associated Symptoms: denies: Suicidal Thoughts, Suicidal Plan Involuntary Hold By: None Recent travel outside of the [place]: No Past Medical History Reviewed: Historical Data, Nursing Documentation, Vital Signs Vital Signs: Last Vital Signs Temp 98.0 F 03/13/18 19:55 Pulse 94 H 03/13/18 19:55 Resp 18 03/13/18 19:55 BP 128/88 03/13/18 19:55 Pulse Ox 100 03/13/18 22:00 - Medical History PMH: Asthma, Depression, Seizures Denies: HIV, HTN, Chronic Kidney Disease, Sexually Transmitted Disease Surgical History: No Surg Hx - [facility] Procedures DETOXIFICATION SERVICES FOR SUBSTANCE ABUSE TREATMENT (03/07/18) GROUP SQL DEVELOPER FOR SUBSTANCE ABUSE TREATMENT, PSYCHOEDUCATION (02/09/18) INDIV PSYCHOTHERAPY FOR SUBSTANCE ABUSE TREATMENT, SUPPORT (03/07/18) INDIV PSYCHOTHERAPY FOR SUBSTANCE ABUSE, COGNITIV BEHAVIORAL (03/07/18) INDIV PSYCHOTHERAPY FOR SUBSTANCE ABUSE, PSYCHOEDUCATION (03/07/18) Family History: States: Unknown Family Hx - Social History Hx Tobacco Use: Yes Hx Alcohol Use: Yes (VODKA) Hx Substance Use: Yes - Immunization History Hx Tetanus Toxoid Vaccination: Yes Hx Influenza Vaccination: Yes Hx Pneumococcal Vaccination: No Review Of Systems Musculoskeletal: Positive for: Other (right-sided flank pain ) Psych: Positive for: Other (alcohol intoxication ) Physical Exam - Physical Exam Appears: Non-toxic, No Acute Distress, Other (boisterous ) Skin: Normal Color, Warm, Dry Head: Atraumatic, Normacephalic Eye(s): bilateral: Normal Inspection Oral Mucosa: Moist, Other (alcohol on breath ) Neck: Supple Chest: Symmetrical, No Deformity, No Tenderness Cardiovascular: Rhythm Regular, No Murmur, Other (S1 and S2 within normal limits ) Respiratory: Normal Breath Sounds, No Rales, No Rhonchi, No Wheezing Gastrointestinal/Abdominal: Soft, No Tenderness, No Guarding, No Rebound Back: No CVA Tenderness, Other (mild right sided flank discomfort on palpation ) Extremity: Normal ROM, Capillary Refill (less than 2 seconds ) Neurological/Psych: No Normal Speech (slurred), Other (alert, arousable to touch and verbal stimuli ) ED Course And Treatment O2 Sat by Pulse Oximetry: 100 (on RA) Pulse Ox Interpretation: Normal Medical Decision Making Medical Decision Making: Impression: alcoholism vs chronic right-sided flank pain of unknown etiology Disposition - Disposition Disposition: HOME/ ROUTINE Disposition Time: 20:11 Condition: FAIR Instructions: Flank Pain, Alcohol Abuse and Alcoholism (DC) Forms: [employer] (Emirati) - Clinical Impression Clinical Impression: Alcohol dependence, Flank pain - Scribe Statement The provider has reviewed the documentation as recorded by the Scribe (Jessica Miller) Provider Attestation: All medical record entries made by the Scribe were at my direction and personally dictated by me. I have reviewed the chart and agree that the record accurately reflects my personal performance of the history, physical exam, medical decision making, and the department course for this patient. I have also personally directed, reviewed, and agree with the discharge instructions and disposition.
== END 2018-03-13 20:30 | disposition home or self-care (01) ==
LOC: C.ER 19:51
DX: F10.20 Alcohol dependence, uncomplicated (principal); R10.9 Unspecified abdominal pain; Z72.0 Tobacco use

== ENCOUNTER 2018-03-14 18:50 | Emergency (ER) | payer MEDICAID ==
[2018-03-14 18:50] VITALS: BMI 25.7
--- NOTE | 2018-03-14 19:18 | C.PDOC ---
History Of Present Illness 47yo male, brought to ER by EMS for evaluation after finding him publicly intoxicated. Patient presents to ED with a c-collar in place. He denies any head injury, loss of consciousness. Patient has no medical complaints. Time Seen by Provider: 03/14/18 19:11 Chief Complaint (Nursing): Substance Abuse History Per: Patient History/Exam Limitations: no limitations Onset/Duration Of Symptoms: Hrs Current Symptoms Are (Timing): Still Present Modifying Factor(s): Alcohol Past Medical History Reviewed: Historical Data, Nursing Documentation, Vital Signs Vital Signs: Last Vital Signs Temp 97.8 F 03/14/18 19:21 Pulse 84 03/14/18 19:21 Resp 16 03/14/18 19:21 BP 115/76 03/14/18 19:21 Pulse Ox 98 03/14/18 19:21 - Medical History PMH: Asthma, Depression, Seizures Denies: HIV, HTN, Chronic Kidney Disease, Sexually Transmitted Disease Surgical History: No Surg Hx - [facility] Procedures DETOXIFICATION SERVICES FOR SUBSTANCE ABUSE TREATMENT (03/07/18) GROUP SUPERVISOR TANK STORAGE FOR SUBSTANCE ABUSE TREATMENT, PSYCHOEDUCATION (02/09/18) INDIV PSYCHOTHERAPY FOR SUBSTANCE ABUSE TREATMENT, SUPPORT (03/07/18) INDIV PSYCHOTHERAPY FOR SUBSTANCE ABUSE, COGNITIV BEHAVIORAL (03/07/18) INDIV PSYCHOTHERAPY FOR SUBSTANCE ABUSE, PSYCHOEDUCATION (03/07/18) Family History: States: Unknown Family Hx - Social History Hx Tobacco Use: Yes Hx Alcohol Use: Yes (VODKA) Hx Substance Use: Yes - Immunization History Hx Tetanus Toxoid Vaccination: Yes Hx Influenza Vaccination: Yes Hx Pneumococcal Vaccination: No Review Of Systems Except As Marked, All Systems Reviewed And Found Negative. Psych: Positive for: Other (alcohol use) Physical Exam - Physical Exam Appears: Non-toxic, No Acute Distress Skin: Warm, Dry Head: Atraumatic, Normacephalic Eye(s): bilateral: Normal Inspection Neck: Supple, Other (c-collar in place, backwards and upside down) Cardiovascular: Rhythm Regular Respiratory: Normal Breath Sounds Gastrointestinal/Abdominal: Normal Exam Neurological/Psych: Oriented x3 Gait: Steady ED Course And Treatment O2 Sat by Pulse Oximetry: 97 (RA) Pulse Ox Interpretation: Normal Medical Decision Making Medical Decision Making: alcohol abuse no acute issues Disposition Doctor Will See Patient In The: Office Counseled Patient/Family Regarding: Studies Performed, Diagnosis - Disposition Referrals: Alcoholics Anonymous [Outside] [facility] [Outside] [facility] [Outside] [facility] [Outside] Disposition: HOME/ ROUTINE Disposition Time: 19:17 Condition: GOOD Additional Instructions: stop alcohol abuse seek AA Seek daily retirement placement. Instructions: Alcohol Abuse and Alcoholism (DC) Forms: [employer] (Divehi) - Clinical Impression Clinical Impression: Alcohol abuse - Scribe Statement The provider has reviewed the documentation as recorded by the Scribe (Mer Richards) Provider Attestation: All medical record entries made by the Scribe were at my direction and personally dictated by me. I have reviewed the chart and agree that the record accurately reflects my personal performance of the history, physical exam, medical decision making, and the department course for this patient. I have also personally directed, reviewed, and agree with the discharge instructions and disposition.
[2018-03-14 19:32] VITALS: BP 115/76; PULSE 84; RESP 16; TEMP 97.8
[2018-03-14 19:40] VITALS: O2SAT 97
== END 2018-03-14 19:32 | disposition home or self-care (01) ==
LOC: C.ER 18:50
DX: F10.10 Alcohol abuse, uncomplicated (principal); Y90.9 Presence of alcohol in blood, level not specified

== ENCOUNTER 2018-03-15 10:56 | Emergency (ER) | payer MEDICAID ==
[2018-03-15 10:57] VITALS: BMI 25.7
[2018-03-15 11:02] VITALS: BP 136/79; PULSE 84; RESP 18; TEMP 98.1; O2SAT 97
--- NOTE | 2018-03-15 12:12 | CT ---
PROCEDURE: CT HEAD WITHOUT CONTRAST. HISTORY: etoh COMPARISON: None available. TECHNIQUE: Axial computed tomography images were obtained through the head/brain without intravenous contrast. Radiation dose: Total exam DLP = 798.29 mGy-cm. This CT exam was performed using one or more of the following dose reduction techniques: Automated exposure control, adjustment of the mA and/or kV according to patient size, and/or use of iterative reconstruction technique. FINDINGS: HEMORRHAGE: No intracranial hemorrhage. BRAIN: No mass effect or edema. No evidence of acute infarct. No significant atrophy. No significant white matter ischemic change. There is a globular calcification seen along the anterior falx cerebrum, likely dystrophic. Cannot rule out small falx meningioma. VENTRICLES: Unremarkable. No hydrocephalus. CALVARIUM: Unremarkable. PARANASAL SINUSES: Mild chronic ethmoid and bilateral maxillary sinusitis. MASTOID AIR CELLS: Unremarkable as visualized. No inflammatory changes. OTHER FINDINGS: None. IMPRESSION: No intracranial mass, hemorrhage or evidence of acute infarct. Probable dystrophic calcification along the anterior falx cerebrum. Cannot rule out small falx meningioma. Mild chronic ethmoid and bilateral maxillary sinusitis.
[2018-03-15] MEDS ORDERED: Sodium Chloride 0.9% 1,000 ML IV ONE (13:55)
[2018-03-15] MEDS ORDERED: Thiamine 100 mg/ml Inj IV ONE (13:56)
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
--- NOTE | 2018-03-15 14:27 | RAD ---
PROCEDURE: CHEST RADIOGRAPH, 1 VIEW HISTORY: SOB COMPARISON: 03/07/2018 FINDINGS: LUNGS: There is linear opacity at left base likely representing platelike atelectasis. . There is associated mild elevation of the left hemidiaphragm. This represents interval change compared to the prior examination. There is no pulmonary infiltrate. PLEURA: No pneumothorax or pleural fluid seen. CARDIOVASCULAR: Normal. OSSEOUS STRUCTURES: No significant abnormalities. VISUALIZED UPPER ABDOMEN: Normal. OTHER FINDINGS: None. IMPRESSION: Left basilar linear atelectasis with elevated left hemidiaphragm. No acute infiltrate.
== END 2018-03-15 14:38 | disposition home or self-care (01) ==
LOC: C.ER 10:56
DX: S09.90XA Unspecified injury of head, initial encounter (principal); F10.129 Alcohol abuse with intoxication, unspecified; Y04.0XXA Assault by unarmed brawl or fight, initial encounter; Z72.0 Tobacco use

== ENCOUNTER 2018-03-16 22:40 | Emergency (ER) | payer MEDICAID ==
[2018-03-16 22:41] VITALS: BMI 25.7
[2018-03-16 22:46] VITALS: BP 124/85; PULSE 84; RESP 18; TEMP 97.8; O2SAT 97
--- NOTE | 2018-03-16 23:00 | C.PDOC ---
Time Seen by Provider: 03/16/18 22:46 Chief Complaint (Nursing): Substance Abuse Past Medical History Vital Signs: Last Vital Signs Temp 97.8 F 03/16/18 22:43 Pulse 84 03/16/18 22:43 Resp 18 03/16/18 22:43 BP 124/85 03/16/18 22:43 Pulse Ox 97 03/16/18 22:43 - Medical History PMH: Asthma, Depression, Seizures Denies: HIV, HTN, Chronic Kidney Disease, Sexually Transmitted Disease - [facility] Procedures DETOXIFICATION SERVICES FOR SUBSTANCE ABUSE TREATMENT (03/07/18) GROUP SURVEYOR GEOPHYSICAL PROSPECTING FOR SUBSTANCE ABUSE TREATMENT, PSYCHOEDUCATION (02/09/18) INDIV PSYCHOTHERAPY FOR SUBSTANCE ABUSE TREATMENT, SUPPORT (03/07/18) INDIV PSYCHOTHERAPY FOR SUBSTANCE ABUSE, COGNITIV BEHAVIORAL (03/07/18) INDIV PSYCHOTHERAPY FOR SUBSTANCE ABUSE, PSYCHOEDUCATION (03/07/18) Family History: States: Unknown Family Hx - Social History Hx Tobacco Use: Yes Hx Alcohol Use: Yes (VODKA) Hx Substance Use: Yes (REFUSES TO DISCLOSE) - Immunization History Hx Tetanus Toxoid Vaccination: Yes Hx Influenza Vaccination: Yes Hx Pneumococcal Vaccination: No ED Course And Treatment O2 Sat by Pulse Oximetry: 97 Medical Decision Making Medical Decision Making: persistent alcohol abuse same last 4 days, and almost daily in past few weeks. transiently lower glu, but a/o x 3 and eating in ED argumentative, combative w staff demands discharge to street Disposition Doctor Will See Patient In The: Office Counseled Patient/Family Regarding: Studies Performed, Diagnosis - Disposition Referrals: Non [facility] Provider, [Primary Care Provider] - Disposition: HOME/ ROUTINE Disposition Time: 23:00 Condition: GOOD - Clinical Impression Clinical Impression: Alcohol abuse
== END 2018-03-16 23:12 | disposition home or self-care (01) ==
LOC: SUPCPDRO 22:40 → C.ER 22:40
DX: F10.10 Alcohol abuse, uncomplicated (principal); Z72.0 Tobacco use

== ENCOUNTER 2018-03-17 21:17 | Emergency (ER) | payer MEDICAID ==
[2018-03-17 21:17] VITALS: BMI 25.7
--- NOTE | 2018-03-18 01:24 | C.PDOC ---
History Of Present Illness 47 year old male presents to the ER via EMS for public intoxication. Patient denies any physical complaints at this time. Chief Complaint (Nursing): Substance Abuse History Per: Patient History/Exam Limitations: no limitations Onset/Duration Of Symptoms: Hrs Current Symptoms Are (Timing): Still Present Suicide/Self Injury Attempted (Context): None Modifying Factor(s): Alcohol Associated Symptoms: denies: Depression, Suicidal Thoughts Involuntary Hold By: None Recent travel outside of the [place]: No Past Medical History Reviewed: Historical Data, Nursing Documentation, Vital Signs Vital Signs: Last Vital Signs Temp 97.6 F 03/18/18 05:19 Pulse 82 03/18/18 05:19 Resp 20 03/18/18 05:19 BP 121/66 03/18/18 05:19 Pulse Ox 98 03/18/18 05:19 - Medical History PMH: Asthma, Depression, Seizures - [facility] Procedures DETOXIFICATION SERVICES FOR SUBSTANCE ABUSE TREATMENT (03/07/18) GROUP STEAM TUNNEL FEEDER FOR SUBSTANCE ABUSE TREATMENT, PSYCHOEDUCATION (02/09/18) INDIV PSYCHOTHERAPY FOR SUBSTANCE ABUSE TREATMENT, SUPPORT (03/07/18) INDIV PSYCHOTHERAPY FOR SUBSTANCE ABUSE, COGNITIV BEHAVIORAL (03/07/18) INDIV PSYCHOTHERAPY FOR SUBSTANCE ABUSE, PSYCHOEDUCATION (03/07/18) Family History: States: Unknown Family Hx - Social History Hx Tobacco Use: Yes Hx Alcohol Use: Yes (VODKA) Hx Substance Use: Yes (REFUSES TO DISCLOSE) - Immunization History Hx Tetanus Toxoid Vaccination: Yes Hx Influenza Vaccination: Yes Hx Pneumococcal Vaccination: No Review Of Systems Constitutional: Negative for: Fever, Chills Cardiovascular: Negative for: Chest Pain, Palpitations Respiratory: Negative for: Cough, Shortness of Breath Gastrointestinal: Negative for: Nausea, Vomiting Physical Exam - Physical Exam Appears: Non-toxic, Other (ETOH on breath, no sign of injury) Skin: Normal Color, Warm, Dry Head: Atraumatic, Normacephalic Eye(s): bilateral: Normal Inspection Oral Mucosa: Moist Chest: Symmetrical, No Tenderness Cardiovascular: Rhythm Regular Respiratory: Normal Breath Sounds, No Rales, No Rhonchi, No Wheezing Gastrointestinal/Abdominal: Soft, No Tenderness Neurological/Psych: Oriented x3, Normal Speech ED Course And Treatment O2 Sat by Pulse Oximetry: 97 (Room air) Pulse Ox Interpretation: Normal Disposition - Disposition Referrals: [facility] [Outside] [facility] [Outside] Disposition: HOME/ ROUTINE Disposition Time: 04:00 Condition: IMPROVED Additional Instructions: Thank you for letting us take care of you today. The emergency medical care you received today was directed at your acute symptoms. If you were prescribed any medication, please fill it and take as directed. It may take several days for your symptoms to resolve. Return to the Emergency Department if your symptoms worsen, do not improve, or if you have any other problems. Please contact your doctor or call one of the physicians/clinics you have been referred to that are listed on the Patient Visit Information form that is included in your discharge packet. Bring any paperwork you were given at discharge with you along with any medications you are taking to your follow up visit. Our treatment cannot replace ongoing medical care by a primary care provider (PCP) outside of the emergency department. Thank you for allowing the [facility] team to be part of your care today. Follow up with the clinic in 3-5 days for outpatient management. Instructions: Alcohol Abuse and Alcoholism (DC) Forms: [employer] (Qatari) - Clinical Impression Clinical Impression: Alcohol intoxication - Scribe Statement The provider has reviewed the documentation as recorded by the Scribe Omar Ivy All medical record entries made by the Scribe were at my direction and personally dictated by me. I have reviewed the chart and agree that the record accurately reflects my personal performance of the history, physical exam, medical decision making, and the department course for this patient. I have also personally directed, reviewed, and agree with the discharge instructions and disposition.
[2018-03-18 05:20] VITALS: BP 121/66; PULSE 82; RESP 20; TEMP 97.6
[2018-03-18 05:44] VITALS: O2SAT 97
== END 2018-03-18 05:20 | disposition home or self-care (01) ==
LOC: C.ER 21:17
DX: F10.129 Alcohol abuse with intoxication, unspecified (principal); Y90.9 Presence of alcohol in blood, level not specified

== ENCOUNTER 2018-03-18 11:07 | Emergency (ER) | payer MEDICAID ==
[2018-03-18 11:10] VITALS: BMI 25.7
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
[2018-03-18 16:39] VITALS: BP 124/69; PULSE 79; RESP 16; TEMP 98.6
[2018-03-19 07:14] VITALS: O2SAT 95
== END 2018-03-18 16:55 | disposition home or self-care (01) ==
LOC: C.ER 11:07
DX: F10.129 Alcohol abuse with intoxication, unspecified (principal)

== ENCOUNTER 2018-03-19 17:05 | Emergency (ER) | payer MEDICAID, OTHER ==
[2018-03-19 17:05] VITALS: BMI 25.7
[2018-03-19 17:42] VITALS: BP 130/90; PULSE 88; RESP 16; TEMP 97.6; O2SAT 100
--- NOTE | 2018-03-19 18:47 | C.PDOC ---
History Of Present Illness 47 y/o male brought by ambulance to ED for public intoxication. Patient is well known to ER for his daily visits. Denies injuries or any physical complaints. Time Seen by Provider: 03/19/18 18:44 Chief Complaint (Nursing): Substance Abuse History Per: Patient History/Exam Limitations: no limitations Onset/Duration Of Symptoms: Hrs Current Symptoms Are (Timing): Still Present Suicide/Self Injury Attempted (Context): None Modifying Factor(s): Alcohol Involuntary Hold By: None Recent travel outside of the [place]: No Past Medical History Reviewed: Historical Data, Nursing Documentation, Vital Signs Vital Signs: Last Vital Signs Temp 97.6 F 03/19/18 17:40 Pulse 88 03/19/18 17:40 Resp 16 03/19/18 17:40 BP 130/90 03/19/18 17:40 Pulse Ox 100 03/19/18 18:47 - Medical History PMH: Asthma, Depression, Seizures - [facility] Procedures DETOXIFICATION SERVICES FOR SUBSTANCE ABUSE TREATMENT (03/07/18) GROUP PURCHASING SPECIALIST FOR SUBSTANCE ABUSE TREATMENT, PSYCHOEDUCATION (02/09/18) INDIV PSYCHOTHERAPY FOR SUBSTANCE ABUSE TREATMENT, SUPPORT (03/07/18) INDIV PSYCHOTHERAPY FOR SUBSTANCE ABUSE, COGNITIV BEHAVIORAL (03/07/18) INDIV PSYCHOTHERAPY FOR SUBSTANCE ABUSE, PSYCHOEDUCATION (03/07/18) Family History: States: Unknown Family Hx - Social History Hx Tobacco Use: Yes Hx Alcohol Use: Yes (VODKA) Hx Substance Use: Yes (REFUSES TO DISCLOSE) - Immunization History Hx Tetanus Toxoid Vaccination: Yes Hx Influenza Vaccination: Yes Hx Pneumococcal Vaccination: No Review Of Systems Constitutional: Negative for: Fever, Chills Cardiovascular: Negative for: Chest Pain Respiratory: Negative for: Cough, Shortness of Breath Gastrointestinal: Negative for: Nausea, Vomiting, Abdominal Pain, Diarrhea Skin: Negative for: Rash Neurological: Negative for: Weakness, Numbness Psych: Negative for: Suicidal ideation Physical Exam - Physical Exam Appears: Well, Non-toxic, No Acute Distress, Other (Stable and easily arousable) Skin: Normal Color, Warm, Dry Head: Atraumatic, Normacephalic Eye(s): bilateral: Normal Inspection, PERRL, EOMI Nose: Normal, No Epistaxis, No Deformity Oral Mucosa: Moist Throat: Normal, No Erythema, No Exudate, No Drooling Neck: Supple Chest: Symmetrical, No Tenderness Cardiovascular: Rhythm Regular Respiratory: Normal Breath Sounds, No Decreased Breath Sounds, No Rales, No Rhonchi, No Wheezing Gastrointestinal/Abdominal: Soft, No Tenderness, No Distention Extremity: Normal ROM, No Tenderness, No Deformity Extremity: Bilateral: Normal Color And Temperature, Normal ROM Neurological/Psych: Oriented x3, Normal Speech, Normal Cognition, Other (no focal deficits ) Gait: Steady ED Course And Treatment O2 Sat by Pulse Oximetry: 100 (RA) Pulse Ox Interpretation: Normal Medical Decision Making Medical Decision Making: daily presentations for same. no new issues easily arousable malingering. Disposition Doctor Will See Patient In The: Office Counseled Patient/Family Regarding: Studies Performed, Diagnosis - Disposition Referrals: [facility]ics Anonymous [Outside] [facility] [Outside] [facility] [Outside] [facility] [Outside] [facility] [Outside] Disposition: HOME/ ROUTINE Disposition Time: 18:47 Condition: GOOD Additional Instructions: continue to seek nightly usp placement seek AA Seek outpatient psych follow-up for your issues. Instructions: Alcohol Abuse and Alcoholism (DC) Forms: [employer] (Mongolian) - Clinical Impression Clinical Impression: Alcohol abuse, Malingering - Scribe Statement The provider has reviewed the documentation as recorded by the Scribshona Mcghee All medical record entries made by the Scribe were at my direction and personally dictated by me. I have reviewed the chart and agree that the record accurately reflects my personal performance of the history, physical exam, medical decision making, and the department course for this patient. I have also personally directed, reviewed, and agree with the discharge instructions and disposition.
== END 2018-03-19 20:16 | disposition home or self-care (01) ==
LOC: C.ER 17:05
DX: F10.10 Alcohol abuse, uncomplicated (principal); Y90.9 Presence of alcohol in blood, level not specified; Z76.5 Malingerer [conscious simulation]

== ENCOUNTER 2018-03-24 10:21 | Emergency (ER) | payer MEDICAID, OTHER ==
[2018-03-24 10:21] VITALS: BMI 25.7
[2018-03-24 10:28] VITALS: TEMP 97.6
[2018-03-24] MEDS: Sodium Chloride 0.9% 1,000 ML IV ONE (11:21)
[2018-03-24 11:27] LABS: BASO # 0.1 K/uL (0.0-0.2); BASO % 1.9 % (0.0-2.0); EOS # 0.1 K/uL (0.0-0.7); EOS % 2.9 % (0.0-4.0); HEMOGLOBIN 13.1 g/dL (12.0-18.0); LYMPH # 1.4 K/uL (1.0-4.3); LYMPH % 42.2 % (20.0-40.0); MEAN CELL VOLUME 100.5 fL (80.0-94.0); MEAN CORPUSCULAR HEMOGLOBIN 35.2 pg (27.0-31.0); MEAN PLATELET VOLUME 8.3 fL (7.2-11.7); MONO # 0.4 K/uL (0.0-0.8); MONO % 11.7 % (0.0-10.0); NEUT # 1.4 K/uL (1.8-7.0); NEUT % 41.3 % (50.0-75.0); NRBC % 0.1 % (0.0-2.0); RBC 3.72 Mil/uL (4.40-5.90); WHITE BLOOD COUNT 3.3 K/uL (4.8-10.8)
[2018-03-24 11:41] LABS: ALB/GLOB RATIO 1.3 (1.0-2.1); ALBUMIN 4.2 g/dL (3.5-5.0); ALT/SGPT 58 U/L (21-72); AST/SGOT 123 U/L (17-59); BLOOD UREA NITROGEN 6 mg/dL (9-20); GFR AFRICAN-AMERICAN > 60; GFR NON-AFRICAN AMERICAN > 60
[2018-03-24 11:47] LABS: B-TYPE NATRIURETIC PEPTIDE 23.8 pg/mL (0-450)
[2018-03-24] MEDS ORDERED: Albuterol-Ipratrop 3 mg / 0.5 (3 ml) UD IH STA (11:48)
--- NOTE | 2018-03-24 11:49 | C.PDOC ---
History Of Present Illness 47 year old male, whose PMHx includes Diabetes, presents to the ED for evaluation brought in by EMS with complaints of tiredness, dizziness and body pain. Patient admits to drinking alcohol and is unable to recall his last intake. Patient poor historian intoxicated Time Seen by Provider: 03/24/18 10:34 Chief Complaint (Nursing): Weakness/Neurological Deficit History Per: Patient History/Exam Limitations: no limitations Onset/Duration Of Symptoms: Days Current Symptoms Are (Timing): Still Present Suicide/Self Injury Attempted (Context): None Modifying Factor(s): Alcohol Associated Symptoms: denies: Suicidal Thoughts, Suicidal Plan Involuntary Hold By: None Recent travel outside of the [place]: No Additional History Per: Patient Past Medical History Reviewed: Historical Data, Nursing Documentation, Vital Signs Vital Signs: Last Vital Signs Temp 97.6 F 03/24/18 15:09 Pulse 84 03/24/18 15:09 Resp 20 03/24/18 15:09 BP 122/74 03/24/18 15:09 Pulse Ox 90 L 03/24/18 17:51 - Medical History PMH: Asthma, Depression, Seizures Surgical History: No Surg Hx - [facility] Procedures DETOXIFICATION SERVICES FOR SUBSTANCE ABUSE TREATMENT (03/07/18) GROUP HEAD PORTER FOR SUBSTANCE ABUSE TREATMENT, PSYCHOEDUCATION (02/09/18) INDIV PSYCHOTHERAPY FOR SUBSTANCE ABUSE TREATMENT, SUPPORT (03/07/18) INDIV PSYCHOTHERAPY FOR SUBSTANCE ABUSE, COGNITIV BEHAVIORAL (03/07/18) INDIV PSYCHOTHERAPY FOR SUBSTANCE ABUSE, PSYCHOEDUCATION (03/07/18) Family History: States: Unknown Family Hx - Social History Hx Tobacco Use: Yes Hx Alcohol Use: Yes (VODKA) Hx Substance Use: Yes (REFUSES TO DISCLOSE) - Immunization History Hx Tetanus Toxoid Vaccination: Yes Hx Influenza Vaccination: Yes Hx Pneumococcal Vaccination: No Review Of Systems Constitutional: Negative for: Fever, Chills Respiratory: Positive for: Cough Gastrointestinal: Positive for: Vomiting Musculoskeletal: Positive for: Back Pain Neurological: Positive for: Dizziness Psych: Positive for: Other (alcohol intake ) Physical Exam - Physical Exam Appears: Non-toxic, No Acute Distress, Other (visibly intoxicated ) Skin: Normal Color, Warm, Dry Head: Atraumatic, Normacephalic Eye(s): bilateral: Normal Inspection, EOMI Oral Mucosa: Moist, Other (alcohol on breath ) Neck: Supple Chest: Symmetrical, No Deformity, No Tenderness Cardiovascular: Rhythm Regular, No Murmur Respiratory: Normal Breath Sounds, No Rales, No Rhonchi, No Wheezing, Other ( poor effort ) Gastrointestinal/Abdominal: Soft, No Tenderness, No Guarding, No Rebound Extremity: Normal ROM, No Tenderness, No Pedal Edema, Capillary Refill (less than 2 seconds ), No Swelling Pulses: Left Radial: Normal Neurological/Psych: No Normal Speech (slurred ), Other (oriented to person and place ) Disoriented To: Place, Time ED Course And Treatment - Laboratory Results Result Diagrams: 03/24/18 11:19 03/24/18 11:19 Lab Interpretation: No Acute Changes O2 Sat by Pulse Oximetry: 90 Pulse Ox Interpretation: Normal Medical Decision Making Medical Decision Making: Impression: 47 year old male with dizziness Plan: * bloodwork * urinalysis * CXR * Albuterol INH * IV Fluids Progress: Bloodwork, urinalysis, CXR ordered and reviewed. Albuterol INH and IV Fluids administered. Patient observed in ED for hours Patient was fed and tolerated. He was ambulatory with steady gait. Patient clinically sober for discharge Disposition Counseled Patient/Family Regarding: Need For Followup - Disposition Referrals: Alcoholics Anonymous [Outside] Disposition: HOME/ ROUTINE Disposition Time: 15:15 Condition: GOOD Instructions: Alcohol Abuse and Alcoholism (DC) Forms: [facility] (Belarusian) - POA Present On Arrival: None - Clinical Impression Clinical Impression: Alcohol intoxication, Alcohol abuse - PA / OUTSIDE LABORER / Resident Statement MD/DO has reviewed & agrees with the documentation as recorded. - Scribe Statement The provider has reviewed the documentation as recorded by the Scribe (Jessica Miller) All medical record entries made by the Scribe were at my direction and personally dictated by me. I have reviewed the chart and agree that the record accurately reflects my personal performance of the history, physical exam, medical decision making, and the department course for this patient. I have also personally directed, reviewed, and agree with the discharge instructions and disposition.
[2018-03-24 11:50] VITALS: RESP 20
[2018-03-24] MEDS ORDERED: Albuterol-Ipratrop 3 mg / 0.5 (3 ml) UD ONE (12:07)
[2018-03-24 12:17] LABS: URINE BILIRUBIN NEGATIVE (NEGATIVE); URINE BLOOD NEGATIVE (NEGATIVE); URINE CLARITY Clear (Clear); URINE COLOR Straw (YELLOW); URINE GLUCOSE (UA) NORMAL (Normal); URINE LEUKOCYTE ESTERASE NEG Leu/uL (Negative); URINE PROTEIN NEGATIVE (NEGATIVE); URINE UROBILINOGEN NORMAL mg/dL (0.2-1.0)
[2018-03-24 12:35] LABS: BARBITURATES, UR NEGATIVE (NEGATIVE); BENZODIAZEPINES, UR NEGATIVE (NEGATIVE); OPIATES, UR NEGATIVE (NEGATIVE); PHENCYCLIDINE, UR NEGATIVE (NEGATIVE)
--- NOTE | 2018-03-24 13:08 | RAD ---
PROCEDURE: CHEST RADIOGRAPH, 1 VIEW HISTORY: SOB COMPARISON: 03/15/2018 FINDINGS: LUNGS: Clear. PLEURA: No pneumothorax or pleural fluid seen. CARDIOVASCULAR: Normal. OSSEOUS STRUCTURES: No significant abnormalities. VISUALIZED UPPER ABDOMEN: Normal. OTHER FINDINGS: None. IMPRESSION: No active disease.
[2018-03-24 15:10] VITALS: BP 122/74; PULSE 84
[2018-03-24 17:52] VITALS: O2SAT 90
== END 2018-03-24 15:21 | disposition home or self-care (01) ==
LOC: C.ER 10:21
DX: F10.129 Alcohol abuse with intoxication, unspecified (principal); Y90.8 Blood alcohol level of 240 mg/100 ml or more
CPT/HCPCS: 71045; 80053; 80320; 80324; 80345; 80346; 80349; 80353; 80358; 80361; 81001; 82948; 83880; 83992; 85025; 96360; 99285; J7040

== ENCOUNTER 2018-03-25 17:14 | Emergency (ER) | payer OTHER ==
[2018-03-25 17:14] VITALS: BMI 25.7
[2018-03-25 17:33] VITALS: BP 138/68; PULSE 100; RESP 19; TEMP 98.6; O2SAT 96
== END 2018-03-25 18:28 | disposition left against medical advice (07) ==
LOC: C.ER 17:14
DX: Z02.89 Encounter for other administrative examinations (principal); E16.2 Hypoglycemia, unspecified
CPT/HCPCS: 82948; LWBS0

== ENCOUNTER 2018-03-26 23:54 | Emergency (ER) | payer MEDICAID, OTHER ==
[2018-03-26 23:54] VITALS: BMI 25.7
[2018-03-27 00:05] VITALS: RESP 20; TEMP 98.3
--- NOTE | 2018-03-27 01:53 | C.PDOC ---
History Of Present Illness 47 year old male brought to the emergency department by EMS for alcohol intoxication. Patient admits to drinking alcohol today. He is well known in the ED for multiple visits. He denies any physical complaints. Time Seen by Provider: 03/26/18 23:57 Chief Complaint (Nursing): Substance Abuse History Per: Patient History/Exam Limitations: no limitations Onset/Duration Of Symptoms: Hrs (today) Current Symptoms Are (Timing): Still Present Suicide/Self Injury Attempted (Context): None Modifying Factor(s): Alcohol Involuntary Hold By: Emergency Physician Past Medical History Reviewed: Historical Data, Nursing Documentation, Vital Signs Vital Signs: Last Vital Signs Temp 98.3 F 03/27/18 00:01 Pulse 69 03/27/18 05:00 Resp 20 03/27/18 05:00 BP 101/68 03/27/18 05:00 Pulse Ox 98 03/27/18 05:00 - Medical History PMH: Asthma, Depression, Seizures Surgical History: No Surg Hx - [facility] Procedures DETOXIFICATION SERVICES FOR SUBSTANCE ABUSE TREATMENT (03/07/18) GROUP RAILROAD CAR PAINTER FOR SUBSTANCE ABUSE TREATMENT, PSYCHOEDUCATION (02/09/18) INDIV PSYCHOTHERAPY FOR SUBSTANCE ABUSE TREATMENT, SUPPORT (03/07/18) INDIV PSYCHOTHERAPY FOR SUBSTANCE ABUSE, COGNITIV BEHAVIORAL (03/07/18) INDIV PSYCHOTHERAPY FOR SUBSTANCE ABUSE, PSYCHOEDUCATION (03/07/18) Family History: States: No Known Family Hx - Social History Hx Tobacco Use: Yes Hx Alcohol Use: Yes (VODKA) Hx Substance Use: No - Immunization History Hx Tetanus Toxoid Vaccination: Yes Hx Influenza Vaccination: Yes Hx Pneumococcal Vaccination: No Review Of Systems Constitutional: Positive for: Other (ETOH intoxication) Cardiovascular: Negative for: Chest Pain Respiratory: Negative for: Cough, Shortness of Breath Gastrointestinal: Negative for: Nausea, Vomiting, Abdominal Pain Physical Exam - Physical Exam Appears: Well, Non-toxic, No Acute Distress, Other (smells of ETOH) Skin: Normal Color, Warm, Dry Head: Normacephalic Eye(s): bilateral: Normal Inspection Oral Mucosa: Moist Neck: Normal, Normal ROM Cardiovascular: Rhythm Regular Respiratory: Normal Breath Sounds, No Rales, No Rhonchi, No Wheezing Gastrointestinal/Abdominal: Normal Exam, Bowel Sounds, Soft, No Tenderness Extremity: Normal ROM, No Pedal Edema, No Deformity, No Swelling Neurological/Psych: Other (arousable to verbal stimuli) ED Course And Treatment O2 Sat by Pulse Oximetry: 96 (RA) Pulse Ox Interpretation: Normal Progress Note: Plan: Accucheck ordered and reviewed. Patient pending sobriety. 2:45am- Patient arousable to verbal stimuli, resting comfortably. Pending sobriety. Reevaluation Time: 05:50 Reassessment Condition: Improved (Patient is currently AAOx3, ambulating normally in ED. He is clinically sober at this time, will discharge.) Disposition Counseled Patient/Family Regarding: Studies Performed, Diagnosis, Need For Followup - Disposition Referrals: [facility] [Outside] Disposition: HOME/ ROUTINE Disposition Time: 05:55 Condition: STABLE Instructions: Alcohol Abuse and Alcoholism (DC) Forms: [facility] (Belarusian) Print Language: YAKUT - Clinical Impression Clinical Impression: Alcohol intoxication - Scribe Statement The provider has reviewed the documentation as recorded by the [facility] Provider Attestation: All medical record entries made by the Ronnyibshona were at my direction and personally dictated by me. I have reviewed the chart and agree that the record accurately reflects my personal performance of the history, physical exam, medical decision making, and the department course for this patient. I have also personally directed, reviewed, and agree with the discharge instructions and disposition.
[2018-03-27 05:31] VITALS: BP 101/68; PULSE 69
[2018-04-03 16:48] VITALS: O2SAT 96
== END 2018-03-27 06:00 | disposition home or self-care (01) ==
LOC: C.ER 23:54
DX: F10.129 Alcohol abuse with intoxication, unspecified (principal); Z72.0 Tobacco use